=== PATIENT | male | born 1950 | race African-American/Black ===

== ENCOUNTER 2018-02-15 20:38 | Emergency (ER) | payer MEDICARE, MEDICAID ==
[~2018-02-15 20:38] MED LIST: ISOVUE-370 76%-LOCM 1 ML ONE
[2018-02-15] MEDS ORDERED: hydrALAZINE 20 MG/ML VIAL ONE (21:02)
[2018-02-15 21:20] LABS: #Eosinphils 0.1 thou/uL (0.0-0.7); #Lymphocytes 1.2 thou/uL (1.20-3.40); #Monocytes 0.8 thou/uL (0.11-0.59); #Neutrophils 5.3 thou/uL (1.40-6.50); %Basophils 0.3 % (0.0-1.0); %Eosinophils 1.7 % (0.0-10.0); %Lymphocytes 15.8 % (21.0-51.0); %Monocytes 10.8 % (0.0-10.0); %Neutrophils 71.4 % (42.0-75.0); Mean Corpuscular HGB CONC 33.3 g/dL (32.0-36.0); Mean Corpuscular Hemoglobin 32.4 pg (27.0-31.0); Mean Corpuscular Volume 97.2 fL (78.0-98.0); Mean Platelet Volume 7.9 fL (7.4-10.4); Platelet Count 212 thou/uL (130-400); RBC Distribution Width 11.8 % (11.5-14.5); Red Blood Cell (RBC) Count 4.33 mill/uL (4.70-6.10); White Blood Cell (WBC) Count 7.4 thou/uL (4.8-10.8)
--- NOTE | 2018-02-15 21:38 | RAD ---
FRONTAL VIEW CHEST SERIES: INDICATIONS: Chest pain. COMPARISON: 01/24/2017 FINDINGS: Postoperative findings of the chest are again seen. The cardiac silhouette is accentuated by the por table technique and patient rotation. There is hyperinflation of the lungs with interstitial promine nce. No additional significant interval change. IMPRESSION: 1. Postoperative chest. 2. Chronic obstructive pulmonary disease. POS: [facility]
[2018-02-15 21:43] LABS: ALT (SGPT) 11 U/L (8-55); AST (SGOT) 12 U/L (5-34); Albumin 3.8 g/dL (3.4-4.8); Alkaline Phosphatase 83 U/L (40-150); Anion Gap 9 mmol/L (10-20); BUN (Urea Nitrogen) 10 mg/dL (8.4-25.7); Bilirubin, Total 0.6 mg/dL (0.2-1.2); CK (CPK) 57 U/L (30-200); Calc. Creatinine Clearance 0 mL/min (70-130); Calcium 10.3 mg/dL (7.8-10.44); Carbon Dioxide 30 mmol/L (23-31); Chloride 104 mmol/L (98-107); Estimated GFR-MDRD 74; Globulin 3.2 g/dL (2.4-3.5); Glucose 104 mg/dL (80-115); Lipase 9 U/L (8-78); Potassium 4.1 mmol/L (3.5-5.1); Sodium 139 mmol/L (136-145)
[2018-02-15 21:47] LABS: Troponin I Less than 0.010 ng/mL (< 0.028)
--- NOTE | 2018-02-15 22:48 | CT ---
CT ABDOMEN AND PELVIS WITH CONTRAST: INDICATIONS: Abdominal pain. COMPARISON: 01/24/2017 FINDINGS: There is scattered patchy density of the imaged lung bases that may relate to atelectasis. Intersper sed lucency is consistent with pulmonary emphysema. Extensive vascular disease is present, as was de picted on prior aortogram on 01/24/2017, with aneurysmal dilatation of the abdominal aorta, measuring approximately 3.5 cm, grossly stable. Marked vascular disease of the bilateral iliac arteries as we ll. The bowel is incompletely characterized without enteric contrast administration. Stable promine nce of the right renal pelvis is seen. There are hypodensities of the bilateral renal parenchyma, gr ossly stable, too small to definitively characterized. No free air visualized. Scattered osseous de generative changes seen. IMPRESSION: 1. Extensive atherosclerotic vascular disease with redemonstration of abdominal aortic aneurysm. 2. Incomplete assessment of the bowel without enteric contrast. POS: [facility]
[2018-02-15 23:25] LABS: Troponin I 0.011 ng/mL (< 0.028)
== END 2018-02-16 00:39 | disposition home or self-care (01) ==
LOC: ERS 20:38
DX: R10.32 Left lower quadrant pain (principal); J44.9 Chronic obstructive pulmonary disease, unspecified; I25.10 Atherosclerotic heart disease of native coronary artery without angina pectoris; I10 Essential (primary) hypertension; F17.220 Nicotine dependence, chewing tobacco, uncomplicated; Z79.82 Long term (current) use of aspirin; Z79.899 Other long term (current) drug therapy
CPT/HCPCS: 36415; 71045; 74177; 80053; 82553; 83690; 83880; 84484; 85025; 93005; 96374; J0360

== ENCOUNTER 2018-02-24 09:19 | Emergency (ER) | payer MEDICARE, OTHER ==
[2018-02-24 10:15] LABS: Hemoglobin 12.8 g/dL (14.0-18.0); Mean Corpuscular HGB CONC 31.7 g/dL (32.0-36.0); Mean Corpuscular Hemoglobin 30.6 pg (27.0-31.0); Mean Corpuscular Volume 96.4 fL (78.0-98.0); Mean Platelet Volume 7.3 fL (7.4-10.4); Platelet Count 311 thou/uL (130-400); RBC Distribution Width 11.5 % (11.5-14.5); Red Blood Cell (RBC) Count 4.18 mill/uL (4.70-6.10)
[2018-02-24 10:38] LABS: Band 4 % (5-11); Eosinophils 1 % (0-10); Lymphocytes 7 % (21-51); MDiff Complete? YES; Monocytes 3 % (0-10); Neutrophil 85 % (42-75); RBC Morphology Normal
[2018-02-24 10:43] LABS: ALT (SGPT) 17 U/L (8-55); AST (SGOT) 18 U/L (5-34); Albumin 3.3 g/dL (3.4-4.8); Alkaline Phosphatase 103 U/L (40-150); Anion Gap 15 mmol/L (10-20); BUN (Urea Nitrogen) 10 mg/dL (8.4-25.7); Bilirubin, Total 0.6 mg/dL (0.2-1.2); Calc. Creatinine Clearance 0 mL/min (70-130); Calcium 10.8 mg/dL (7.8-10.44); Carbon Dioxide 25 mmol/L (23-31); Chloride 101 mmol/L (98-107); Estimated GFR-MDRD 90; Globulin 3.9 g/dL (2.4-3.5); Glucose 98 mg/dL (80-115); Lipase 4 U/L (8-78); Potassium 4.5 mmol/L (3.5-5.1); Protein, Total 7.2 g/dL (5.8-8.1); Sodium 136 mmol/L (136-145)
[2018-02-24] MEDS ORDERED: Mag-Al 1200 mg/1200 mg/30 ML UDCUP ONE (11:39)
[2018-02-24] MEDS ORDERED: hydrALAZINE 20 MG/ML VIAL ONE (11:39)
[2018-02-24] MEDS ORDERED: Lidocaine Viscous Sol 2% 15 ml UD Cup ONE (11:39)
[2018-02-24 12:25] LABS: Bilirubin Negative (Negative); Blood, Urine Negative (Negative); Clarity CLEAR (Clear); Glucose, Urine (Dipstick) Negative (Negative); Leukocyte Negative (Negative); Nitrite Negative (Negative); Protein, Urine (Dipstick) Negative (Neg-Trace); Specific Gravity, Urine 1.009 (1.002-1.036)
[2018-02-24] MEDS ORDERED: cloNIDine 0.1 MG TAB ONE (12:25)
--- NOTE | 2018-02-26 16:37 | EKG ---
Test Reason : Blood Pressure : / mmHG Vent. Rate : 069 BPM Atrial Rate : 069 BPM P-R Int : 166 ms QRS Dur : 094 ms QT Int : 410 ms P-R-T Axes : 065 -13 015 degrees QTc Int : 439 ms Normal sinus rhythm with sinus arrhythmia Possible Inferior infarct , age undetermined Abnormal ECG Confirmed by DOUGLAS BERMUDEZ ([id number]), television news video editor ESCOBAR MCCRAY ([id number]) on 02/26/2018 4:37:22 PM Referred By: Confirmed By:DOUGLAS BERMUDEZ
== END 2018-02-24 14:05 | disposition home or self-care (01) ==
LOC: ERS 09:19
DX: R10.9 Unspecified abdominal pain (principal); I10 Essential (primary) hypertension; J44.9 Chronic obstructive pulmonary disease, unspecified; I25.10 Atherosclerotic heart disease of native coronary artery without angina pectoris; F17.210 Nicotine dependence, cigarettes, uncomplicated; Z79.82 Long term (current) use of aspirin; Z79.899 Other long term (current) drug therapy
CPT/HCPCS: 36415; 80053; 81003; 83690; 85025; 93005; 96361; 96374; J0360

== ENCOUNTER 2018-08-09 13:47 | Outpatient (CLI) | payer MEDICARE, MEDICAID ==
--- NOTE | 2018-08-09 15:48 | PET ---
PET CT: HISTORY: Pulmonary mass. COMPARISON: CT of the chest 07/08/2018. TECHNIQUE: A PET CT was performed from the skull base to the mid thigh after administration of 10.1 mCi of F18-F DG. FINDINGS: There is a right perihilar mass with a maximum SUV value of 10.3. Peripheral to this mass and extend ing from the mass, there are multiple areas of nodularity. None of these areas of nodularity are hyp ermetabolic. These have not changed in appearance compared to the prior chest CT. There is an area of metabolic activity in the left upper lobe. This is in the region of the previous ly seen ground-glass attenuation of the left upper lobe. Max SUV value of this region is 2.0. No ot her areas of metabolic or hypermetabolic activity are seen within the lungs. No pleural effusion is seen. The heart is normal in size. No hypermetabolic mediastinal or hilar lymph nodes are appreciated. No suspicious areas of hypermetabolic activity are seen within the neck. No suspicious areas of hype rmetabolic activity are seen within the abdomen or pelvis. No suspicious areas of hypermetabolic act ivity are seen in the skeleton. Dense atherosclerotic calcifications were seen in the aorta. There is stent graft along the aortic arch and descending thoracic aorta. There is ectasia of the infrarenal aorta. No enlarged or hyperm etabolic lymph nodes are seen in the abdomen or pelvis. IMPRESSION: 1. The right pulmonary mass is hypermetabolic and concerning for malignancy. 2. There is metabolic activity in the left upper lobe also concerning for malignancy, although this region is not yet hypermetabolic. However, this is not extensively soft tissue density and primarily is ground-glass attenuation. 3. The multiple areas of nodularity surrounding the right hilar mass do not demonstrate hypermetabol ic activity. POS: [facility]
== END 2018-08-09 13:48 | disposition home or self-care (01) ==
LOC: PET 13:47
PROVIDERS: ATTEND Internal Medicine
DX: R91.8 Other nonspecific abnormal finding of lung field (principal)
CPT/HCPCS: 78815; A9552

== ENCOUNTER 2018-08-26 08:00 | Day surgery (SDC) | payer MEDICARE, MEDICAID ==
[2018-08-23 12:18] VITALS: BMI 19.8
[2018-08-26] MEDS ORDERED: Albuterol Sulfate 1.25 MG/3 ML NEB ONE (09:46)
[2018-08-26] MEDS ORDERED: Fentanyl 100 MCG/2 ML VIAL ONE (11:36)
[2018-08-26 14:02] LABS: BF Color Red; Body Fluid Source Bronchial Washings; Clarity Cloudy/Turbid (Clear); RBC Background Count 0.002; RBC Count-Automated 233000 /cumm; Tube # EDTA; WBC Background Count 0.03; WBC/NonHematic-Auto 209 /cumm
[2018-08-26 14:29] LABS: BF Segmented Neutrophils 28 %; Cell Count Non Hematic 44 %; Eosinophils 2 %; Lymphocytes 24 %
[2018-08-26] MEDS ORDERED: PROPOFOL 200 MG/20 ML VIAL ONE (15:44)
[2018-08-26] MEDS ORDERED: Dexamethasone 20 MG/5 ML VIAL ONE (15:44)
[2018-08-26] MEDS ORDERED: Glycopyrrolate 0.2 MG/ML 5 ML SYRINGE ONE (15:44)
[2018-08-26] MEDS ORDERED: Ondansetron PF 4 MG/2 ML Vial ONE (15:44)
[2018-08-26] MEDS ORDERED: Rocuronium Bromide 10 MG/ML (10ML VIAL) ONE (15:44)
[2018-08-26] MEDS ORDERED: PHENYLEPHRINE-NS 100 MCG/ML 10 ML SYRINGE ONE (15:44)
[2018-08-26] MEDS ORDERED: Lidocaine 1% PF 5 ML VIAL ONE (15:44)
--- NOTE | 2018-08-26 16:10 | OP ---
DATE OF PROCEDURE: 08/26/2018 SERVICE: Pulmonary Medicine. PROCEDURE PERFORMED: Fiberoptic bronchoscopy with; 1. Visual airway inspection. 2. Endobronchial brush of the right upper lobe. 3. Bronchoalveolar lavage of the right upper lobe. 4. Endobronchial biopsy of the right upper lobe. 5. Transbronchial biopsy of the right upper lobe. PREPROCEDURE DIAGNOSIS: Pulmonary mass. POSTPROCEDURE DIAGNOSIS: Pulmonary mass. MEDICATIONS USED: For list of medications, please refer to anesthesia documentation. PREANESTHESIA ASSESSMENT: H and P had been performed. The patient's medications and allergies were reviewed. Informed consent was obtained after discussing the risks, benefits, and rationale for performing the procedure in addition to the alternative options. DESCRIPTION OF PROCEDURE: Time-out was performed identifying the correct procedure and patient with name and date of . A diagnostic fiberoptic bronchoscope was introduced through the 8.0 endotracheal tube. The bronchoscope was advanced into the trachea, where a tracheobronchial tree inspection was carried out with clear identification of the right upper lobe, right middle lobe, left upper lobe, lingula, and left lower lobe. Anatomy was essentially normal to the segmental level. There appeared to be some extrinsic compression of the superior segment of the right upper lobe with some degree of mucosal irregularity. Bronchoalveolar lavage was obtained from the anterior and superior segments of the right upper lobe. Endobronchial brushings were obtained from the superior segment and anterior segment of the right upper lobe under fluoroscopic guidance. Transbronchial biopsies were also performed in the anterior segment of the right upper lobe. Endobronchial biopsy was obtained on the irregular mucosa where there was extrinsic compression of the superior segment of the right upper lobe. Hemostasis was verified and the bronchoscope was subsequently removed from the patient. Postprocedure fluoroscopy did not demonstrate a pneumothorax. FINDINGS: 1. Mucosal irregularities of the superior segment of the right upper lobe were identified. Biopsies were taken at that site. 2. Secretions were minimal. SPECIMENS OBTAINED: 1. Transbronchial biopsies, endobronchial biopsy, BAL, and brushing, all for pathology. 2. Microbiology on BAL. COMPLICATIONS: None. ESTIMATED BLOOD LOSS: 5 mL. FLUOROSCOPY TIME: Less than 3 minutes. DISPOSITION: The patient will be discharged home with postprocedure instructions. He will return to clinic as previously directed. Job ID: [id number] [facility]
[2018-08-30 10:22] LABS: Fungus Stain Final report (.)
== END 2018-08-26 15:30 | disposition home or self-care (01) ==
LOC: SDC 08:00
PROVIDERS: ATTEND Internal Medicine
PROC: 0BB48ZX Excision of Right Upper Lobe Bronchus, Via Natural or Artificial Opening Endoscopic, Diagnostic (ICD-10-PCS; principal; 2018-08-26)
PROC: 0B9C8ZX Drainage of Right Upper Lung Lobe, Via Natural or Artificial Opening Endoscopic, Diagnostic (ICD-10-PCS; 2018-08-26)
DX: J98.4 Other disorders of lung (principal); I10 Essential (primary) hypertension; E78.5 Hyperlipidemia, unspecified; I25.10 Atherosclerotic heart disease of native coronary artery without angina pectoris; I48.91 Unspecified atrial fibrillation; Z95.1 Presence of aortocoronary bypass graft; F17.210 Nicotine dependence, cigarettes, uncomplicated; Z79.82 Long term (current) use of aspirin; Z79.899 Other long term (current) drug therapy; Z88.0 Allergy status to penicillin; Z88.8 Allergy status to other drugs, medicaments and biological substances
CPT/HCPCS: 85060; 87070; 87077; 87102; 87116; 87205; 87206; 88112; 88305; 88312; 89051; J1100; J2001; J2405; J2704; J3010; J7620

== ENCOUNTER 2018-09-05 22:09 | Inpatient (IN) | payer MEDICARE, MEDICAID ==
[2018-09-05 22:30] LABS: #Basophils 0.1 thou/uL (0.0-0.2); #Eosinphils 0.1 thou/uL (0.0-0.7); #Lymphocytes 1.1 thou/uL (1.20-3.40); #Monocytes 1.1 thou/uL (0.11-0.59); #Neutrophils 10.4 thou/uL (1.40-6.50); %Basophils 0.6 % (0.0-1.0); %Eosinophils 0.6 % (0.0-10.0); %Lymphocytes 8.2 % (21.0-51.0); %Monocytes 8.9 % (0.0-10.0); %Neutrophils 81.7 % (42.0-75.0); Hemoglobin 12.7 g/dL (14.0-18.0); Mean Corpuscular Hemoglobin 30.2 pg (27.0-31.0); Mean Corpuscular Volume 97.6 fL (78.0-98.0); Mean Platelet Volume 7.2 fL (7.4-10.4); Platelet Count 406 thou/uL (130-400); RBC Distribution Width 12.9 % (11.5-14.5); Red Blood Cell (RBC) Count 4.21 mill/uL (4.70-6.10); White Blood Cell (WBC) Count 12.8 thou/uL (4.8-10.8)
[2018-09-05] MEDS ORDERED: Azithromycin 500 MG VIAL ONE (22:39)
[2018-09-05] MEDS ORDERED: cefTRIAXone\\ROCEPHIN 2 GM VIAL ONE (22:39)
[2018-09-05 22:49] LABS: ALT (SGPT) 19 U/L (8-55); AST (SGOT) 18 U/L (5-34); Albumin 3.6 g/dL (3.4-4.8); Alkaline Phosphatase 118 U/L (40-150); Anion Gap 16 mmol/L (10-20); BUN (Urea Nitrogen) 10 mg/dL (8.4-25.7); Bilirubin, Total 0.8 mg/dL (0.2-1.2); Calc. Creatinine Clearance 0 mL/min (70-130); Calcium 10.7 mg/dL (7.8-10.44); Carbon Dioxide 24 mmol/L (23-31); Chloride 103 mmol/L (98-107); Estimated GFR-MDRD Greater than 90; Globulin 4.1 g/dL (2.4-3.5); Glucose 130 mg/dL (80-115); Potassium 3.6 mmol/L (3.5-5.1); Protein, Total 7.7 g/dL (5.8-8.1); Sodium 139 mmol/L (136-145)
--- NOTE | 2018-09-05 23:35 | RAD ---
ONE VIEW CHEST: History: Cough. Difficulty breathing. Correlation: Chest CT 07-08-18. Comparison: 07-03-18. FINDINGS: Worsening opacification of right hemithorax likely due to obstructive atelectasis, pneumonia or progr ession of tumor. There are also increased opacities in the right lower lobe and left lower lobe which may represent infiltrate. There is no pneumothorax. Stable post-surgical changes with a stent overly ing the aorta and sternotomy wires. Stable configuration of the cardiac silhouette. IMPRESSION: Worsening opacification lung parenchyma as described above. Findings favor progression of disease. Virgen per imposed pneumonia cannot be excluded. POS: [facility]
[2018-09-06] MEDS ORDERED: Ondansetron PF 4 MG/2 ML Vial IVP PRN (00:56)
[2018-09-06] MEDS ORDERED: Ondansetron ODT 4 MG TAB PO PRN (00:56)
[2018-09-06 05:23] LABS: Anion Gap 14 mmol/L (10-20); BUN (Urea Nitrogen) 10 mg/dL (8.4-25.7); Calc. Creatinine Clearance 0 mL/min (70-130); Calcium 10.1 mg/dL (7.8-10.44); Carbon Dioxide 22 mmol/L (23-31); Chloride 105 mmol/L (98-107); Estimated GFR-MDRD Greater than 90; Glucose 161 mg/dL (80-115); Potassium 4.1 mmol/L (3.5-5.1); Sodium 137 mmol/L (136-145)
[2018-09-06 05:44] LABS: Band 7 % (5-11); Hemoglobin 12.2 g/dL (14.0-18.0); Lymphocytes 4 % (21-51); MDiff Complete? YES; Mean Corpuscular HGB CONC 31.8 g/dL (32.0-36.0); Mean Corpuscular Volume 97.5 fL (78.0-98.0); Mean Platelet Volume 7.1 fL (7.4-10.4); Monocytes 2 % (0-10); Neutrophil 87 % (42-75); Platelet Count 371 thou/uL (130-400); Red Blood Cell (RBC) Count 3.92 mill/uL (4.70-6.10); White Blood Cell (WBC) Count 13.4 thou/uL (4.8-10.8)
--- NOTE | 2018-09-06 06:48 | HP ---
PRIMARY CARE DOCTOR: Dr. Cristiano Philip. CODE STATUS: Full code. TIME OF EVALUATION: 11:10 p.m. CHIEF COMPLAINT: Cough. HISTORY OF PRESENT ILLNESS: This is a 68-year-old male patient with past medical history of COPD, coronary artery disease, and hypertension. He also follows with Dr. Khan as outpatient. He reported that Dr. Khan has been doing workup to rule out lung cancer and he came to the hospital after having cough that has been persistent for couple of weeks, gradually getting worse, especially for the past few days with no clear triggers, no alleviating factors, the symptoms were related as moderate, associated with chills. Reportedly, Dr. Khan has done a biopsy of the right lung recently. REVIEW OF SYSTEMS: CONSTITUTIONAL: The patient has chills. No fever or generalized weakness. RESPIRATORY: The patient has cough, greenish sputum production, shortness of breath. CARDIOVASCULAR: No chest pain or palpitation. GASTROINTESTINAL: No nausea. No vomiting, diarrhea, or abdominal pain. CENTRIFUGAL CHILLER TECHNICIAN: No dizziness, headache, or feeling lightheaded. GENITOURINARY: No burning on urination. EXTREMITIES: No leg swelling. All other systems were reviewed and negative except for the findings mentioned above. PAST MEDICAL HISTORY: As mentioned in the HPI. PAST SURGICAL HISTORY: The patient has coronary artery bypass graft surgery, 2 vessels; left knee surgery, and aortic dissection surgery with aortic repair in 11/2016. PSYCHIATRIC HISTORY: No previous psych history. SOCIAL HISTORY: The patient denies alcohol or drugs. The patient does smoke on a daily basis, half a pack per day. FAMILY HISTORY: Reviewed and noncontributory for current presentation. No history of cancer. Mother and aunt; history of CABG. KNOWN ALLERGIES: To Cardizem and penicillin. REPORTED MEDICATIONS: 1. Aspirin. 2. Metoprolol. 3. Cyclobenzaprine. 4. Clonidine. 5. Lisinopril. 6. Amiodarone. 7. Pepcid. 8. Amlodipine. PHYSICAL EXAMINATION: VITAL SIGNS: On presentation, the patient has blood pressure 174/84 with heart rate 107, respiratory rate was 22, and temperature 99.3. Pain 7/10. GENERAL APPEARANCE: The patient is alert, oriented, not in acute distress. HEENT: Eyes, normal conjunctivae. Moist oral mucosa. Anicteric. No JVD. The patient has a 2 x 2 inch mass in the right submandibular area that seems to be a cyst. RESPIRATORY: Bilateral air entry. The patient has scattered rales. No wheezing. Symmetric expansion. CARDIOVASCULAR: Normal rate. Regular rhythm. No murmurs. No gallop. No edema. Occasional tachycardia. ABDOMEN: Soft. Normal bowel sounds. MUSCULOSKELETAL: Baseline range of motion and strength. No tenderness. SKIN: Warm, intact. No pallor. No rash. No redness. Peripheral pulses are present. Capillary refill seems to be intact. NEURO: No evidence of any new focal weakness. Baseline speech. Cranial nerves seem to be intact. PSYCH: The patient has good mood. No anxiety. Optimal judgment. DIAGNOSTIC STUDIES: CARDIOVASCULAR STUDIES: EKG was reviewed. The patient has sinus rhythm with occasional PVCs, ventricular rate is 99, WI is 166, QRS 96, QT corrected 436, ST and T-wave abnormalities, consider lateral ischemia. IMAGING STUDIES: Chest x-ray was reviewed. The patient has worsening opacification of the lung parenchyma as described above, findings favor progression of disease. Superimposed pneumonia cannot be excluded. LABORATORY RESULTS: Labs were reviewed. The patient has white count 12.8, hemoglobin 12.7, MCV 97.6, and platelet count 406. Sodium 139, potassium 3.6, chloride 103, carbon dioxide 24, anion gap 16, BUN 10, creatinine 0.9, glucose 130, the repeat 161, lactic acid 1.4, and calcium 10.7 and repeat 10.1. LFTs were negative. ASSESSMENT AND PLAN: The patient will be placed in the hospital with following medical problems: 1. Right lower lobe and left lower lobe pneumonia, seen on the chest x-ray, this seems to be related or complicating an underlying possible mass, we will place the patient on antibiotics, we will follow cultures, we will adjust treatment as needed. 2. Possible lung mass. The patient had the lung biopsy reportedly, and Dr. Khan has been following this patient. Might be neville to consult Dr. Khan for any further recommendation with this patient. Also, the patient might need possible bronchoscopy. 3. Sepsis. The patient has tachycardia, leukocytosis, source is pneumonia, treatment as above. 4. History of chronic obstructive pulmonary disease, this is chronic, seems to be stable, we will reconcile home medications. If goes into exacerbation due to infection, we will adjust treatment. 5. Uncontrolled hypertension. The patient presented with systolic blood pressure of 174. We will reconcile home medications, adjust treatment as needed. We will not treat aggressively since the patient is septic and the risk of hypotension. 6. Deep venous thrombosis prophylaxis. Job ID: [id number]
[2018-09-06] MEDS ORDERED: Spiriva 18 MCG CAP (Box of 5 Caps) INH SCH (07:00)
[2018-09-06] MEDS: Atorvastatin Calcium 20 MG TAB PO SCH (07:56)
[2018-09-06] MEDS: Acetaminophen 325 MG TAB PO PRN (07:56)
[2018-09-06] MEDS: Amiodarone 200 MG TAB PO SCH ×2 (07:56→20:18)
[2018-09-06] MEDS: Mometasone/Formoterol 120 PUFF INHALER INH SCH ×2 (08:18→18:44)
[2018-09-06] MEDS ORDERED: Enoxaparin Sodium 40 MG/0.4 ML SYRINGE SC SCH (09:00)
[2018-09-06] MEDS ORDERED: Metoprolol Tartrate 50 MG TAB PO SCH (09:00)
[2018-09-06] MEDS: Senokot S 8.6-50 MG TAB PO SCH ×2 (09:56→20:18)
[2018-09-06] MEDS: Saccharomyces boulardii 250 MG CAP PO SCH (09:56)
[2018-09-06] MEDS: Polyethylene Glycol 3350 17 GM Packet PO SCH (09:56)
[2018-09-06] MEDS ORDERED: cloNIDine 0.1 MG TAB PO PRN (14:28)
--- NOTE | 2018-09-06 16:51 | PRG ---
DATE OF SERVICE: 09/06/2018 SUBJECTIVE: The patient was seen and examined at the bedside. He has cough productive of thick whitish phlegm. No significant wheezing. No chest pain or palpitations reported. OBJECTIVE: VITAL SIGNS: Temperature 98.7, pulse rate of 75, respirations of 17, blood pressure of 158/74 with O2 saturation 94% on 3 L nasal cannula. GENERAL: A 68-year-old male, thin built, in no apparent distress. LUNGS: Show rhonchi and rales, especially at the right base. There was scattered wheezing. No accessory muscle use. HEART: S1 and S2 present. Regular rate and rhythm. No rubs or gallops appreciated. ABDOMEN: Soft, nontender. Bowel sounds present. EXTREMITIES: No edema or calf tenderness. NEUROLOGIC: Grossly nonfocal. REVIEW OF SYSTEMS: The patient denies any nausea, vomiting, fever, or chills at this time. LABORATORY DATA: WBC 13.4 with hemoglobin 12.2, hematocrit 38.2, platelets of 371. Chemistry showed sodium 137, potassium 4.1, chloride 105, bicarb 22, BUN 10, creatinine 0.8. Blood cultures have been negative. Influenza testing negative. Chest x-ray by my review showed worsening opacification of the right hemithorax, likely due to obstructive atelectasis, pneumonia, or progression of the tumor. Telemetry monitoring by my review showed sinus rhythm. IMPRESSION: 1. Sepsis secondary to pneumonia, probably obstructive. Questionable pneumococcus. 2. Coronary artery disease, status post coronary artery bypass graft. 3. Hypertension. 4. [id number]-qesb smoking history. 5. History of aortic dissection, status post repair in 2017. 6. Lung mass with recent bronchoscopy. 7. Chronic anemia. 8. Weight loss. PLAN: Current antibiotics, which include ceftriaxone and azithromycin will be continued. We will resume clonidine. We will continue other medications including amiodarone, Lipitor, and nebulizer treatments. We will change metoprolol tartrate 50 mg daily to 25 mg b.i.d. Treat constipation. Repeat labs in a.m. Consult Pulmonary, Dr. Peng. Plan was discussed with the patient in detail. He stated understanding. Job ID: [id number]
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
[2018-09-06] MEDS: cloNIDine 0.1 MG TAB PO SCH (20:19)
[2018-09-06] MEDS: Azithromycin 500 MG in Sodium Chloride 0.9% 250 ML 250 ML IVPB SCH (20:19)
[2018-09-06] MEDS: cefTRIAXone\\ROCEPHIN 1 GM in Sodium Chloride 0.9% 100 ML IVPB SCH (22:43)
[2018-09-07 06:47] LABS: #Lymphocytes 1.2 thou/uL (1.20-3.40); #Monocytes 0.9 thou/uL (0.11-0.59); #Neutrophils 13.3 thou/uL (1.40-6.50); %Basophils 0.1 % (0.0-1.0); %Eosinophils 0.1 % (0.0-10.0); %Lymphocytes 7.9 % (21.0-51.0); %Monocytes 5.8 % (0.0-10.0); %Neutrophils 86.1 % (42.0-75.0); Hemoglobin 11.9 g/dL (14.0-18.0); Mean Corpuscular HGB CONC 32.1 g/dL (32.0-36.0); Mean Corpuscular Hemoglobin 30.7 pg (27.0-31.0); Mean Corpuscular Volume 95.7 fL (78.0-98.0); Mean Platelet Volume 7.3 fL (7.4-10.4); Platelet Count 406 thou/uL (130-400); RBC Distribution Width 12.9 % (11.5-14.5); Red Blood Cell (RBC) Count 3.87 mill/uL (4.70-6.10); White Blood Cell (WBC) Count 15.4 thou/uL (4.8-10.8)
[2018-09-07] MEDS: Mometasone/Formoterol 120 PUFF INHALER INH SCH ×2 (07:12→19:11)
[2018-09-07 07:13] LABS: ALT (SGPT) 22 U/L (8-55); AST (SGOT) 21 U/L (5-34); Albumin 2.9 g/dL (3.4-4.8); Alkaline Phosphatase 103 U/L (40-150); Anion Gap 11 mmol/L (10-20); BUN (Urea Nitrogen) 16 mg/dL (8.4-25.7); Bilirubin, Total 0.3 mg/dL (0.2-1.2); Calc. Creatinine Clearance 78 mL/min (70-130); Calcium 10.3 mg/dL (7.8-10.44); Carbon Dioxide 26 mmol/L (23-31); Chloride 107 mmol/L (98-107); Estimated GFR-MDRD Greater than 90; Globulin 3.5 g/dL (2.4-3.5); Glucose 101 mg/dL (80-115); Potassium 4.2 mmol/L (3.5-5.1); Protein, Total 6.4 g/dL (5.8-8.1); Sodium 140 mmol/L (136-145)
[2018-09-07] MEDS ORDERED: Fleet Enema 133 ML BOT PR PRN (09:07)
[2018-09-07] MEDS ORDERED: Bisacodyl 10 MG SUPP PR PRN (09:07)
[2018-09-07] MEDS: Senokot S 8.6-50 MG TAB PO SCH ×2 (09:40→20:50)
[2018-09-07] MEDS: Saccharomyces boulardii 250 MG CAP PO SCH (09:40)
[2018-09-07] MEDS: Polyethylene Glycol 3350 17 GM Packet PO SCH (09:40)
[2018-09-07] MEDS: Amiodarone 200 MG TAB PO SCH ×2 (09:40→20:35)
[2018-09-07] MEDS: Atorvastatin Calcium 20 MG TAB PO SCH (09:40)
[2018-09-07] MEDS: cloNIDine 0.1 MG TAB PO SCH ×2 (09:40→20:35)
[2018-09-07] MEDS: Metoprolol Tartrate 25 MG TAB PO SCH (20:35)
[2018-09-07] MEDS: cefTRIAXone\\ROCEPHIN 1 GM in Sodium Chloride 0.9% 100 ML IVPB SCH (20:36)
[2018-09-07] MEDS: Azithromycin 500 MG in Sodium Chloride 0.9% 250 ML 250 ML IVPB SCH (21:17)
--- NOTE | 2018-09-07 21:21 | PDOC.PN ---
- Subjective Encounter Start Date: 09/07/18 Encounter Start Time: 11:00 Patient seen and examined for Pneumonia. Productive cough +. No new complaints. No overnight events - Objective Resuscitation Status - Order Detail: 09/06/18 00:56 Resuscitation Status Routine Resuscitation Status: FULL: Full Resuscitation MAR Reviewed: Yes Vital Signs & Weight: Vital Signs (12 hours) Temp Pulse Resp BP Pulse Ox 09/07/18 18:52 72 20 93 L 09/07/18 16:00 97.9 F 81 20 158/81 H 91 L 09/07/18 14:46 68 20 91 L 09/07/18 11:42 97.5 F L 72 20 139/69 95 09/07/18 10:12 69 16 93 L Weight Admit Weight 151 lb 3.2 oz Weight 150 lb 6 oz I&O: 09/06/18 09/07/18 09/08/18 06:59 06:59 06:59 Intake Total 1780 590 Output Total 1600 Balance 180 590 Result Diagrams: 09/08/18 04:59 09/08/18 04:59 Phys Exam - Physical Examination Constitutional: NAD Respiratory: no wheezing B/L rhonchi with rales Cardiovascular: RRR, no rub Gastrointestinal: soft, positive bowel sounds Musculoskeletal: no edema Neurological: non-focal, moves all 4 limbs Dx/Plan - Plan DVT proph w/SCDs IMPRESSION: 1. Sepsis secondary to pneumonia, probably obstructive. Questionable pneumococcus. 2. Coronary artery disease, status post coronary artery bypass graft. 3. Hypertension. 4. Tjhzq-mrnv-ilkg smoking history. 5. History of aortic dissection, status post repair in 2017. 6. Lung mass with recent bronchoscopy. 7. Chronic anemia. 8. Weight loss. PLAN: Cont current Atbx Cont Nebs Cont current meds as below AM labs Microbiology 09/05/18 22:15 Nasal swab Influenza Types A,B Direct EIA - Final 09/05/18 22:22 Venous blood - Left Arm Blood Culture - Preliminary Specimen has been received and culture in progress. No Growth to date. 09/05/18 22:22 Venous blood - Left Arm Blood Culture - Preliminary NO GROWTH AT 48 HOURS 09/05/18 22:15 Venous blood - Right Arm Blood Culture - Preliminary Specimen has been received and culture in progress. No Growth to date. 09/05/18 22:15 Venous blood - Right Arm Blood Culture - Preliminary NO GROWTH AT 48 HOURS Laboratory Tests 09/07/18 06:01 WBC 15.4 H Review of Systems - Review of Systems Cardiovascular: negative: chest pain, palpitations, orthopnea, paroxysmal nocturnal dyspnea, edema, light headedness, other Gastrointestinal: negative: Nausea, Vomiting, Abdominal Pain, Diarrhea, Constipation, Melena, Hematochezia, Other - Medications/Allergies Allergies/Adverse Reactions: Allergies Allergy/AdvReac Type Severity Reaction Status Date / Time Penicillins Allergy Hives Verified 08/23/18 12:18 diltiazem HCl [From Cardizem] AdvReac Severe Hives Verified 08/23/18 12:18 Medications: Current Medications Acetaminophen (Tylenol) 650 mg PO Q4H PRN PRN Reason: Headache/Fever/Mild Pain (1-3) Last Admin: 09/06/18 07:56 Dose: 650 mg Albuterol/Ipratropium (Duoneb) 3 ml NEB [id number] [facility] Last Admin: 09/07/18 18:52 Dose: 3 ml Amiodarone HCl (Cordarone) 100 mg PO BID [facility] Last Admin: 09/07/18 20:35 Dose: 100 mg Atorvastatin Calcium (Lipitor) 20 mg PO DAILY [facility] Last Admin: 09/07/18 09:40 Dose: 20 mg Bisacodyl (Dulcolax) 10 mg FL DAILYPRN PRN PRN Reason: Constipation Clonidine (Catapres) 0.1 mg PO BID [facility] Last Admin: 09/07/18 20:35 Dose: 0.1 mg Clonidine (Catapres) 0.1 mg PO Q4H PRN PRN Reason: Systolic BP > 180 Azithromycin 500 mg/ Sodium (Chloride) 250 mls @ 250 mls/hr IVPB Q24HR [facility] Last Admin: 09/07/18 21:17 Dose: 250 mls Ceftriaxone Sodium 1 gm/ (Sodium Chloride) 100 mls @ 200 mls/hr IVPB Q24HR [facility] Last Admin: 09/07/18 20:36 Dose: 100 mls Metoprolol Tartrate (Lopressor) 25 mg PO BID [facility] Last Admin: 09/07/18 20:35 Dose: 25 mg Mometasone Furoate/Formoterol Fumar (Dulera 200 Mcg/5 Mcg Inhaler) 2 puff INH BID-RT [facility] Last Admin: 09/07/18 19:11 Dose: 2 puff Ondansetron HCl (Zofran Odt) 4 mg PO Q6H PRN PRN Reason: Nausea/Vomiting Ondansetron HCl (Zofran) 4 mg IVP Q6H PRN PRN Reason: Nausea/Vomiting Polyethylene Glycol (Miralax) 17 gm PO DAILY [facility] Last Admin: 09/07/18 09:40 Dose: 17 gm Saccharomyces Boulardii (Florastor) 250 mg PO DAILY [facility] Last Admin: 09/07/18 09:40 Dose: 250 mg Senna/Docusate Sodium (Senokot S) 1 tab PO BID [facility] Last Admin: 09/07/18 20:50 Dose: Not Given Sodium Biphosphate/Sodium Phosphate (Fleet Enema) 133 ml FL DAILY PRN PRN Reason: Constipation Last Admin: 09/07/18 13:10 Dose: 133 ml Sodium Chloride (Flush - Normal Saline) 10 ml IVF Q12HR [facility] Last Admin: 09/07/18 20:36 Dose: 10 ml Sodium Chloride (Flush - Normal Saline) 10 ml IVF PRN PRN PRN Reason: Saline Flush
[2018-09-07] MEDS: Acetaminophen 325 MG TAB PO PRN (23:58)
[2018-09-08 05:32] LABS: #Lymphocytes 1.5 thou/uL (1.20-3.40); #Monocytes 0.8 thou/uL (0.11-0.59); #Neutrophils 6.8 thou/uL (1.40-6.50); %Eosinophils 0.5 % (0.0-10.0); %Lymphocytes 16.1 % (21.0-51.0); %Monocytes 8.4 % (0.0-10.0); Hemoglobin 11.5 g/dL (14.0-18.0); Mean Corpuscular HGB CONC 30.9 g/dL (32.0-36.0); Mean Corpuscular Hemoglobin 30.3 pg (27.0-31.0); Mean Corpuscular Volume 98.1 fL (78.0-98.0); Platelet Count 382 thou/uL (130-400); RBC Distribution Width 12.9 % (11.5-14.5); Red Blood Cell (RBC) Count 3.79 mill/uL (4.70-6.10); White Blood Cell (WBC) Count 9.1 thou/uL (4.8-10.8)
[2018-09-08 05:49] LABS: Anion Gap 12 mmol/L (10-20); BUN (Urea Nitrogen) 13 mg/dL (8.4-25.7); Calc. Creatinine Clearance 81 mL/min (70-130); Calcium 10.2 mg/dL (7.8-10.44); Carbon Dioxide 24 mmol/L (23-31); Chloride 107 mmol/L (98-107); Estimated GFR-MDRD Greater than 90; Glucose 80 mg/dL (80-115); Magnesium 1.9 mg/dL (1.6-2.6); Potassium 4.7 mmol/L (3.5-5.1); Sodium 138 mmol/L (136-145)
[2018-09-08] MEDS: Mometasone/Formoterol 120 PUFF INHALER INH SCH ×2 (07:57→19:52)
[2018-09-08] MEDS: Amiodarone 200 MG TAB PO SCH ×2 (08:59→20:58)
[2018-09-08] MEDS: cloNIDine 0.1 MG TAB PO SCH ×2 (09:01→21:01)
[2018-09-08] MEDS: Atorvastatin Calcium 20 MG TAB PO SCH (09:01)
[2018-09-08] MEDS: Metoprolol Tartrate 25 MG TAB PO SCH ×2 (09:02→21:02)
[2018-09-08] MEDS: Saccharomyces boulardii 250 MG CAP PO SCH (09:03)
[2018-09-08] MEDS: Senokot S 8.6-50 MG TAB PO SCH ×2 (09:04→21:02)
[2018-09-08] MEDS: Polyethylene Glycol 3350 17 GM Packet PO SCH (09:07)
[2018-09-08] MEDS: Acetaminophen 325 MG TAB PO PRN (12:20)
[2018-09-08] MEDS ORDERED: predniSONE 20 MG TAB PO SCH (14:45)
--- NOTE | 2018-09-08 15:39 | PRG ---
DATE OF SERVICE: 09/08/2018 SERVICE: Pulmonary Medicine. INTERVAL HISTORY: The patient is doing fine from respiratory standpoint. His sputum production is actually becoming much less intense. He is not coughing as much. He feels like there is still some crud down in his lungs and he is having a hard time liberating. That being said, he is getting a significant amount of sputum up. He is starting to taper off a little bit. Denies any current fevers or chills or overnight events. Otherwise, things are moving in the right direction. PHYSICAL EXAMINATION: VITAL SIGNS: Afebrile. Pulse 72, blood pressure 137/72, respirations 16, and saturations 96% on 1 L nasal cannula. GENERAL: The patient is awake and alert, in no apparent distress. LUNGS: Rhonchi are present. They are worse on the right compared to the left. There is prolonged expiratory phase, but I do not hear overt wheezing. HEART: Normal rate, regular. ABDOMEN: Soft, nontender, and nondistended. Bowel sounds are positive. MUSCULOSKELETAL: No cyanosis or clubbing. There is no pitting in the bilateral lower extremities. NEUROLOGIC: Grossly nonfocal. LABORATORY DATA: WBC 9.1, hemoglobin 11.5, platelets 382,000. Basic metabolic profile and magnesium are unremarkable. Liver function studies were previously unremarkable. Blood cultures x2, and influenza A and B are negative. ASSESSMENT: 1. Acute hypoxic respiratory failure. 2. Community-acquired pneumonia. 3. PET positive pulmonary nodule, undergoing outpatient investigation. DISCUSSION AND PLAN: The patient is doing fine from respiratory standpoint. Continue antibiotics and nebulized medications. I will deescalate steroids. Pulmonary Critical Care will continue to follow along in this location. The patient is already set up for an outpatient percutaneous biopsy of the right upper lobe lesion. This thing is not progressing. We are dealing with as a cancer. It has been slow to grow with very long period of time. He is on room air and the patient is comfortable transitioning home, he can be discharged from the hospital. I will schedule some Mucinex to see if we can help liberate some sputum. Job ID: [id number]
[2018-09-08] MEDS: guaiFENesin ER 600 MG TAB PO SCH (21:02)
--- NOTE | 2018-09-08 23:10 | PDOC.PN ---
- Subjective Encounter Start Date: 09/08/18 Encounter Start Time: 14:00 Patient seen and examined for Pneumonia. Feels better. Productive cough - improving. No other complaints. No overnight events - Objective Resuscitation Status - Order Detail: 09/06/18 00:56 Resuscitation Status Routine Resuscitation Status: FULL: Full Resuscitation MAR Reviewed: Yes Vital Signs & Weight: Vital Signs (12 hours) Temp Pulse Resp BP BP Pulse Ox 09/08/18 21:01 137/77 09/08/18 20:00 98.6 F 65 19 137/77 97 09/08/18 19:53 91 L 09/08/18 19:52 91 L 09/08/18 16:00 97.4 F L 64 16 124/70 91 L 09/08/18 15:20 97 09/08/18 14:55 97.4 F L 64 16 124/70 97 09/08/18 14:30 62 16 90 L 09/08/18 11:11 97.9 F 72 16 137/72 96 Weight Admit Weight 151 lb 3.2 oz Weight 147 lb 3 oz I&O: 09/07/18 09/08/18 09/09/18 06:59 06:59 06:59 Intake Total 1780 1860 280 Output Total 1600 1325 450 Balance 180 535 -170 Result Diagrams: 09/08/18 04:59 09/08/18 04:59 EKG Reviewed by me: Yes (Tele SR) Phys Exam - Physical Examination Constitutional: NAD Respiratory: no wheezing B/L rhonchi Cardiovascular: RRR, no rub Gastrointestinal: soft, non-tender, positive bowel sounds Musculoskeletal: no edema Dx/Plan - Plan IMPRESSION: 1. Sepsis secondary to pneumonia, probably obstructive. ?anaerobic 2. Coronary artery disease, status post coronary artery bypass graft. 3. Hypertension. 4. Qnumh-juwa-rgel smoking history. 5. History of aortic dissection, status post repair in 2017. 6. Lung mass with recent bronchoscopy. 7. Chronic anemia. 8. Weight loss. PLAN: Cont current Atbx - change to PO in AM Cont Nebs Q6h Cont other meds as below Transfer to medical Review of Systems - Review of Systems Respiratory: Cough, SOB with Excertion, Sputum. negative: Dry, Shortness of Breath, Hemoptysis, Pleuritic Pain, Wheezing Gastrointestinal: negative: Nausea, Vomiting, Abdominal Pain, Diarrhea, Constipation, Melena, Hematochezia, Other Genitourinary: negative: Dysuria, Frequency, Incontinence, Hematuria, Retention , Other - Medications/Allergies Allergies/Adverse Reactions: Allergies Allergy/AdvReac Type Severity Reaction Status Date / Time Penicillins Allergy Hives Verified 08/23/18 12:18 diltiazem HCl [From Cardizem] AdvReac Severe Hives Verified 08/23/18 12:18 Medications: Current Medications Acetaminophen (Tylenol) 650 mg PO Q4H PRN PRN Reason: Headache/Fever/Mild Pain (1-3) Last Admin: 09/08/18 12:20 Dose: 650 mg Albuterol/Ipratropium (Duoneb) 3 ml NEB [id number] [facility] Last Admin: 09/08/18 19:52 Dose: 3 ml Amiodarone HCl (Cordarone) 100 mg PO BID [facility] Last Admin: 09/08/18 20:58 Dose: 100 mg Atorvastatin Calcium (Lipitor) 20 mg PO DAILY [facility] Last Admin: 09/08/18 09:01 Dose: 20 mg Bisacodyl (Dulcolax) 10 mg PA DAILYPRN PRN PRN Reason: Constipation Clonidine (Catapres) 0.1 mg PO BID [facility] Last Admin: 09/08/18 21:01 Dose: 0.1 mg Clonidine (Catapres) 0.1 mg PO Q4H PRN PRN Reason: Systolic BP > 180 Guaifenesin (Mucinex) 1,200 mg PO Q12HR [facility] Last Admin: 09/08/18 21:02 Dose: 1,200 mg Azithromycin 500 mg/ Sodium (Chloride) 250 mls @ 250 mls/hr IVPB Q24HR [facility] Last Admin: 09/07/18 21:17 Dose: 250 mls Ceftriaxone Sodium 1 gm/ (Sodium Chloride) 100 mls @ 200 mls/hr IVPB Q24HR [facility] Last Admin: 09/07/18 20:36 Dose: 100 mls Metoprolol Tartrate (Lopressor) 25 mg PO BID [facility] Last Admin: 09/08/18 21:02 Dose: 25 mg Mometasone Furoate/Formoterol Fumar (Dulera 200 Mcg/5 Mcg Inhaler) 2 puff INH BID-RT [facility] Last Admin: 09/08/18 19:52 Dose: 2 puff Ondansetron HCl (Zofran Odt) 4 mg PO Q6H PRN PRN Reason: Nausea/Vomiting Ondansetron HCl (Zofran) 4 mg IVP Q6H PRN PRN Reason: Nausea/Vomiting Polyethylene Glycol (Miralax) 17 gm PO DAILY [facility] Last Admin: 09/08/18 09:07 Dose: 17 gm Prednisone (Prednisone) 40 mg PO QAM[facility] Stop: 09/12/18 08:01 Saccharomyces Boulardii (Florastor) 250 mg PO DAILY [facility] Last Admin: 09/08/18 09:03 Dose: 250 mg Senna/Docusate Sodium (Senokot S) 1 tab PO BID [facility] Last Admin: 09/08/18 21:02 Dose: 1 tab Sodium Biphosphate/Sodium Phosphate (Fleet Enema) 133 ml PA DAILY PRN PRN Reason: Constipation Last Admin: 09/07/18 13:10 Dose: 133 ml Sodium Chloride (Flush - Normal Saline) 10 ml IVF Q12HR [facility] Last Admin: 09/08/18 21:11 Dose: 10 ml Sodium Chloride (Flush - Normal Saline) 10 ml IVF PRN PRN PRN Reason: Saline Flush
[2018-09-08] MEDS: cefTRIAXone\\ROCEPHIN 1 GM in Sodium Chloride 0.9% 100 ML IVPB SCH (23:44)
[2018-09-08] MEDS: Azithromycin 500 MG in Sodium Chloride 0.9% 250 ML 250 ML IVPB SCH (23:45)
[2018-09-09] MEDS: Mometasone/Formoterol 120 PUFF INHALER INH SCH (06:27)
[2018-09-09] MEDS: Senokot S 8.6-50 MG TAB PO SCH (07:48)
[2018-09-09] MEDS: Amiodarone 200 MG TAB PO SCH (07:48)
[2018-09-09] MEDS: cloNIDine 0.1 MG TAB PO SCH (07:49)
[2018-09-09] MEDS: guaiFENesin ER 600 MG TAB PO SCH (07:49)
[2018-09-09] MEDS: Saccharomyces boulardii 250 MG CAP PO SCH (07:50)
[2018-09-09] MEDS: Atorvastatin Calcium 20 MG TAB PO SCH (07:51)
[2018-09-09] MEDS: Metoprolol Tartrate 25 MG TAB PO SCH (07:51)
[2018-09-09] MEDS: Polyethylene Glycol 3350 17 GM Packet PO SCH (07:55)
[2018-09-09] MEDS ORDERED: predniSONE 20 MG TAB PO SCH (08:00)
--- NOTE | 2018-09-09 08:54 | PDOC.PN ---
- Subjective Encounter Start Date: 09/09/18 Encounter Start Time: 08:54 - Objective Resuscitation Status - Order Detail: 09/06/18 00:56 Resuscitation Status Routine Resuscitation Status: FULL: Full Resuscitation MAR Reviewed: Yes Vital Signs & Weight: Vital Signs (12 hours) Temp Pulse Resp BP BP Pulse Ox 09/09/18 08:07 98.8 F 63 18 165/87 H 88 L 09/09/18 07:49 137/77 09/09/18 06:27 75 14 96 09/09/18 06:25 59 L 16 96 09/09/18 00:23 65 16 94 L 09/08/18 23:50 98.2 F 65 20 159/88 H 94 L 09/08/18 22:50 94 L 09/08/18 21:01 137/77 Weight Admit Weight 151 lb 3.2 oz Weight 147 lb 3 oz I&O: 09/08/18 09/09/18 09/10/18 06:59 06:59 06:59 Intake Total 1860 950 Output Total 1325 450 Balance 535 500 Result Diagrams: 09/08/18 04:59 09/08/18 04:59 Dx/Plan - Plan Please see dc summary - Discharge Day Minutes spent coordinating discharge of patient: 35
[2018-09-09 12:04] VITALS: BP 130/71; TEMP 97.9
--- NOTE | 2018-09-09 12:08 | PRG ---
DATE OF SERVICE: 09/09/2018 SERVICE: Pulmonary Medicine INTERVAL HISTORY: The patient is doing okay from Respiratory standpoint. He is still coughing and bringing up a lot of yellow phlegm. That being said, it is easier to get up, and the phlegm is tapering off. He denies any current chest pain, fevers, or chills. Otherwise, he is hoping to be able to be discharged from the hospital today. He was able to get up and walk around the hallways. He did get a little fatigue, but was able to manage just fine. PHYSICAL EXAMINATION: VITAL SIGNS: Afebrile, pulse 63, blood pressure 165/87, respirations 18, saturation 96% on room air. GENERAL: The patient is awake and alert, in no apparent distress. LUNGS: Decent air entry. Rhonchi are present. HEART: Normal rate and regular. ABDOMEN: Soft, nontender, nondistended. Bowel sounds are positive. MUSCULOSKELETAL: No cyanosis or clubbing. There is no pitting in the bilateral lower extremities. NEUROLOGIC: Grossly nonfocal. ASSESSMENT: 1. Acute hypoxic respiratory failure, resolved. 2. Community-acquired pneumonia, likely postobstructive. 3. PET-positive nodule, undergoing outpatient investigation with transcutaneous needle biopsy later this month pending. DISCUSSION AND PLAN: The patient is stable for transition out of the hospital. I would like to continue a 10-day course of antibiotics that should cover most typical and anaerobic organisms. Pulmonary Critical Care will continue to follow, if he remains in-house, but my suspicion is he will be discharged today. I will have him return to clinic as previously directed after his outpatient biopsy, which is scheduled for later this month. Job ID: [id number]
[2018-09-09 12:46] VITALS: BMI 17.9
--- NOTE | 2018-09-09 15:01 | DIS ---
DATE OF ADMISSION: 09/05/2018 DATE OF DISCHARGE: 09/09/2018 DISCHARGE DISPOSITION: Home. FOLLOWUP: 1. Follow up with primary care physician, Dr. Philip, in 1 week. 2. Follow up with Dr. Khan, Pulmonology, as scheduled. ALLERGIES: THE PATIENT IS ALLERGIC TO PENICILLIN AND CARDIZEM. DISCHARGE MEDICATIONS: 1. Levaquin 500 mg daily for next 10 days. 2. Clindamycin 300 mg 3 times daily for next 10 days. 3. Prednisone 40 mg daily for 5 days. 4. Florastor 250 mg daily. 5. Mucinex 600 mg b.i.d. All other home medications were left unchanged. The patient was seen and examined on the day of discharge. Denies any new complaints. No chest pain or shortness of breath reported. Overall he feels much better. BRIEF HOSPITAL COURSE: The patient is a 68-year-old male with COPD with recent bronchoscopy with biopsy, presented to the emergency room with productive cough. Please refer to the history and physical for further details. The patient was admitted to the hospital with a diagnosis of sepsis secondary to pneumonia, suspected obstructive. He was started on IV antibiotics along with nebulizer treatments. He was evaluated by Pulmonary, Dr. Khan. His antibiotics will be changed to Levaquin and clindamycin for 10 more days. Initially, he was monitored on telemetry. His QT interval was normal on the EKG. He has been cleared by cleared by Pulmonology for discharge. FINAL DIAGNOSES: 1. Sepsis secondary to pneumonia, probably obstructive. 2. Coronary artery disease, status post coronary artery bypass grafting. 3. Hypertension. 4. Qwkrh-iabu-gkqu smoking history. 5. History of aortic dissection, status post repair in 2017. 6. Lung mass with recent bronchoscopy. 7. Chronic anemia. 8. Weight loss. PLAN: Plan of care was discussed with the patient in detail, he stated understanding. Job ID: [id number]
--- NOTE | 2018-09-09 18:13 | PQF ---
ANNABEL SALAS MALIK MD [id number] [facility] [id number] CLINICAL DOCUMENTATION IMPROVEMENT CLARIFICATION FORM: ICD-10 Updated PLEASE DO AN ADDENDUM TO THE PROGRESS NOTE WITH ANY DOCUMENTATION UPDATES OR ADDITIONS AND CARRY THROUGH TO DC SUMMARY. THANK YOU. Date: 09/09/2018 ATTN: DR. LAND Please exercise your independent, professional judgment in responding to the clarification form. Clinical indicators are provided on the bottom of this form for your review Please check appropriate box(s): [ ] Protein Calorie Malnutrition: [ ] Mild [ x ] Moderate [ ] Severe [ ] Other Malnutrition (please specify) [ ] Underweight without malnutrition [ ] Cachexia [ ] Other diagnosis [ ] Unable to determine CLINICAL INDICATORS - SIGNS / SYMPTOMS / LABS Malnutrition: 09/06 MORALES: IMPRESSION 3) CACHEXIA, LIKELY MALIGNANT BMI of _17.9_ BASED ON HEIGHT OF 6'4" and WEIGHT OF 150-lbs Two or More of the Followin. Weight Loss *09/06 PN-LADHA: PHYSICAL EXAM: THIN BUILT; ASSESSMENT: 8) WEIGHT LOSS 2. Loss of Muscle Mass *NADREW H&P: PHYSICAL EXAM: GENERAL: HE IS FAIRLY CACHECTIC WITH TEMPORAL MUSCLE WASTING & SUPRACLAVICULAR MUSCLE WASTING & STERNAL INTERCOSTAL MUSCLE WASTING WITH VISIBLE RIBS. 3. Loss of Subcutaneous Fat *09/06 NUTRITION ASMT: SUBJECTIVE: FAT WASTING OF CLAVICLE AREA; UNDERWEIGHT RISK FACTORS *Sepsis *B LL CAP, likely postobstructive *Lung mass with recent bronchoscopy TREATMENT *Dietary consult 09/06 *Nutritional supplements Moderate Malnutrition (in acute illness) Energy Intake: <75% of estimated energy requirement for > 7 days Weight Loss: 1-2%/1 week; 5%/ 1 month; 7.5%/3 months Other: mild body fat loss; mild muscle mass loss; mild fluid accumulation; Severe Malnutrition (in acute illness) Energy Intake: < 50% of estimated energy requirement for > 5 days Weight Loss: >1-2%/1 week; >5%/1 month; >7.5%/3 months Other: moderate body fat loss; moderate muscle mass loss; moderate- severe fluid accumulation; measurably reduced [employer] strength Moderate Malnutrition (in chronic illness) Energy Intake: <75% of estimated energy requirement for >1 month Weight Loss: 5%/1 month; 7.5%/3 months; 10%/6 months; 20%/1 year Other: mild body fat loss; mild muscle mass loss; mild fluid accumulation Severe Malnutrition (in chronic illness) Energy Intake: <75% of estimated energy requirement for >1 month Weight Loss: >5%/1 month; >7.5%/3 months; >10%/6 months; >20%/1 year Other: severe body fat loss; severe muscle mass loss; severe fluid accumulation ; measurably reduced [employer] strength Thank you, Viridiana (This form is maintained as a part of the permanent medical record) 2015 [employer] All Rights Reserved Viridiana Rodriguez RN, CDIS [email or web address] [phone] [email or web address]
== END 2018-09-09 15:15 | disposition home or self-care (01) | DRG 871 ==
LOC: ERS 22:09 → 2SE 23:00 → T4-A 09-08 22:54
PROVIDERS: ADMIT Hospitalist; ATTEND Hospitalist
DX: A41.9 Sepsis, unspecified organism (principal); J18.9 Pneumonia, unspecified organism; J96.01 Acute respiratory failure with hypoxia; E44.0 Moderate protein-calorie malnutrition; I10 Essential (primary) hypertension; J44.9 Chronic obstructive pulmonary disease, unspecified; I25.10 Atherosclerotic heart disease of native coronary artery without angina pectoris; D53.9 Nutritional anemia, unspecified; Z95.1 Presence of aortocoronary bypass graft; R91.8 Other nonspecific abnormal finding of lung field
CPT/HCPCS: 36415; 71045; 80048; 80053; 83605; 83735; 85025; 87040; 87804; 93005; 94640; J0456; J0696; J1650; J7050; J7620

== ENCOUNTER 2018-12-12 16:55 | Emergency (ER) | payer MEDICARE, MEDICAID ==
[2018-12-12] MEDS ORDERED: Albuterol Sulfate 2.5 mg/3 ml Neb ONE (17:25)
--- NOTE | 2018-12-12 17:31 | RAD ---
Chest one view HISTORY: Cough. Dyspnea. COMPARISON: 09/05/2018. FINDINGS: Cardiac silhouette is magnified by projection. Pulmonary vasculature upper limits of normal . Extensive scarring throughout the lungs is similar in appearance to prior study. Parenchymal opacity at the right base is less pronounced. Lungs remain hyperinflated. Postoperative changes media stinum and aortic stent are similar in appearance. No evidence of pneumothorax. IMPRESSION: Improved aeration of the right lower lobe compared to the most recent exam. Extensive par enchymal scarring and pulmonary hyperinflation are otherwise stable. No new abnormalities are evident.
[2018-12-12 17:32] LABS: Actual Bicarbonate (HCO3a) 24.6 mEq/L (22-28); Analyzer IN Cardio ER; Base Excess (BEa) -0.8 mEq/L (-2.0 to +3.0); CO2 Tension 43.4 mmHg (35.0-45.0); Calcium, Ionized 1.24 mmol/L (1.12-1.30); Carboxyhemoglobin (COHb) 2.1 gm% (0.0-3.0); Hemoglobin (Hb) 14.8 g/dL (14.0-18.0); O2 Tension (PaO2) 83.5 mmHg (> 80.0); Potassium - ABG Lab 3.99 mmol/L (3.70-5.30); pH, Arterial 7.37 (7.35-7.45)
[2018-12-12 17:34] LABS: Puncture Site RRA
[2018-12-12 17:40] LABS: #Eosinphils 0.1 thou/uL (0.0-0.7); #Lymphocytes 0.9 thou/uL (1.20-3.40); #Monocytes 0.6 thou/uL (0.11-0.59); #Neutrophils 2.6 thou/uL (1.40-6.50); %Basophils 0.4 % (0.0-1.0); %Eosinophils 1.3 % (0.0-10.0); %Lymphocytes 21.3 % (21.0-51.0); %Monocytes 13.4 % (0.0-10.0); %Neutrophils 63.5 % (42.0-75.0); Hemoglobin 14.9 g/dL (14.0-18.0); Mean Corpuscular HGB CONC 32.4 g/dL (32.0-36.0); Mean Corpuscular Volume 98.8 fL (78.0-98.0); Mean Platelet Volume 7.9 fL (7.4-10.4); Platelet Count 184 thou/uL (130-400); RBC Distribution Width 13.8 % (11.5-14.5); Red Blood Cell (RBC) Count 4.65 mill/uL (4.70-6.10); White Blood Cell (WBC) Count 4.1 thou/uL (4.8-10.8)
[2018-12-12 18:01] LABS: ALT (SGPT) 17 U/L (8-55); AST (SGOT) 18 U/L (5-34); Albumin 4.1 g/dL (3.4-4.8); Alkaline Phosphatase 69 U/L (40-150); Anion Gap 13 mmol/L (10-20); BUN (Urea Nitrogen) 17 mg/dL (8.4-25.7); Bilirubin, Total 0.4 mg/dL (0.2-1.2); CK (CPK) 75 U/L (30-200); Calc. Creatinine Clearance 0 mL/min (70-130); Calcium 9.9 mg/dL (7.8-10.44); Carbon Dioxide 24 mmol/L (23-31); Chloride 102 mmol/L (98-107); Estimated GFR-MDRD 81; Globulin 3.2 g/dL (2.4-3.5); Glucose 94 mg/dL (80-115); Lipase 9 U/L (8-78); Potassium 3.9 mmol/L (3.5-5.1); Protein, Total 7.3 g/dL (5.8-8.1); Sodium 135 mmol/L (136-145)
[2018-12-12] MEDS ORDERED: Dexamethasone 10 MG/ML VIAL ONE (18:31)
--- NOTE | 2018-12-17 14:52 | EKG ---
Test Reason : SOB Blood Pressure : / mmHG Vent. Rate : 070 BPM Atrial Rate : 070 BPM P-R Int : 180 ms QRS Dur : 094 ms QT Int : 408 ms P-R-T Axes : 065 -52 078 degrees QTc Int : 440 ms Normal sinus rhythm Possible Left atrial enlargement Left axis deviation Possible Inferior infarct , age undetermined Anterior infarct , age undetermined Abnormal ECG No change from 09/2018 Confirmed by PHUONG SANCHEZ, TIA ([id number]), assignment desk editor MARGAUX MATIAS ([id number]) on 12/17/2018 2:52:41 PM Referred By: PHUONG Confirmed By:TIA BACA MD
== END 2018-12-12 18:45 | disposition home or self-care (01) ==
LOC: ERS 16:55
DX: J44.1 Chronic obstructive pulmonary disease with (acute) exacerbation (principal); I10 Essential (primary) hypertension; I25.10 Atherosclerotic heart disease of native coronary artery without angina pectoris; F41.9 Anxiety disorder, unspecified; F17.220 Nicotine dependence, chewing tobacco, uncomplicated; Z79.82 Long term (current) use of aspirin; Z79.899 Other long term (current) drug therapy
CPT/HCPCS: 36415; 71045; 80053; 82550; 82805; 83690; 83880; 84484; 85025; 93005; 94640; 96361; 96374; J1100; J7611; J7620

== ENCOUNTER 2018-12-17 22:13 | Inpatient (IN) | payer MEDICARE, MEDICAID ==
[2018-12-17 23:01] LABS: #Lymphocytes 0.6 thou/uL (1.20-3.40); #Monocytes 0.5 thou/uL (0.11-0.59); #Neutrophils 8.1 thou/uL (1.40-6.50); %Eosinophils 0.1 % (0.0-10.0); %Lymphocytes 6.5 % (21.0-51.0); %Monocytes 5.7 % (0.0-10.0); %Neutrophils 87.7 % (42.0-75.0); Hemoglobin 14.3 g/dL (14.0-18.0); Mean Corpuscular HGB CONC 30.8 g/dL (32.0-36.0); Mean Corpuscular Hemoglobin 30.1 pg (27.0-31.0); Mean Corpuscular Volume 97.5 fL (78.0-98.0); Mean Platelet Volume 8.1 fL (7.4-10.4); Platelet Count 236 thou/uL (130-400); RBC Distribution Width 13.9 % (11.5-14.5); Red Blood Cell (RBC) Count 4.75 mill/uL (4.70-6.10); White Blood Cell (WBC) Count 9.3 thou/uL (4.8-10.8)
[2018-12-17 23:17] LABS: ALT (SGPT) 20 U/L (8-55); AST (SGOT) 13 U/L (5-34); Albumin 3.8 g/dL (3.4-4.8); Alkaline Phosphatase 79 U/L (40-150); Anion Gap 14 mmol/L (10-20); BUN (Urea Nitrogen) 25 mg/dL (8.4-25.7); Bilirubin, Total 0.4 mg/dL (0.2-1.2); CK (CPK) 48 U/L (30-200); Calc. Creatinine Clearance 0 mL/min (70-130); Calcium 10.6 mg/dL (7.8-10.44); Carbon Dioxide 25 mmol/L (23-31); Chloride 101 mmol/L (98-107); Estimated GFR-MDRD 61; Globulin 3.3 g/dL (2.4-3.5); Glucose 117 mg/dL (80-115); Potassium 4.2 mmol/L (3.5-5.1); Protein, Total 7.1 g/dL (5.8-8.1); Sodium 136 mmol/L (136-145)
--- NOTE | 2018-12-17 23:18 | RAD ---
PORTABLE CHEST: 12/17/18 HISTORY: Shortness of breath. COMPARISON: 12/12/18. Linear density in the right mid lung is unchanged. Lungs appear well aerated and otherwise clear with no change from the 12/12/18 study. Postoperative changes are again noted. IMPRESSION: Stable chest findings when compared to 12/12/18. POS: [facility]
[2018-12-17] MEDS ORDERED: Albuterol Sulfate 2.5 mg/3 ml Neb ONE (23:44)
[2018-12-18 00:12] LABS: Bilirubin Negative (Negative); Blood, Urine Negative (Negative); Clarity CLEAR (Clear); Glucose, Urine (Dipstick) Negative (Negative); Leukocyte Negative (Negative); Nitrite Negative (Negative); Protein, Urine (Dipstick) 30 mg/dL (Neg-Trace); Specific Gravity, Urine 1.021 (1.002-1.036); Urobilinogen 0.2 mg/dL (0.2-1.0); pH, Urine 5.5 (5.0-9.0)
[2018-12-18 00:15] LABS: Bacteria/HPF None Seen HPF (None Seen); Hyaline Casts/LPF 0-3 HYALINE CAST LPF (0-3 Hyaline); Squamous Epithelial None Seen HPF (0-3); WBC/HPF 0-3 HPF (0-3)
[2018-12-18 02:41] VITALS: BMI 18.5
[2018-12-18] MEDS ORDERED: Labetalol HCl 100 MG/20 ML VIAL SLOW IVP PRN (02:50)
[2018-12-18] MEDS ORDERED: hydrALAZINE 20 MG/ML VIAL SLOW IVP PRN (02:50)
[2018-12-18] MEDS ORDERED: Acetaminophen 500 MG TAB PO PRN (02:50)
[2018-12-18] MEDS ORDERED: Ondansetron PF 4 MG/2 ML Vial IVP PRN (02:50)
[2018-12-18] MEDS ORDERED: Benzonatate 100 MG CAP PO PRN (02:50)
[2018-12-18] MEDS ORDERED: Ondansetron ODT 4 MG TAB PO PRN (02:50)
[2018-12-18] MEDS: Sodium Chloride 0.9% 1,000 ML IV SCH ×2 (03:03→20:03)
--- NOTE | 2018-12-18 04:06 | HP ---
PRIMARY CARE PROVIDER: Cristiano Philip MD CHIEF COMPLAINT: Shortness of breath. HISTORY OF PRESENT ILLNESS: This is a 68-year-old male with a 50+ pack-year smoking history with increasing shortness of breath over the last week. The patient states he was cleaning out a garage in a [place] environment approximately 1 week prior to this evaluation, which he feels triggered his symptoms. The patient apparently related that he stopped smoking approximately 18 months prior to this evaluation after 50 pack-year history. The patient apparently was seen in the [facility] and placed on doxycycline and prednisone. The patient continued to use bronchodilator therapy at home as well as his metered-dose inhalers to include Symbicort. The patient complained of worsening cough, shortness of breath, and productive sputum. The patient was notably admitted to [facility] in September 2018, presenting with suspected pneumonia and sepsis with COPD exacerbation. In the emergency room, the patient underwent general evaluation including chest imaging showing no acute infiltrates. The patient was treated with bronchodilator therapy with DuoNebs and albuterol sulfate as well as oxygen supplementation. The patient was transferred to the medical floor for further evaluation. PAST MEDICAL HISTORY: 1. Chronic obstructive pulmonary disease. 2. Tobacco abuse. 3. Coronary artery disease. 4. Hypertension. PAST SURGICAL HISTORY: 1. Status post coronary artery bypass grafting x2 vessels. 2. Status post left knee surgery. 3. Status post aortic repair after aortic dissection. CURRENT MEDICATIONS: 1. Proventil HFA 2 puffs inhaled b.i.d. p.r.n. 2. Amiodarone 100 mg p.o. b.i.d. 3. Norvasc 10 mg p.o. daily. 4. Lipitor 20 mg p.o. at bedtime. 5. Symbicort 160/4.5 mcg 2 puffs inhaled b.i.d.. 6. Clonidine 0.1 mg p.o. t.i.d.. 7. Vitamin B12 500 mcg sublingually daily. 8. Doxycycline 100 mg p.o. b.i.d.. 9. Guaifenesin extended release 600 mg p.o. daily. 10. DuoNeb 3 mL nebulized q.i.d. p.r.n. 11. Lisinopril 20 mg p.o. daily. 12. Metoprolol tartrate 50 mg p.o. daily. ALLERGIES: PENICILLIN AND DILTIAZEM. FAMILY HISTORY: Positive for coronary artery disease. SOCIAL HISTORY: The patient resides in the [place], [place] area. 50+ pack-year history of smoking. Smokeless tobacco use. No alcohol or illicit drug use. REVIEW OF SYSTEMS: CONSTITUTIONAL: Negative for weight loss or gain, ability to conduct usual activities. SKIN: Negative for rash, itching. EYES: Negative for double vision, pain. ENT/MOUTH: Negative for nose bleeding, neck stiffness, pain, tenderness. CARDIOVASCULAR: Negative for palpitations, dyspnea on exertion, orthopnea. RESPIRATORY: Negative for shortness of breath, wheezing, cough, hemoptysis, fever or night sweats. GASTROINTESTINAL: Negative for poor appetite, abdominal pain, heartburn, nausea, vomiting, constipation, or diarrhea. GENITOURINARY: Negative for urgency, frequency, dysuria, nocturia. MUSCULOSKELETAL: Negative for pain, swelling. NEUROLOGIC/PSYCHIATRIC: Negative for anxiety, depression. ALLERGY/IMMUNOLOGIC: Negative for skin rash, bleeding tendency. Otherwise, negative except as stated per HPI. PHYSICAL EXAMINATION: VITAL SIGNS: On admission; blood pressure 178/85, pulse 77, respiratory rate 20, temperature 97.6 degrees Fahrenheit, O2 saturation 96% on 2 L/min by nasal cannula. GENERAL APPEARANCE: This is a 68-year-old male, alert and oriented x3, pleasant, in no acute distress. HEENT: Pupils are equal, round, and reactive to light and accommodation. Extraocular muscles are intact. No scleral icterus. No conjunctival injection. Nares patent. OP is clear. Teeth in fair repair. NECK: Supple. No cervical adenopathy. No thyromegaly. No carotid bruits. No JVD appreciated. Cervical spine with full active and passive range of motion. No meningeal signs noted. CHEST: Diminished breath sounds bilaterally with coarse rhonchi and expiratory wheezing bilaterally. CARDIOVASCULAR: S1 and S2 without noted murmur, rub, or gallop. Distant heart sounds. ABDOMEN: Flat, soft, nontender, and nondistended. Bowel sounds are positive in all 4 quadrants. There is no hepatosplenomegaly. No abdominal bruits. No rebound or guarding appreciated. EXTREMITIES: Warm and dry with fair turgor. No clubbing, cyanosis, or asymmetric edema appreciated. Pulses are palpable distally at the dorsalis pedis, posterior tibial, and popliteal arteries bilaterally. Capillary refill less than 2 seconds. NEUROLOGIC: Cranial nerves II through XII are grossly intact. No focal or lateralizing signs appreciated. PERTINENT LAB AND X-RAY FINDINGS: Sodium 136, potassium 4.2, chloride 101, CO2 of 25, BUN 25, creatinine 1.40, estimated GFR 61, glucose 117, lactic acid level 2.0, calcium 10.6. LFTs within normal limits. BNP 242, previously noted 269 on 12/12/2018. CBC showed white blood cell count of 9.3, hemoglobin 14, hematocrit 46, and platelet count 236 with 88% neutrophils. Portable chest x-ray dated 12/17/2018, showed chronic changes in bilateral lung messina without acute process. EKG dated 12/17/2018, by my interpretation, shows sinus mechanism with heart rates in the 80s, attenuated R-waves noted in the precordial leads, normal axis, left atrial enlargement noted. ASSESSMENT AND PLAN: 1. Acute hypoxic respiratory failure secondary to #2. Continue oxygen supplementation to maintain O2 saturations greater than or equal to 90%. See #2 below for management. 2. Acute chronic obstructive pulmonary disease exacerbation. The patient will be admitted to the medical floor. We will continue Solu-Medrol 40 mg IV q.6 hours, Levaquin 750 mg daily, DuoNeb q.4 hours with additional Dulera 2 puffs inhaled b.i.d. Add Spiriva HandiHaler 18 mcg daily. Continue oxygen supplementation, titrating to maintain O2 saturations greater than or equal to 90%. 3. Acute kidney injury. Avoid nephrotoxic agents and limit contrast exposure. Intravenous normal saline at 50 mL/h. Repeat creatinine in the a.m. 4. Hypertension, labile currently. Resume home antihypertensive regimen except for holding lisinopril due to acute kidney injury. p.r.n. hydralazine and labetalol. 5. Tobacco abuse. We will offer smoking cessation resources prior to discharge. 6. Prophylaxis. Sequential compression devices while in bed. Pepcid 20 mg p.o. b.i.d. CODE STATUS: Full. Surrogate medical decision maker is the patient's sister. Job ID: [id number]
[2018-12-18] MEDS: methylPREDNISolone Sod Succ 40 MG VIAL IVP SCH ×3 (05:22→17:11)
[2018-12-18 06:22] LABS: Band 4 % (5-11); Hemoglobin 12.7 g/dL (14.0-18.0); Lymphocytes 1 % (21-51); MDiff Complete? YES; Mean Corpuscular Hemoglobin 30.3 pg (27.0-31.0); Mean Corpuscular Volume 97.6 fL (78.0-98.0); Mean Platelet Volume 8.6 fL (7.4-10.4); Neutrophil 95 % (42-75); Platelet Count 209 thou/uL (130-400); Platelet Morphology Comment Appears Adequate; RBC Distribution Width 13.9 % (11.5-14.5); RBC Morphology Normal; Red Blood Cell (RBC) Count 4.18 mill/uL (4.70-6.10)
[2018-12-18 06:23] LABS: Anion Gap 14 mmol/L (10-20); BUN (Urea Nitrogen) 25 mg/dL (8.4-25.7); Calc. Creatinine Clearance 63 mL/min (70-130); Carbon Dioxide 25 mmol/L (23-31); Chloride 102 mmol/L (98-107); Estimated GFR-MDRD 79; Glucose 161 mg/dL (80-115); Potassium 4.2 mmol/L (3.5-5.1); Sodium 137 mmol/L (136-145)
[2018-12-18] MEDS: Mometasone/Formoterol 120 PUFF INHALER INH SCH ×2 (06:30→18:22)
[2018-12-18] MEDS ORDERED: Spiriva 18 MCG CAP (Box of 5 Caps) INH SCH (07:00)
[2018-12-18] MEDS: Metoprolol Tartrate 50 MG TAB PO SCH (08:06)
[2018-12-18] MEDS: Cyanocobalamin (Vitamin B-12) 1,000 MCG TAB PO SCH (08:06)
[2018-12-18] MEDS: Amiodarone 200 MG TAB PO SCH ×2 (08:07→20:01)
[2018-12-18] MEDS: Amlodipine 10 MG TAB PO SCH (08:07)
[2018-12-18] MEDS: Famotidine 20 MG TAB PO SCH ×2 (08:07→20:01)
[2018-12-18] MEDS: guaiFENesin ER 600 MG TAB PO SCH ×2 (08:07→20:01)
[2018-12-18] MEDS: cloNIDine 0.1 MG TAB PO SCH ×3 (08:08→20:00)
[2018-12-18] MEDS ORDERED: Diabetic Tussin 200 MG/10 ML UDCUP PO PRN (08:21)
[2018-12-18] MEDS ORDERED: Loperamide HCl 2 MG CAP PO PRN (08:21)
[2018-12-18] MEDS ORDERED: Bisacodyl 10 MG SUPP PR PRN (08:21)
[2018-12-18] MEDS ORDERED: Zolpidem Tartrate 5 MG TAB PO PRN (08:21)
[2018-12-18] MEDS ORDERED: Senokot S 8.6-50 MG TAB PO PRN (08:21)
[2018-12-18] MEDS ORDERED: Sodium Chloride 0.65% Nasal 44 ML BOT EA NARE PRN (08:21)
[2018-12-18] MEDS ORDERED: HYDROcodone/Acetaminophen 5/325 mg Tablet PO PRN (08:21)
[2018-12-18] MEDS ORDERED: Cepastat Lozenges 1 LOZ PO PRN (08:21)
[2018-12-18] MEDS ORDERED: Loratadine 10 MG TAB PO PRN (08:21)
[2018-12-18] MEDS ORDERED: Calcium Carbonate 500 MG ChewTAB PO PRN (08:21)
--- NOTE | 2018-12-18 11:50 | PDOC.PN ---
- Subjective Encounter Start Date: 12/18/18 Encounter Start Time: 09:45 -: old records requested/rev Patient seen and examined. No new complaints. No overnight events - Objective Resuscitation Status - Order Detail: 12/18/18 02:44 Resuscitation Status Routine Resuscitation Status: FULL: Full Resuscitation MAR Reviewed: Yes Vital Signs & Weight: Vital Signs (12 hours) Temp Pulse Resp BP BP Pulse Ox 12/18/18 10:57 97.8 F 68 20 176/83 H 97 12/18/18 10:21 76 14 12/18/18 09:32 181/82 H 12/18/18 08:11 95 12/18/18 08:08 185/90 H 12/18/18 08:07 76 185/90 H 12/18/18 07:54 98.0 F 76 18 185/90 H 95 12/18/18 06:31 80 14 12/18/18 05:15 172/82 H 12/18/18 02:47 97.6 F 77 20 178/85 H 96 12/18/18 02:30 96 Weight Weight 156 lb 1 oz I&O: 12/17/18 12/18/18 12/19/18 06:59 06:59 06:59 Intake Total 166 Output Total 425 Balance -259 Result Diagrams: 12/18/18 05:21 12/18/18 05:21 Radiology Reviewed by me: Yes Phys Exam - Physical Examination Constitutional: NAD HEENT: PERRLA, moist MMs, sclera anicteric Neck: no JVD, supple Respiratory: no rales, wheezing present Cardiovascular: RRR, no significant murmur, no rub Gastrointestinal: soft, non-tender, no distention, positive bowel sounds Musculoskeletal: no edema, pulses present Neurological: non-focal, normal sensation, moves all 4 limbs Lymphatic: no nodes Psychiatric: normal affect, A&O x 3 Skin: no rash, normal turgor Dx/Plan (1) Acute kidney injury Code(s): N17.9 - ACUTE KIDNEY FAILURE, UNSPECIFIED Status: Acute (2) Acute respiratory failure with hypoxia Code(s): J96.01 - ACUTE RESPIRATORY FAILURE WITH HYPOXIA Status: Acute (3) COPD exacerbation Code(s): J44.1 - CHRONIC OBSTRUCTIVE PULMONARY DISEASE W (ACUTE) EXACERBATION Status: Acute (4) Dyslipidemia Code(s): E78.5 - HYPERLIPIDEMIA, UNSPECIFIED Status: Chronic (5) Hypertension Code(s): I10 - ESSENTIAL (PRIMARY) HYPERTENSION Status: Chronic (6) PAF (paroxysmal atrial fibrillation) Code(s): I48.0 - PAROXYSMAL ATRIAL FIBRILLATION Status: Chronic (7) Tobacco abuse Code(s): Z72.0 - TOBACCO USE Status: Chronic - Plan cont current plan of care, continue antibiotics, respiratory therapy * continue solumedrol, po levaquin, duoneb and dulera * medication reviewed as below * symptomatic treatment * will wean off oxygen as tolerated. Review of Systems - Review of Systems Constitutional: negative: fever, chills, sweats, weakness, malaise, other Eyes: negative: Pain, Vision Change, Conjunctivae Inflammation, Eyelid Inflammation, Redness, Other ENT: negative: Ear Pain, Ear Discharge, Nose Pain, Nose Discharge, Nose Congestion, Mouth Pain, Mouth Swelling, Throat Pain, Throat Swelling, Other Respiratory: Cough, Shortness of Breath, Wheezing. negative: Dry, Hemoptysis, SOB with Excertion, Pleuritic Pain, Sputum Cardiovascular: negative: chest pain, palpitations, orthopnea, paroxysmal nocturnal dyspnea, edema, light headedness, other Gastrointestinal: negative: Nausea, Vomiting, Abdominal Pain, Diarrhea, Constipation, Melena, Hematochezia, Other Genitourinary: negative: Dysuria, Frequency, Incontinence, Hematuria, Retention , Other Musculoskeletal: negative: Neck Pain, Shoulder Pain, Arm Pain, Back Pain, Hand Pain, Leg Pain, Foot Pain, Other Skin: negative: Rash, Lesions, Aden, Bruising, Other - Medications/Allergies Allergies/Adverse Reactions: Allergies Allergy/AdvReac Type Severity Reaction Status Date / Time diltiazem HCl [From Cardizem] Allergy Severe Hives Verified 12/12/18 10:17 Penicillins Allergy Hives Verified 12/12/18 10:17 Medications: Current Medications Acetaminophen (Tylenol) 1,000 mg PO Q6H PRN PRN Reason: Mild Pain (1-3) Hydrocodone Bitart/Acetaminophen ([place] 5/325) 1 tab PO Q4H PRN PRN Reason: Moderate Pain (4-6) Albuterol/Ipratropium (Duoneb) 3 ml NEB [id number] Last Admin: 12/18/18 10:21 Dose: 3 ml Amiodarone HCl (Cordarone) 100 mg PO BID [facility] Last Admin: 12/18/18 08:07 Dose: 100 mg Amlodipine Besylate (Norvasc) 10 mg PO DAILY [facility] Last Admin: 12/18/18 08:07 Dose: 10 mg Atorvastatin Calcium (Lipitor) 20 mg PO HS [facility] Benzonatate (Tessalon) 100 mg PO Q6H PRN PRN Reason: Cough Bisacodyl (Dulcolax) 10 mg [place] DAILYPRN PRN PRN Reason: Constipation Calcium Carbonate (Tums) 1,000 mg PO Q4H PRN PRN Reason: Heartburn or Indigestion Clonidine (Catapres) 0.1 mg PO TID [facility] Last Admin: 12/18/18 08:08 Dose: 0.1 mg Cyanocobalamin (Vitamin B-12) 500 mcg PO DAILY [facility] Last Admin: 12/18/18 08:06 Dose: 500 mcg Famotidine (Pepcid) 20 mg PO BID [facility] Last Admin: 12/18/18 08:07 Dose: 20 mg Guaifenesin (Mucinex) 600 mg PO BID [facility] Last Admin: 12/18/18 08:07 Dose: 600 mg Guaifenesin (Robitussin Sf) 200 mg PO Q4H PRN PRN Reason: Cough Hydralazine HCl (Apresoline) 10 mg SLOW IVP Q4H PRN PRN Reason: SBP > 180 and HR < 70 Sodium Chloride (Normal Saline 0.9%) 1,000 mls @ 50 mls/hr IV .Q20H [facility] Last Admin: 12/18/18 03:03 Dose: 1,000 mls Labetalol HCl (Normodyne) 20 mg SLOW IVP Q4H PRN PRN Reason: SBP > 180 and HR >/= 70 Levofloxacin (Levaquin) 750 mg PO 0600 [facility] Last Admin: 12/18/18 05:22 Dose: 750 mg Loperamide HCl (Imodium) 2 mg PO PRN PRN PRN Reason: Diarrhea/Loose Stools Loratadine (Claritin) 10 mg PO DAILYPRN PRN PRN Reason: Sinus Symptoms Methylprednisolone Sodium Succinate (Solu-Medrol) 40 mg IVP Q6HR [facility] Last Admin: 12/18/18 11:35 Dose: 40 mg Metoprolol Tartrate (Lopressor) 50 mg PO DAILY [facility] Last Admin: 12/18/18 08:06 Dose: 50 mg Mometasone Furoate/Formoterol Fumar (Dulera 200 Mcg/5 Mcg Inhaler) 2 puff INH BID-RT [facility] Last Admin: 12/18/18 06:30 Dose: 2 puff Ondansetron HCl (Zofran Odt) 4 mg PO Q6H PRN PRN Reason: Nausea/Vomiting Ondansetron HCl (Zofran) 4 mg IVP Q6H PRN PRN Reason: Nausea/Vomiting Senna/Docusate Sodium (Senokot S) 2 tab PO BID PRN PRN Reason: Constipation Sodium Chloride ([place] Nasal [place] 0.65%) 0 ml EA NARE QIDPRN PRN PRN Reason: Nasal Congestion Throat Lozenges (Cepastat Lozenges) 1 disha PO Q2H PRN PRN Reason: Sore Throat Zolpidem Tartrate (Ambien) 5 mg PO HSPRN PRN PRN Reason: Insomnia
[2018-12-18] MEDS: Atorvastatin Calcium 20 MG TAB PO SCH (20:01)
[2018-12-19] MEDS: methylPREDNISolone Sod Succ 40 MG VIAL IVP SCH ×3 (00:01→12:03)
[2018-12-19] MEDS: Mometasone/Formoterol 120 PUFF INHALER INH SCH ×2 (07:42→18:32)
[2018-12-19] MEDS: Metoprolol Tartrate 50 MG TAB PO SCH (09:12)
[2018-12-19] MEDS: Famotidine 20 MG TAB PO SCH ×2 (09:12→20:41)
[2018-12-19] MEDS: guaiFENesin ER 600 MG TAB PO SCH ×2 (09:12→20:41)
[2018-12-19] MEDS: Amlodipine 10 MG TAB PO SCH (09:12)
[2018-12-19] MEDS: Cyanocobalamin (Vitamin B-12) 1,000 MCG TAB PO SCH (09:13)
[2018-12-19] MEDS: Amiodarone 200 MG TAB PO SCH ×2 (09:13→20:41)
[2018-12-19] MEDS: cloNIDine 0.1 MG TAB PO SCH ×3 (09:13→20:41)
--- NOTE | 2018-12-19 12:00 | PDOC.PN ---
- Subjective Encounter Start Date: 12/19/18 Encounter Start Time: 09:30 Patient seen and examined. No new complaints. No overnight events - Objective Resuscitation Status - Order Detail: 12/18/18 02:44 Resuscitation Status Routine Resuscitation Status: FULL: Full Resuscitation MAR Reviewed: Yes Vital Signs & Weight: Vital Signs (12 hours) Temp Pulse Resp BP BP Pulse Ox 12/19/18 10:19 69 16 97 12/19/18 09:13 163/86 H 12/19/18 09:12 70 163/86 H 12/19/18 08:00 97 12/19/18 07:45 97 12/19/18 07:44 97.7 F 70 18 163/86 H 97 12/19/18 07:43 70 16 97 12/19/18 05:18 179/89 H 12/19/18 02:19 95 12/19/18 02:17 69 12 Weight Weight 156 lb 1 oz I&O: 12/18/18 12/19/18 12/20/18 06:59 06:59 06:59 Intake Total 166 1600 Output Total 425 1070 Balance -259 530 Result Diagrams: 12/18/18 05:21 12/18/18 05:21 Phys Exam - Physical Examination Constitutional: NAD HEENT: PERRLA, moist MMs, sclera anicteric Neck: no JVD, supple Respiratory: no rales occasional wheezing Cardiovascular: RRR, no significant murmur, no rub Gastrointestinal: soft, non-tender, no distention, positive bowel sounds Musculoskeletal: no edema, pulses present Neurological: non-focal, normal sensation, moves all 4 limbs Lymphatic: no nodes Psychiatric: normal affect, A&O x 3 Skin: no rash, normal turgor Dx/Plan (1) Acute kidney injury Code(s): N17.9 - ACUTE KIDNEY FAILURE, UNSPECIFIED Status: Acute (2) Acute respiratory failure with hypoxia Code(s): J96.01 - ACUTE RESPIRATORY FAILURE WITH HYPOXIA Status: Acute (3) COPD exacerbation Code(s): J44.1 - CHRONIC OBSTRUCTIVE PULMONARY DISEASE W (ACUTE) EXACERBATION Status: Acute (4) Dyslipidemia Code(s): E78.5 - HYPERLIPIDEMIA, UNSPECIFIED Status: Chronic (5) Hypertension Code(s): I10 - ESSENTIAL (PRIMARY) HYPERTENSION Status: Chronic (6) PAF (paroxysmal atrial fibrillation) Code(s): I48.0 - PAROXYSMAL ATRIAL FIBRILLATION Status: Chronic (7) Tobacco abuse Code(s): Z72.0 - TOBACCO USE Status: Chronic - Plan cont current plan of care, continue antibiotics, respiratory therapy * pulmonary consulted per family request * medication reviewed as below * symptomatic treatment * continue solumedrol, levaquin and duoneb therapy * expecting discharge soon. Review of Systems - Review of Systems ENT: negative: Ear Pain, Ear Discharge, Nose Pain, Nose Discharge, Nose Congestion, Mouth Pain, Mouth Swelling, Throat Pain, Throat Swelling, Other Respiratory: Cough, Shortness of Breath. negative: Dry, Hemoptysis, SOB with Excertion, Pleuritic Pain, Sputum, Wheezing Cardiovascular: negative: chest pain, palpitations, orthopnea, paroxysmal nocturnal dyspnea, edema, light headedness, other Gastrointestinal: negative: Nausea, Vomiting, Abdominal Pain, Diarrhea, Constipation, Melena, Hematochezia, Other Genitourinary: negative: Dysuria, Frequency, Incontinence, Hematuria, Retention , Other Musculoskeletal: negative: Neck Pain, Shoulder Pain, Arm Pain, Back Pain, Hand Pain, Leg Pain, Foot Pain, Other Skin: negative: Rash, Lesions, Aden, Bruising, Other - Medications/Allergies Allergies/Adverse Reactions: Allergies Allergy/AdvReac Type Severity Reaction Status Date / Time diltiazem HCl [From Cardizem] Allergy Severe Hives Verified 12/12/18 10:17 Penicillins Allergy Hives Verified 12/12/18 10:17 Medications: Current Medications Acetaminophen (Tylenol) 1,000 mg PO Q6H PRN PRN Reason: Mild Pain (1-3) Hydrocodone Bitart/Acetaminophen ([place] 5/325) 1 tab PO Q4H PRN PRN Reason: Moderate Pain (4-6) Last Admin: 12/18/18 14:55 Dose: 1 tab Albuterol/Ipratropium (Duoneb) 3 ml NEB [id number] [facility] Last Admin: 12/19/18 10:19 Dose: 3 ml Amiodarone HCl (Cordarone) 100 mg PO BID [facility] Last Admin: 12/19/18 09:13 Dose: 100 mg Amlodipine Besylate (Norvasc) 10 mg PO DAILY [facility] Last Admin: 12/19/18 09:12 Dose: 10 mg Atorvastatin Calcium (Lipitor) 20 mg PO HS [facility] Last Admin: 12/18/18 20:01 Dose: 20 mg Benzonatate (Tessalon) 100 mg PO Q6H PRN PRN Reason: Cough Bisacodyl (Dulcolax) 10 mg [place] DAILYPRN PRN PRN Reason: Constipation Calcium Carbonate (Tums) 1,000 mg PO Q4H PRN PRN Reason: Heartburn or Indigestion Clonidine (Catapres) 0.1 mg PO TID [facility] Last Admin: 12/19/18 09:13 Dose: 0.1 mg Cyanocobalamin (Vitamin B-12) 500 mcg PO DAILY [facility] Last Admin: 12/19/18 09:13 Dose: 500 mcg Famotidine (Pepcid) 20 mg PO BID [facility] Last Admin: 12/19/18 09:12 Dose: 20 mg Guaifenesin (Mucinex) 600 mg PO BID [facility] Last Admin: 12/19/18 09:12 Dose: 600 mg Guaifenesin (Robitussin Sf) 200 mg PO Q4H PRN PRN Reason: Cough Hydralazine HCl (Apresoline) 10 mg SLOW IVP Q4H PRN PRN Reason: SBP > 180 and HR < 70 Last Admin: 12/18/18 20:31 Dose: 10 mg Labetalol HCl (Normodyne) 20 mg SLOW IVP Q4H PRN PRN Reason: SBP > 180 and HR >/= 70 Levofloxacin (Levaquin) 750 mg PO 0600 [facility] Last Admin: 12/19/18 05:07 Dose: 750 mg Loperamide HCl (Imodium) 2 mg PO PRN PRN PRN Reason: Diarrhea/Loose Stools Loratadine (Claritin) 10 mg PO DAILYPRN PRN PRN Reason: Sinus Symptoms Methylprednisolone Sodium Succinate (Solu-Medrol) 40 mg IVP Q6HR [facility] Last Admin: 12/19/18 05:07 Dose: 40 mg Metoprolol Tartrate (Lopressor) 50 mg PO DAILY [facility] Last Admin: 12/19/18 09:12 Dose: 50 mg Mometasone Furoate/Formoterol Fumar (Dulera 200 Mcg/5 Mcg Inhaler) 2 puff INH BID-RT [facility] Last Admin: 12/19/18 07:42 Dose: 2 puff Ondansetron HCl (Zofran Odt) 4 mg PO Q6H PRN PRN Reason: Nausea/Vomiting Ondansetron HCl (Zofran) 4 mg IVP Q6H PRN PRN Reason: Nausea/Vomiting Senna/Docusate Sodium (Senokot S) 2 tab PO BID PRN PRN Reason: Constipation Sodium Chloride ([place] Nasal [place] 0.65%) 0 ml EA NARE QIDPRN PRN PRN Reason: Nasal Congestion Throat Lozenges (Cepastat Lozenges) 1 disha PO Q2H PRN PRN Reason: Sore Throat Zolpidem Tartrate (Ambien) 5 mg PO HSPRN PRN PRN Reason: Insomnia
[2018-12-19] MEDS: Atorvastatin Calcium 20 MG TAB PO SCH (20:41)
[2018-12-20] MEDS: Cyanocobalamin (Vitamin B-12) 1,000 MCG TAB PO SCH (08:12)
[2018-12-20] MEDS: Famotidine 20 MG TAB PO SCH ×2 (08:12→19:50)
[2018-12-20] MEDS: Amlodipine 10 MG TAB PO SCH (08:12)
[2018-12-20] MEDS: Amiodarone 200 MG TAB PO SCH ×2 (08:12→19:50)
[2018-12-20] MEDS: Metoprolol Tartrate 50 MG TAB PO SCH (08:13)
[2018-12-20] MEDS: predniSONE 20 MG TAB PO SCH (08:13)
[2018-12-20] MEDS: Mometasone/Formoterol 120 PUFF INHALER INH SCH ×2 (08:13→18:01)
[2018-12-20] MEDS: cloNIDine 0.1 MG TAB PO SCH ×3 (08:13→19:50)
[2018-12-20] MEDS: guaiFENesin ER 600 MG TAB PO SCH ×2 (08:13→19:51)
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
--- NOTE | 2018-12-20 10:36 | PDOC.PN ---
- Subjective Encounter Start Date: 12/20/18 Encounter Start Time: 09:45 Patient seen and examined. No new complaints. No overnight events - Objective Resuscitation Status - Order Detail: 12/18/18 02:44 Resuscitation Status Routine Resuscitation Status: FULL: Full Resuscitation MAR Reviewed: Yes Vital Signs & Weight: Vital Signs (12 hours) Temp Pulse Resp BP BP Pulse Ox 12/20/18 08:15 82 16 98 12/20/18 08:13 82 16 163/92 H 98 12/20/18 08:12 69 163/92 H 12/20/18 08:00 95 12/20/18 07:44 97.9 F 69 20 163/92 H 95 12/19/18 23:59 69 16 95 Weight Admit Weight 156 lb 1 oz Weight 156 lb 1 oz I&O: 12/19/18 12/20/18 12/21/18 06:59 06:59 06:59 Intake Total 1600 Output Total 1070 Balance 530 Result Diagrams: 12/18/18 05:21 12/18/18 05:21 Phys Exam - Physical Examination Constitutional: NAD HEENT: PERRLA, moist MMs, sclera anicteric Neck: no JVD, supple Respiratory: no wheezing, no rales, no rhonchi Cardiovascular: RRR, no significant murmur, no rub Gastrointestinal: soft, non-tender, no distention, positive bowel sounds Musculoskeletal: no edema, pulses present Neurological: non-focal, normal sensation, moves all 4 limbs Lymphatic: no nodes Psychiatric: normal affect, A&O x 3 Skin: no rash, normal turgor Dx/Plan (1) Acute kidney injury Code(s): N17.9 - ACUTE KIDNEY FAILURE, UNSPECIFIED Status: Acute (2) Acute respiratory failure with hypoxia Code(s): J96.01 - ACUTE RESPIRATORY FAILURE WITH HYPOXIA Status: Acute (3) COPD exacerbation Code(s): J44.1 - CHRONIC OBSTRUCTIVE PULMONARY DISEASE W (ACUTE) EXACERBATION Status: Acute (4) Dyslipidemia Code(s): E78.5 - HYPERLIPIDEMIA, UNSPECIFIED Status: Chronic (5) Hypertension Code(s): I10 - ESSENTIAL (PRIMARY) HYPERTENSION Status: Chronic (6) PAF (paroxysmal atrial fibrillation) Code(s): I48.0 - PAROXYSMAL ATRIAL FIBRILLATION Status: Chronic (7) Tobacco abuse Code(s): Z72.0 - TOBACCO USE Status: Chronic - Plan cont current plan of care, plan discussed w/ family, continue antibiotics, respiratory therapy * pt still does not want to go for biopsy as recommended by pulmonary * medication reviewed as below * symptomatic treatment * will discharge tomorrow per pt and family request. Review of Systems - Review of Systems ENT: negative: Ear Pain, Ear Discharge, Nose Pain, Nose Discharge, Nose Congestion, Mouth Pain, Mouth Swelling, Throat Pain, Throat Swelling, Other Respiratory: negative: Cough, Dry, Shortness of Breath, Hemoptysis, SOB with Excertion, Pleuritic Pain, Sputum, Wheezing Cardiovascular: negative: chest pain, palpitations, orthopnea, paroxysmal nocturnal dyspnea, edema, light headedness, other Gastrointestinal: negative: Nausea, Vomiting, Abdominal Pain, Diarrhea, Constipation, Melena, Hematochezia, Other Genitourinary: negative: Dysuria, Frequency, Incontinence, Hematuria, Retention , Other Musculoskeletal: negative: Neck Pain, Shoulder Pain, Arm Pain, Back Pain, Hand Pain, Leg Pain, Foot Pain, Other - Medications/Allergies Allergies/Adverse Reactions: Allergies Allergy/AdvReac Type Severity Reaction Status Date / Time diltiazem HCl [From Cardizem] Allergy Severe Hives Verified 12/12/18 10:17 Penicillins Allergy Hives Verified 12/12/18 10:17 Medications: Current Medications Acetaminophen (Tylenol) 1,000 mg PO Q6H PRN PRN Reason: Mild Pain (1-3) Hydrocodone Bitart/Acetaminophen ([place] 5/325) 1 tab PO Q4H PRN PRN Reason: Moderate Pain (4-6) Last Admin: 12/18/18 14:55 Dose: 1 tab Albuterol/Ipratropium (Duoneb) 3 ml NEB [id number] [facility] Last Admin: 12/20/18 08:15 Dose: 3 ml Amiodarone HCl (Cordarone) 100 mg PO BID [facility] Last Admin: 12/20/18 08:12 Dose: 100 mg Amlodipine Besylate (Norvasc) 10 mg PO DAILY [facility] Last Admin: 12/20/18 08:12 Dose: 10 mg Atorvastatin Calcium (Lipitor) 20 mg PO HS [facility] Last Admin: 12/19/18 20:41 Dose: 20 mg Benzonatate (Tessalon) 100 mg PO Q6H PRN PRN Reason: Cough Bisacodyl (Dulcolax) 10 mg [place] DAILYPRN PRN PRN Reason: Constipation Calcium Carbonate (Tums) 1,000 mg PO Q4H PRN PRN Reason: Heartburn or Indigestion Clonidine (Catapres) 0.1 mg PO TID [facility] Last Admin: 12/20/18 08:13 Dose: 0.1 mg Cyanocobalamin (Vitamin B-12) 500 mcg PO DAILY [facility] Last Admin: 12/20/18 08:12 Dose: 500 mcg Famotidine (Pepcid) 20 mg PO BID [facility] Last Admin: 12/20/18 08:12 Dose: 20 mg Guaifenesin (Mucinex) 600 mg PO BID [facility] Last Admin: 12/20/18 08:13 Dose: 600 mg Guaifenesin (Robitussin Sf) 200 mg PO Q4H PRN PRN Reason: Cough Hydralazine HCl (Apresoline) 10 mg SLOW IVP Q4H PRN PRN Reason: SBP > 180 and HR < 70 Last Admin: 12/18/18 20:31 Dose: 10 mg Labetalol HCl (Normodyne) 20 mg SLOW IVP Q4H PRN PRN Reason: SBP > 180 and HR >/= 70 Levofloxacin (Levaquin) 750 mg PO 0600 [facility] Last Admin: 12/20/18 05:11 Dose: 750 mg Loperamide HCl (Imodium) 2 mg PO PRN PRN PRN Reason: Diarrhea/Loose Stools Loratadine (Claritin) 10 mg PO DAILYPRN PRN PRN Reason: Sinus Symptoms Metoprolol Tartrate (Lopressor) 50 mg PO DAILY [facility] Last Admin: 12/20/18 08:13 Dose: 50 mg Mometasone Furoate/Formoterol Fumar (Dulera 200 Mcg/5 Mcg Inhaler) 2 puff INH BID-RT [facility] Last Admin: 12/20/18 08:13 Dose: 2 puff Ondansetron HCl (Zofran Odt) 4 mg PO Q6H PRN PRN Reason: Nausea/Vomiting Ondansetron HCl (Zofran) 4 mg IVP Q6H PRN PRN Reason: Nausea/Vomiting Prednisone (Prednisone) 40 mg PO [facility] Stop: 12/24/18 08:01 Last Admin: 12/20/18 08:13 Dose: 40 mg Senna/Docusate Sodium (Senokot S) 2 tab PO BID PRN PRN Reason: Constipation Last Admin: 12/19/18 12:03 Dose: 2 tab Sodium Chloride ([place] Nasal [place] 0.65%) 0 ml EA NARE QIDPRN PRN PRN Reason: Nasal Congestion Throat Lozenges (Cepastat Lozenges) 1 disha PO Q2H PRN PRN Reason: Sore Throat Zolpidem Tartrate (Ambien) 5 mg PO HSPRN PRN PRN Reason: Insomnia
--- NOTE | 2018-12-20 11:05 | PRG ---
DATE OF SERVICE: 12/20/2018 SERVICE: Pulmonary Medicine. INTERVAL HISTORY: The patient is doing fine from respiratory standpoint. If anything, he is much improved. He is still a little productive. That being said, it is changing from a bright yellow color to a pale yellow color. He denies any current fevers, chills, nausea, or vomiting. He slept beautifully last night. He is not having any hemoptysis. Otherwise, he is returning to his usual state of health. He feels good enough to get out of here today. Once again, I discussed with him at length the need for us to pursue an invasive diagnostic study in order to identify what the underlying process in his chest is. He understands that he has a PET positive lesion in his lung and that our bronchoscopy was nondiagnostic. He understands that this could represent cancer. He has assured me that within the next 2 to 3 weeks, he is going to get this biopsy performed. I tried to convince him once again to stay until Wednesday, so that we can safely pursue a biopsy off the aspirin. That being said, he is refusing suggesting that he is going to set this up in the outpatient setting. His acute medical issues are truthfully coming to a close. As such, he is requesting discharge today, which I think is reasonable. PHYSICAL EXAMINATION: VITAL SIGNS: Afebrile, blood pressure 163/92, respirations 16, saturations 98% on room air. GENERAL: The patient is awake and alert, in no apparent distress. LUNGS: Decent air entry. There is no prolonged expiratory phase today. I do not appreciate any crackling or wheezing today. HEART: Normal rate, regular. ABDOMEN: Soft, nontender, nondistended. Bowel sounds are positive. MUSCULOSKELETAL: No cyanosis or clubbing. There is no pitting in the bilateral lower extremities. NEUROLOGIC: Grossly nonfocal. ASSESSMENT: 1. Acute hypoxic respiratory failure, resolved. 2. Chronic obstructive pulmonary disease with acute exacerbation, suspected. 3. PET positive pulmonary nodule, status post nondiagnostic bronchoscopy. DISCUSSION AND PLAN: The patient understands that he has a PET positive lesion in the lung that could represent cancer and that he needs to undergo a transcutaneous biopsy of this lesion to further characterize it. I have asked the patient to stay on multiple occasions so that we can get this tackled while he remains in-house, but he is declining. He indicates that his shortness of breath has resolved, and he would like to be transitioned home today. As such, we will go ahead and make that happen. That being said, I have requested that within the next 1 to 3 weeks that he gets this transcutaneous biopsy. He assures me that he will and as soon as it is done, hopefully he will call me up and get back in clinic so he can review the results with me. At this point, he has no further inpatient requirements for Pulmonary or Critical Care opinion, and I will sign off. He will need a 5-day course of steroids and antibiotic. Job ID: [id number]
[2018-12-20] MEDS: Atorvastatin Calcium 20 MG TAB PO SCH (19:50)
[2018-12-21 07:46] VITALS: TEMP 98
[2018-12-21] MEDS: Mometasone/Formoterol 120 PUFF INHALER INH SCH (08:12)
[2018-12-21] MEDS: Famotidine 20 MG TAB PO SCH (08:26)
[2018-12-21] MEDS: Amlodipine 10 MG TAB PO SCH (08:26)
[2018-12-21] MEDS: Cyanocobalamin (Vitamin B-12) 1,000 MCG TAB PO SCH (08:27)
[2018-12-21] MEDS: Amiodarone 200 MG TAB PO SCH (08:28)
[2018-12-21] MEDS: predniSONE 20 MG TAB PO SCH (08:29)
[2018-12-21] MEDS: guaiFENesin ER 600 MG TAB PO SCH (08:29)
[2018-12-21] MEDS: cloNIDine 0.1 MG TAB PO SCH (08:29)
[2018-12-21] MEDS: Metoprolol Tartrate 50 MG TAB PO SCH (08:29)
--- NOTE | 2018-12-21 10:24 | PRG ---
DATE OF SERVICE: 12/21/2018 SERVICE: Pulmonary Medicine. INTERVAL HISTORY: The patient is doing really well from a Cardiovascular standpoint. Denies any current chest pain, cough, sputum production, fevers, chills. He is coughing up a little bit of phlegm, but is much improved compared to where it was 3 days ago. He is basically back to his usual state of health and has no specific complaints currently. PHYSICAL EXAMINATION: VITAL SIGNS: Afebrile, pulse 64, blood pressure 176/87, respirations 18, saturation 95% on room air. GENERAL: The patient is awake and alert, in no apparent distress. LUNGS: Decent air entry. There is no prolonged expiratory phase. There are some rhonchi present, but clears with cough. No wheezing or crackles are appreciated. HEART: Normal rate and regular. ABDOMEN: Soft, nontender, nondistended. Bowel sounds are positive. MUSCULOSKELETAL: No cyanosis or clubbing. No pitting in the bilateral lower extremities. NEUROLOGIC: Grossly nonfocal. ASSESSMENT: 1. Acute hypoxic respiratory failure, resolved. 2. Chronic obstructive pulmonary disease with acute exacerbation, resolved. 3. PET-positive pulmonary nodule, status post nondiagnostic bronchoscopy. DISCUSSION AND PLAN: The patient is stable for transition out of the hospital. He is to get his biopsy arranged within the next 2 to 3 weeks. If he has any issues with doing so, I have asked him to immediately call my clinic. I would like for him to follow up with me 3 to 4 days after this biopsy can be performed. I have once again asked the patient to stay for another day and get the biopsy tomorrow and he has declined. He once again appreciates how important it is for us to understand what this lesion represents as his risk of malignancy is quite high. He needs to complete a 5 day course of steroids and antibiotics. At this time, he has no additional need for pulmonary or critical care opinion and I will sign off. Please call with additional questions or concerns. Job ID: [id number] [facility]
--- NOTE | 2018-12-21 11:36 | DIS ---
DATE OF ADMISSION: 12/18/2018 DATE OF DISCHARGE: 12/21/2018 PRIMARY CARE PHYSICIAN: Dr. Cristiano Philip. DISCHARGE DISPOSITION: Home. PRIMARY DISCHARGE DIAGNOSES: 1. Acute respiratory failure with hypoxia, resolved. 2. Chronic obstructive pulmonary disease exacerbation. 3. Acute kidney injury, resolved. SECONDARY DISCHARGE DIAGNOSES: 1. Tobacco abuse disorder. 2. Paroxysmal atrial fibrillation. 3. Chronic obstructive pulmonary disease. 4. Dyslipidemia. 5. Hypertension. PRIMARY PROCEDURE/OPERATION: None. RADIOLOGICAL INVESTIGATION: Chest x-ray on admission showed chronic changes without any acute process. SIGNIFICANT LABORATORY DATA: WBC 8.0, hemoglobin 12.7, platelets 209. Sodium 137, creatinine 1.12. BNP 242. LFT normal. Cardiac enzyme negative. Urinalysis normal. DISCHARGE MEDICATIONS: 1. Proventil two puffs q.12 hourly p.r.n. 2. Amiodarone 100 mg b.i.d. 3. Amlodipine 10 mg daily. 4. Lipitor 20 mg p.o. at bedtime. 5. Symbicort two puffs inhalation b.i.d. 6. Clonidine 0.1 mg t.i.d. 7. Vitamin B12, 500 mcg p.o. daily. 8. DuoNeb q.12 hourly p.r.n. 9. Lisinopril 20 mg p.o. daily. 10. Metoprolol tartrate 50 mg daily. 11. Mucinex 600 mg twice daily. 12. Levaquin 750 mg p.o. daily for 5 more days. 13. Prednisone 40 mg p.o. daily for 5 more days. CONTRAINDICATION: None. CODE STATUS: Full code. INPATIENT COATING MIXER SUPERVISOR: Dr. Khan was consulted while in hospital. TEST RESULTS PENDING ON DISCHARGE: None. ALLERGIES: CARDIZEM AND PENICILLIN. DISCHARGE PLAN: Posthospital, the patient will follow up with Dr. Khan. The patient will need repeat biopsy with bronchoscopy as directed upon followup visit. HOSPITAL COURSE: A 68-year-old male with above-mentioned medical problem, who was admitted by Dr. Velazquez. Please see his H and P for further details. The patient was having increasing shortness of breath, wheezing, cough. 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 He was hypoxic on admission. He was admitted to medical floor. He was treated with oxygen, DuoNeb therapy, Solu-Medrol, empiric antibiotic therapy with Levaquin. He also had acute kidney injury that was improved with IV fluid. We consulted Pulmonary for this patient based on family's request. Cattle Broker was already planning to do bronchoscopy with biopsy for his lung lesion, but this admission the patient also refused to go for that procedure. While in hospital, he was using BC Powder, which we advised him to stop before bronchoscopy. At this point, despite our multiple times given offers to do bronchoscopy while in hospital, he refuses and he wants to go home. The patient's family member is requesting nebulizer machine, which he can get from outpatient clinic. At this point, the patient is clinically stable. He is on room air. He is tolerating p.o. well, ambulatory. All new medication prescription given. He will finish Levaquin and prednisone for 5 more days. Rest of medication will be continued as per previous. I have seen and examined the patient at bedside today. PHYSICAL EXAMINATION: VITAL SIGNS: Currently, temperature 98.0, pulse 64, respiratory rate 16, saturation 95% on room air, blood pressure 145/81. GENERAL: The patient is currently alert, awake, in no obvious acute distress. HEENT: Head; normocephalic and atraumatic. Eyes; pupils are round, reactive to light. Extraocular muscle are intact. ENT, oropharynx within normal limits. LUNGS: Clear to auscultation without any rhonchi or rales. CARDIAC: S1 and S2, regular without any murmur. ABDOMEN: Soft and benign. EXTREMITIES: No edema. NEUROLOGIC: Nonfocal examination. Job ID: [id number]
[2018-12-21 12:25] VITALS: BP 177/87
--- NOTE | 2018-12-24 09:55 | EKG ---
Test Reason : Blood Pressure : / mmHG Vent. Rate : 083 BPM Atrial Rate : 083 BPM P-R Int : 168 ms QRS Dur : 096 ms QT Int : 412 ms P-R-T Axes : 081 037 062 degrees QTc Int : 484 ms Normal sinus rhythm Left atrial enlargement Nonspecific ST abnormality Prolonged QT Abnormal ECG Confirmed by FERNANDA SANCHEZ, DAYNA ([id number]), purchasing expeditor MARGAUX MATIAS ([id number]) on 12/24/2018 9:55:11 AM Referred By: Confirmed By:DAYNA MICHAEL MD
== END 2018-12-21 12:44 | disposition home or self-care (01) | DRG 189 ==
LOC: ERS 22:13 → T4-B 12-18 01:59
PROVIDERS: ADMIT Family Medicine; ATTEND Family Medicine
DX: J96.01 Acute respiratory failure with hypoxia (principal); J44.1 Chronic obstructive pulmonary disease with (acute) exacerbation; N17.9 Acute kidney failure, unspecified; I25.10 Atherosclerotic heart disease of native coronary artery without angina pectoris; F17.210 Nicotine dependence, cigarettes, uncomplicated; E78.5 Hyperlipidemia, unspecified; I48.0 Paroxysmal atrial fibrillation; R91.1 Solitary pulmonary nodule; I10 Essential (primary) hypertension; Z53.29 Procedure and treatment not carried out because of patient's decision for other reasons; Z79.51 Long term (current) use of inhaled steroids; Z79.899 Other long term (current) drug therapy; Z88.0 Allergy status to penicillin; Z88.8 Allergy status to other drugs, medicaments and biological substances; Z95.1 Presence of aortocoronary bypass graft
CPT/HCPCS: 36415; 71045; 80048; 80053; 81003; 81015; 82550; 83605; 83880; 84484; 85007; 85025; 85027; 93005; 94640; 94644; J0360; J2920; J7512; J7611; J7620

== ENCOUNTER 2019-05-26 12:43 | Inpatient (IN) | payer MEDICARE, MEDICAID ==
[2019-05-26 13:13] LABS: #Basophils 0.1 thou/uL (0.0-0.2); #Lymphocytes 0.7 thou/uL (1.20-3.40); #Monocytes 0.8 thou/uL (0.11-0.59); #Neutrophils 7.7 thou/uL (1.40-6.50); %Basophils 0.6 % (0.0-1.0); %Eosinophils 0.4 % (0.0-10.0); %Lymphocytes 7.5 % (21.0-51.0); %Monocytes 8.4 % (0.0-10.0); %Neutrophils 83.1 % (42.0-75.0); Hemoglobin 13.2 g/dL (14.0-18.0); Mean Corpuscular HGB CONC 31.6 g/dL (32.0-36.0); Mean Corpuscular Hemoglobin 30.4 pg (27.0-31.0); Mean Corpuscular Volume 96.3 fL (78.0-98.0); Mean Platelet Volume 7.2 fL (7.4-10.4); Platelet Count 324 thou/uL (130-400); RBC Distribution Width 12.7 % (11.5-14.5); Red Blood Cell (RBC) Count 4.34 mill/uL (4.70-6.10); White Blood Cell (WBC) Count 9.3 thou/uL (4.8-10.8)
[2019-05-26] MEDS ORDERED: methylPREDNISolone Sod Succ/PF 125 MG/2 ML VIAL ONE (13:14)
[2019-05-26 13:43] LABS: ALT (SGPT) 8 U/L (8-55); AST (SGOT) 12 U/L (5-34); Albumin 3.3 g/dL (3.4-4.8); Alkaline Phosphatase 67 U/L (40-110); Anion Gap 12 mmol/L (10-20); BUN (Urea Nitrogen) 14 mg/dL (8.4-25.7); Bilirubin, Total 0.6 mg/dL (0.2-1.2); Calc. Creatinine Clearance 0 mL/min (70-130); Carbon Dioxide 22 mmol/L (23-31); Chloride 104 mmol/L (98-107); Estimated GFR-MDRD 75; Globulin 3.6 g/dL (2.4-3.5); Glucose 118 mg/dL (80-115); Lipase 4 U/L (8-78); Potassium 4.5 mmol/L (3.5-5.1); Protein, Total 6.9 g/dL (5.8-8.1); Sodium 133 mmol/L (136-145)
--- NOTE | 2019-05-26 13:44 | RAD ---
EXAM: Chest one view: HISTORY: Shortness of breath for 3 weeks, COPD, dissection COMPARISON: 12/17/2018 FINDINGS: Status post midline sternotomy and aortic endo stent and postoperative changes in the right upper lob e with some bullous changes and some chronic linear changes in the right mid chest. Heart size: Borderline. Lungs: Fairly extensive alveolar parenchymal changes with confluence in the mid and lower lung zone o n the right side with some right pleural effusion certainly concerning for pneumonia. Stable left chest. No significant acute edema or pneumothorax. IMPRESSION: Right mid and lower lung confluent parenchymal changes evidence for pneumonia. Moderate right pleural effusion. Stable left chest.
[2019-05-26] MEDS ORDERED: Azithromycin 500 MG VIAL ONE (15:39)
[2019-05-26] MEDS ORDERED: MEROPENEM 1 GM/50 ML 1 GM in Premix Bag 1 BAG IVPB SCH (16:00)
[2019-05-26] MEDS ORDERED: Ondansetron PF 4 MG/2 ML Vial IVP PRN (16:43)
[2019-05-26 20:38] VITALS: BMI 18.3
[2019-05-26] MEDS: Famotidine 20 MG TAB PO SCH (21:36)
[2019-05-26] MEDS: Acetaminophen 325 MG TAB PO PRN (21:43)
[2019-05-26] MEDS: Senokot S 8.6-50 MG TAB PO PRN (21:43)
--- NOTE | 2019-05-26 23:52 | HP ---
PRESENTING COMPLAINT: Shortness of breath, cough, wheezing. HISTORY OF PRESENT ILLNESS: The patient with a past medical history of chronic obstructive airway disease, coronary artery disease status post CABG, history of aortic aneurysm repair, hypertension, smokes cigar, presented with cough, shortness of breath, wheezing, ongoing from last 3 weeks as per patient, he has cough with whitish-colored sputum production from last 3 weeks and he thought it will get better, but the patient's symptoms got worse and today he presented to the emergency room. The patient was noted to be hypoxic on room air 87%. The patient is saturating well with oxygen. Denies any chest pain except the right lower chest pain with breathing and also complains of mild runny nose. Has mild swelling of the left leg which is chronic as per patient since CABG. Denies any headache, complaints of mild dizziness. Denies fever production. Denies nausea, vomiting, diarrhea. As per patient, he has been feeling more constipation, usually he goes to bathroom every 2nd day, but unable to go to bathroom last 4 days. Denies any urinary complaints. Initial workup in the emergency room showed right lung pneumonia. The patient being admitted for COPD exacerbation with right lung pneumonia. SYSTEMIC REVIEW: As mentioned above. PAST MEDICAL HISTORY: As mentioned above. PAST SURGICAL HISTORY: History of CABG, history of left knee surgery, history of aortic repair after aortic dissection. ALLERGIES: TO PENICILLIN AND DILTIAZEM. FAMILY HISTORY: Positive for coronary artery disease, hypertension. HOME MEDICATIONS: 1. Clonidine. 2. Guaifenesin. 3. DuoNeb. 4. Lisinopril. 5. Metoprolol. PHYSICAL EXAMINATION: VITAL SIGNS: Blood pressure 143/74, temperature 98.6, oxygen saturation 96% on nasal cannula, pulse 76, respiratory rate 22. GENERAL: The patient lying in bed comfortably, not in any distress. Conjunctiva normal. Oral mucosa moist. NECK: Supple. No JVD. No lymphadenopathy. CHEST: Vesicular breathing. Prolonged expiration, decreased air entry bilateral lower lung messina, mostly on the right. HEART: Sounds normal. ABDOMEN: Soft, benign, nontender, no visceromegaly. EXTREMITIES: Negative edema of feet. SKIN: No rash. No cyanosis. LABORATORY DATA: CBC unremarkable. BMP unremarkable except sodium 133. Troponin 0.018. Chest x-ray, right mid and lower lung confluent parenchymal changes, evidence for pneumonia. Moderate right pleural effusion. Stable left chest. IMPRESSION: 1. Acute hypoxemic respiratory failure, most likely secondary to chronic obstructive pulmonary disease exacerbation and possible right middle and lower lung pneumonia. The patient has a history of right lung bronchoscopy and mass before, which was nondiagnostic. We will get pulmonary evaluation. We will continue antibiotics at present. Continue Legionella and streptococcal antigen. Continue oxygen. Monitor clinically. Continue nebs. I will avoid steroids as currently the patient is saturating well. No obvious wheezing noted. 2. History of coronary artery disease. Troponins are negative. The patient denies any chest pain, is only complaining of right lower chest pain most likely secondary to pneumonia. 3. History of hypertension. Continue monitoring blood pressure. Continue medication. 4. History of tobacco abuse. Currently he smokes cigar. The patient advised avoiding cigar smoking. 5. Deep venous thrombosis, gastrointestinal prophylaxis. Plan discussed with the patient and nursing staff. Job ID: [id number]
[2019-05-27 01:22] LABS: Bacteria/HPF None Seen HPF (None Seen); Bilirubin Negative (Negative); Blood, Urine Negative (Negative); Clarity Clear (Clear); Glucose, Urine (Dipstick) 500 mg/dL (Negative); Leukocyte Negative Leu/uL (Negative); Nitrite Negative (Negative); Protein, Urine (Dipstick) 20 mg/dL (Neg-Trace); RBC/HPF 0-3 HPF (0-3); Squamous Epithelial None Seen HPF (0-3); Urobilinogen Normal mg/dL (Less than 2); WBC/HPF 0-3 HPF (0-3)
[2019-05-27] MEDS: Morphine 2 MG/ML SYRINGE SLOW IVP PRN (01:42)
[2019-05-27 02:18] LABS: Legionella Urinary Ag Negative (Negative); Strep pneumo Urine Ag NEGATIVE (NEGATIVE)
[2019-05-27 05:24] LABS: Anion Gap 9 mmol/L (10-20); BUN (Urea Nitrogen) 21 mg/dL (8.4-25.7); Calc. Creatinine Clearance 57 mL/min (70-130); Carbon Dioxide 26 mmol/L (23-31); Chloride 106 mmol/L (98-107); Estimated GFR-MDRD 74; Glucose 172 mg/dL (80-115); Potassium 4.7 mmol/L (3.5-5.1); Sodium 136 mmol/L (136-145)
[2019-05-27 05:42] LABS: Hemoglobin 12.5 g/dL (14.0-18.0); Lymphocytes 3 % (21-51); MDiff Complete? YES; Mean Corpuscular HGB CONC 32.3 g/dL (32.0-36.0); Mean Corpuscular Hemoglobin 30.6 pg (27.0-31.0); Mean Corpuscular Volume 94.6 fL (78.0-98.0); Mean Platelet Volume 7.4 fL (7.4-10.4); Monocytes 5 % (0-10); Neutrophil 92 % (42-75); Platelet Count 307 thou/uL (130-400); RBC Distribution Width 12.7 % (11.5-14.5); Red Blood Cell (RBC) Count 4.07 mill/uL (4.70-6.10); White Blood Cell (WBC) Count 10.8 thou/uL (4.8-10.8)
[2019-05-27] MEDS: Enoxaparin Sodium 40 MG/0.4 ML SYRINGE SC SCH (08:59)
[2019-05-27] MEDS: Senokot S 8.6-50 MG TAB PO PRN (08:59)
[2019-05-27] MEDS: Famotidine 20 MG TAB PO SCH ×2 (08:59→21:07)
--- NOTE | 2019-05-27 15:24 | PDOC.HOSPP ---
- Subjective Encounter Date: 05/27/19 Encounter Time: 15:00 Subjective: breathing better - Objective Vital Signs & Weight: Vital Signs (12 hours) Temp Pulse Resp BP Pulse Ox 05/27/19 15:20 83 20 95 05/27/19 12:10 85 152/74 H 05/27/19 11:00 98.1 F 84 20 175/86 H 98 05/27/19 10:54 83 18 94 L 05/27/19 07:55 95 05/27/19 07:54 102 H 18 95 05/27/19 07:33 95 05/27/19 07:24 98 F 71 18 157/71 H 95 05/27/19 04:00 97.7 F 73 18 128/62 95 Weight Admit Weight 150 lb 11.2 oz Weight 150 lb 11.2 oz Result Diagrams: 05/27/19 04:01 05/27/19 04:01 Hospitalist ROS - Medication Medications: Active Medications Generic Name Dose Route Start Last Admin Trade Name Freq PRN Reason Stop Dose Admin Acetaminophen 650 mg 05/26/19 16:43 05/26/19 21:43 Tylenol PO 650 mg Q4H PRN Administration Headache/Fever/Mild Pain (1-3) Albuterol/Ipratropium 3 ml 05/26/19 19:00 05/27/19 15:20 Duoneb NEB 3 ml [id number] TRINI Administration Enoxaparin Sodium 40 mg 05/27/19 09:00 05/27/19 08:59 Lovenox SC 40 mg 0900 TRINI Administration Famotidine 20 mg 05/26/19 21:00 05/27/19 08:59 Pepcid PO 20 mg BID TRINI Administration Levofloxacin 750 mg/ Device 150 mls @ 100 mls/hr 05/26/19 21:00 05/26/19 21: 35 IVPB 150 mls 2100 TRINI Administration Morphine Sulfate 1 mg 05/27/19 01:29 05/27/19 01:42 Morphine SLOW IVP 1 mg Q4H PRN Administration Moderate Pain (4-6) Senna/Docusate Sodium 2 tab 05/26/19 16:43 05/27/19 08:59 Senokot S PO 2 tab BIDPRN PRN Administration Constipation - Exam General Appearance: awake alert Eye: PERRL, anicteric sclera ENT: no oropharyngeal lesions, moist mucosa Neck: supple, no JVD Heart: RRR, no murmur Respiratory: no rales, rhonchi, wheezes Gastrointestinal: soft, non-tender, non-distended, normal bowel sounds Extremities: no cyanosis, no edema Neurological: cranial nerve grossly intact, no focal deficits Psychiatric: normal affect, A&O x 3 Hosp A/P (1) COPD exacerbation Code(s): J44.1 - CHRONIC OBSTRUCTIVE PULMONARY DISEASE W (ACUTE) EXACERBATION Status: Acute (2) H/O thoracic aortic aneurysm repair Code(s): Z98.890 - OTHER SPECIFIED POSTPROCEDURAL STATES; Z86.79 - PERSONAL HISTORY OF OTHER DISEASES OF THE CIRCULATORY SYSTEM Status: Chronic (3) Dyslipidemia Code(s): E78.5 - HYPERLIPIDEMIA, UNSPECIFIED Status: Chronic (4) Hypertension Code(s): I10 - ESSENTIAL (PRIMARY) HYPERTENSION Status: Chronic Qualifiers: Hypertension type: essential hypertension Qualified Code(s): I10 - Essential (primary) hypertension (5) PAF (paroxysmal atrial fibrillation) Code(s): I48.0 - PAROXYSMAL ATRIAL FIBRILLATION Status: Chronic - Plan is on nebs, levaquin, steroids to ambulate as tolerated may tx to [facility] floor [facility]
[2019-05-27] MEDS ORDERED: methylPREDNISolone Sod Succ 40 MG VIAL IM SCH (17:15)
[2019-05-27] MEDS ORDERED: Bisacodyl 5 MG TAB PO SCH (17:15)
[2019-05-27] MEDS ORDERED: methylPREDNISolone Sod Succ 40 MG VIAL IVP SCH (18:00)
[2019-05-27] MEDS: Mometasone/Formoterol 120 PUFF INHALER INH SCH (18:58)
[2019-05-27] MEDS ORDERED: Amiodarone 200 MG TAB PO SCH (21:00)
[2019-05-27] MEDS: Docusate 100 MG CAP PO SCH (21:07)
[2019-05-27] MEDS: Acetaminophen 325 MG TAB PO PRN (21:07)
[2019-05-27] MEDS: cloNIDine 0.1 MG TAB PO SCH (21:07)
--- NOTE | 2019-05-27 22:25 | CON ---
DATE OF CONSULTATION: SUBJECTIVE: Mr. Bautista is a very pleasant 69-year-old male. He says for 3 weeks, he had not felt good. He likes to work, so he is trying to work through this, hoping that it would all get better. His main complaints were cough. He did not think he had any fever. When he started getting more short of breath, he decided to come to the hospital. PAST MEDICAL HISTORY: 1. Remarkable for coronary artery bypass grafting in the past. 2. History of knee surgery. 3. History of an aortic dissection that was repaired in [place]. He cannot recall the name of the doctor who did the repair. FAMILY HISTORY: Positive for coronary artery disease and hypertension. ALLERGIES: HE HAS A HISTORY OF ALLERGIES TO PENICILLIN AND CARDIZEM. MEDICATIONS: Prior to admission, he was on Catapres, guaifenesin, DuoNeb, lisinopril, metoprolol. REVIEW OF SYSTEMS: 10-point review of systems otherwise negative. He says a month ago, he felt pretty good. PHYSICAL EXAMINATION: VITAL SIGNS: He is afebrile. Heart rate is 84, respiratory rate is 20, oximetry is 98% on 2 L, blood pressure 175/86. HEENT: Pupils are equal. Sclerae anicteric. At the angle of his jaw, he has a very large sebaceous cyst that he quickly says is an ingrown hair. NECK: Supple. No lymphadenopathy. LUNGS: Clear. HEART: Regular rhythm. S1, S2 are normal. ABDOMEN: Soft and nontender. EXTREMITIES: Without clubbing, cyanosis, or edema. NEUROLOGIC: Nonfocal. LABORATORY DATA: White count 10.8, hemoglobin 12.5, platelets 307. Electrolytes are normal. Glucose 172, albumin is 3.3. Urinalysis shows glucosuria, but minimal protein. Chest x-ray shows right lower and right middle lobe infiltrate. IMPRESSION: Pneumonia, community acquired. He has poor dentition, so this maybe contributing factor. PLAN: 1. Continue antimicrobial therapy. 2. We will continue nebulizer treatments. 3. He can probably be treated with p.o. antimicrobial therapy in the morning. It does not appear that any cultures were done on admission. 4. He is complaining of constipation. He probably needs more than Senokot for his constipation. He says he has not had a bowel movement in 7 days. I will put an order in for Elilax. Job ID: [id number] 50 minute consult with 50% of time on unit coordinating care TYREE
[2019-05-28] MEDS ORDERED: cloNIDine 0.1 MG TAB PO PRN (02:00)
[2019-05-28] MEDS ORDERED: Amiodarone 200 MG TAB PO SCH ×2 (02:00→09:00)
[2019-05-28] MEDS: Mometasone/Formoterol 120 PUFF INHALER INH SCH ×2 (07:43→19:58)
[2019-05-28] MEDS: Aspirin 81 mg Enteric Coated Tablet PO SCH (09:00)
[2019-05-28] MEDS: Lisinopril 20 MG TAB PO SCH (09:00)
[2019-05-28] MEDS: Amlodipine 10 MG TAB PO SCH (09:00)
[2019-05-28] MEDS: Docusate 100 MG CAP PO SCH ×2 (09:00→20:04)
[2019-05-28] MEDS: Polyethylene Glycol 3350 17 GM Packet PO SCH (09:00)
[2019-05-28] MEDS: Amiodarone 200 MG TAB PO SCH ×2 (09:01→20:02)
[2019-05-28] MEDS: Metoprolol Tartrate 50 MG TAB PO SCH (09:01)
[2019-05-28] MEDS: Isosorbide Mononitrate (ER) 30 MG TAB PO SCH (09:01)
[2019-05-28] MEDS: cloNIDine 0.1 MG TAB PO SCH ×2 (09:01→20:03)
[2019-05-28] MEDS: Enoxaparin Sodium 40 MG/0.4 ML SYRINGE SC SCH (09:02)
[2019-05-28] MEDS: Famotidine 20 MG TAB PO SCH ×2 (09:02→20:04)
[2019-05-28] MEDS ORDERED: Bisacodyl 10 MG SUPP PR PRN (12:54)
--- NOTE | 2019-05-28 13:38 | PDOC.HOSPP ---
- Subjective Encounter Date: 05/28/19 Encounter Time: 12:00 Subjective: sob is better no bm yet is amb in room - Objective Vital Signs & Weight: Vital Signs (12 hours) Temp Pulse Resp BP BP Pulse Ox 05/28/19 13:00 97.8 F 22 H 157/83 H 90 L 05/28/19 10:59 70 20 05/28/19 07:44 91 L 05/28/19 07:41 71 20 91 L 05/28/19 07:40 97.5 F L 72 20 163/80 H 98 05/28/19 04:00 97.7 F 70 16 162/76 H 96 05/28/19 02:02 208/101 H 05/28/19 01:37 168/82 H Weight Admit Weight 150 lb 11.2 oz Weight 150 lb 11.2 oz I&O: 05/27/19 05/28/19 05/29/19 06:59 06:59 06:59 Intake Total 1400 Output Total 1550 Balance -150 Result Diagrams: 05/27/19 04:01 05/27/19 04:01 Hospitalist ROS - Medication Medications: Active Medications Generic Name Dose Route Start Last Admin Trade Name Freq PRN Reason Stop Dose Admin Acetaminophen 650 mg 05/26/19 16:43 05/27/19 21:07 Tylenol PO 650 mg Q4H PRN Administration Headache/Fever/Mild Pain (1-3) Albuterol/Ipratropium 3 ml 05/26/19 19:00 05/28/19 10:59 Duoneb NEB 3 ml [id number] TRINI Administration Amiodarone HCl 100 mg 05/28/19 09:00 05/28/19 09:01 Cordarone PO 100 mg BID TRINI Administration Amlodipine Besylate 10 mg 05/28/19 09:00 05/28/19 09:00 Norvasc PO 10 mg DAILY TRINI Administration Aspirin 81 mg 05/28/19 09:00 05/28/19 09:00 Ecotrin PO 81 mg DAILY TRINI Administration Clonidine 0.1 mg 05/27/19 21:00 05/28/19 09:01 Catapres PO 0.1 mg BID TRINI Administration Clonidine 0.1 mg 05/28/19 02:00 05/28/19 02:02 Catapres PO 0.1 mg Q12H PRN Administration SBP>160 Docusate Sodium 100 mg 05/27/19 21:00 05/28/19 09:00 Colace PO 100 mg BID TRINI Administration Enoxaparin Sodium 40 mg 05/27/19 09:00 05/28/19 09:02 Lovenox SC 40 mg 0900 TRINI Administration Famotidine 20 mg 05/26/19 21:00 05/28/19 09:02 Pepcid PO 20 mg BID TRINI Administration Isosorbide Mononitrate 30 mg 05/28/19 09:00 05/28/19 09:01 Imdur Er PO 30 mg DAILY TRINI Administration Lisinopril 20 mg 05/28/19 09:00 05/28/19 09:00 Zestril PO 20 mg DAILY [facility] Administration Metoprolol Tartrate 50 mg 05/28/19 09:00 05/28/19 09:01 Lopressor PO 50 mg DAILY TRINI Administration Mometasone Furoate/Formoterol Fumar 2 puff 05/27/19 18:30 05/28/19 07:43 Dulera 200 Mcg/5 Mcg Inhaler INH 2 puff BID-RT TRINI Administration Morphine Sulfate 1 mg 05/27/19 01:29 05/27/19 01:42 Morphine SLOW IVP 1 mg Q4H PRN Administration Moderate Pain (4-6) Polyethylene Glycol 17 gm 05/28/19 09:00 05/28/19 09:00 Miralax PO 17 gm DAILY TRINI Administration Senna/Docusate Sodium 2 tab 05/26/19 16:43 05/27/19 08:59 Senokot S PO 2 tab BIDPRN PRN Administration Constipation - Exam General Appearance: awake alert Eye: PERRL, anicteric sclera ENT: no oropharyngeal lesions, moist mucosa Neck: supple, no JVD Heart: RRR, no murmur Respiratory: no wheezes, no rales, rhonchi Gastrointestinal: soft, non-tender, non-distended, normal bowel sounds Extremities: no cyanosis, no edema Neurological: cranial nerve grossly intact, no focal deficits Psychiatric: normal affect, A&O x 3 Hosp A/P (1) COPD exacerbation Code(s): J44.1 - CHRONIC OBSTRUCTIVE PULMONARY DISEASE W (ACUTE) EXACERBATION Status: Acute (2) H/O thoracic aortic aneurysm repair Code(s): Z98.890 - OTHER SPECIFIED POSTPROCEDURAL STATES; Z86.79 - PERSONAL HISTORY OF OTHER DISEASES OF THE CIRCULATORY SYSTEM Status: Chronic (3) Dyslipidemia Code(s): E78.5 - HYPERLIPIDEMIA, UNSPECIFIED Status: Chronic (4) Hypertension Code(s): I10 - ESSENTIAL (PRIMARY) HYPERTENSION Status: Chronic Qualifiers: Hypertension type: essential hypertension Qualified Code(s): I10 - Essential (primary) hypertension (5) PAF (paroxysmal atrial fibrillation) Code(s): I48.0 - PAROXYSMAL ATRIAL FIBRILLATION Status: Chronic - Plan no fever, will watch for possible empyema developing if he gets toxic with parapneumonic effusion. is on nebs, levaquin, steroids dulcolax suppository, if needed may give fleets enema, is on oral agents to ambulate as tolerated may tx to [facility] floor [facility]
--- NOTE | 2019-05-28 21:08 | PRG ---
DATE OF SERVICE: 05/28/2019 SUBJECTIVE: Mr. Bautista says he is feeling little bit better, but he is not back to normal. He still has some pleuritic chest discomfort on the right. OBJECTIVE: VITAL SIGNS: His vital signs have been stable. His oximetry is in the high 80s on 3 L, so he was turned up to 4 L. GENERAL: He is transferred off the telemetry unit today. LUNGS: Remarkable for decreased breath sounds at his right base. HEART: Regular rhythm. ABDOMEN: Soft and nontender. EXTREMITIES: Without clubbing, cyanosis, or edema. IMPRESSION: 1. Pneumonia. His pneumonia has probably been going on for several weeks. He is slowly improving. a. It may be aspiration mediated given his poor dentition. 2. Large sebaceous cyst? at the angle of his jaw on the right. 3. History of coronary artery bypass grafting in the past. 4. History of an aortic dissection repaired in the past. PLAN: Continue with supportive care. Stable to move out of telemetry to a medical bed. He will need to ambulate, begin with physical therapy, and continue with IV antibiotics today, but maybe p.o. antibiotics can be started tomorrow. He will continue nebulized treatments hopefully to facilitate secretion clearance. Job ID: [id number]
[2019-05-28] MEDS: Acetaminophen 325 MG TAB PO PRN (22:52)
[2019-05-29] MEDS: Morphine 2 MG/ML SYRINGE SLOW IVP PRN ×2 (06:10→19:14)
[2019-05-29] MEDS: Mometasone/Formoterol 120 PUFF INHALER INH SCH ×2 (07:38→18:15)
[2019-05-29] MEDS: Enoxaparin Sodium 40 MG/0.4 ML SYRINGE SC SCH (08:41)
[2019-05-29] MEDS: Famotidine 20 MG TAB PO SCH ×2 (08:41→20:25)
[2019-05-29] MEDS: Amiodarone 200 MG TAB PO SCH ×2 (08:41→20:24)
[2019-05-29] MEDS: Lisinopril 20 MG TAB PO SCH (08:42)
[2019-05-29] MEDS: Amlodipine 10 MG TAB PO SCH (08:42)
[2019-05-29] MEDS: Docusate 100 MG CAP PO SCH ×2 (08:42→20:25)
[2019-05-29] MEDS: Acetaminophen 325 MG TAB PO PRN ×2 (08:42→17:13)
[2019-05-29] MEDS: Metoprolol Tartrate 50 MG TAB PO SCH (08:42)
[2019-05-29] MEDS: Aspirin 81 mg Enteric Coated Tablet PO SCH (08:43)
[2019-05-29] MEDS: Isosorbide Mononitrate (ER) 30 MG TAB PO SCH (08:43)
[2019-05-29] MEDS: cloNIDine 0.1 MG TAB PO SCH ×2 (08:43→20:24)
[2019-05-29] MEDS: Polyethylene Glycol 3350 17 GM Packet PO SCH (08:43)
--- NOTE | 2019-05-29 11:07 | PQF ---
ANNABEL SALAS, ZHOU KONG MD [id number] CLINICAL DOCUMENTATION IMPROVEMENT CLARIFICATION FORM: ICD-10 Updated PLEASE DO AN ADDENDUM TO THE PROGRESS NOTE WITH ANY DOCUMENTATION UPDATES OR ADDITIONS AND CARRY THROUGH TO DC SUMMARY. THANK YOU. DATE: 05/29/19 ATTN: Dr. Mahoney, Please exercise your independent, professional judgment in responding to the clarification form. Clinical indicators are provided on the bottom of this form for your review Please check appropriate box(s): Conflicting documentation was noted in the Medical Record, please clarify if patient is being treated/monitored for: [ ] Aspiration pneumonia (diagnosis #1) [ x] Community acquired pneumonia____(diagnosis #2) [ ] Other diagnosis [ ] Unable to determine In addition, please specify: Present on Admission (POA): [x ] Yes [ ] No [ ] Unable to determine For continuity of documentation, please document condition throughout progress notes and discharge summary. Thank You. CLINICAL INDICATORS - SIGNS / SYMPTOMS/ LABS / RESULTS AND LOCATION IN EMR 05/26 CXR: Pneumonia, right mid and lower lung 05/26 H&P(Ishfaq): "hypoxic on room air 87%" 05/26 ED VS RR up to 24 05/27 (Tamera):" pneumonia, community acquired, poor dentition" 05/28 (Danish): "pneumonia. it may be aspiration mediated given his poor dentition." RISK FACTORS / RESULTS AND LOCATION IN EMR 05/26 H&P( Ishfaq): "Possible right middle and lower lung pneumonia, COPD exacerbation, acute hypoxemic respiratory failure, tobacco abuse, smokes a cigar " TREATMENT / RESULTS AND LOCATION IN EMR IV antibiotics: 05/26 Meropenem 1gm IV x1; azithromycin 500mg IV x1 to 05/26- Levaquin 750mg IV daily to 05/27 Levaquin 500mg IV daily to date per orders Steroids--> Solu-Medrol 125mg IV 05/26 x1, 05/27 x1 Solu-medrol 20mg IV x1 per orders Nebulizer--> duo nebs albuterol/ipratropium 3ml 05/26 Q4H 05/26 to date per orders Pulmonary consult 05/27 per orders (This form is maintained as a part of the permanent medical record) 2014 [employer], [employer]. All Rights Reserved Chiqui Jarvis RN, BSN, CCDS [email or web address] [phone] MTDD
--- NOTE | 2019-05-29 14:07 | PRG ---
DATE OF SERVICE: 05/29/2019 SERVICE: Pulmonary Medicine. INTERVAL HISTORY: The patient returns to the hospital. He is actually doing quite well from respiratory standpoint. On presentation to the emergency department, he had complaints of difficulty breathing, cough, and wheezing. All of these things seem to have resolved at this point. He denies any fevers overnight. He is breathing comfortably back on room air. I have once again talked to him about the pulmonary nodule that is PET positive. I have strongly encouraged him on multiple occasions to get a biopsy of this thing. At this point, I offered to set it up on an inpatient basis as early as tomorrow morning, and he is indicating that he does not want to pursue that. He took some BC Powder. He understands that from my perspective, I believe that we are dealing with a cancer-type process. We fail to make a diagnosis from a bronchoscopic approach. It is absolutely mandatory that we get any answer to this thing to prevent this thing from progressing more than it already has. On multiple occasions, we attempted to set this thing up in the outpatient setting, but it always felt of the cracks because for one reason or another. He understands how important is to biopsy this thing, so we can understand what it is and talk about different treatment therapies. Once again, I emphasized that I do believe that it could be a cancer process. PHYSICAL EXAMINATION: VITAL SIGNS: Afebrile, pulse 59, blood pressure 164/78, respirations 16, and saturation 91% on 2 L nasal cannula. GENERAL: The patient is awake and alert, in no apparent distress. LUNGS: Decent air entry. No prolonged expiratory phase or wheezing is appreciated. HEART: Normal rate, regular. ABDOMEN: Soft, nontender, and nondistended. Bowel sounds are positive. MUSCULOSKELETAL: No cyanosis or clubbing. There is no pitting in bilateral lower extremities. NEUROLOGIC: Grossly nonfocal. LABORATORY DATA: WBC 10.8, hemoglobin 12.5, and platelets 307,000. Creatinine 1.18. Basic metabolic profile is otherwise unremarkable. Liver function studies are unremarkable. Troponin is negative. Urinalysis is unremarkable. Legionella and Strep urine antigens are negative. Respiratory culture is negative to date. ASSESSMENT: 1. Acute hypoxic respiratory failure, resolved. 2. Pleural effusion, suspected. 3. Community-acquired pneumonia. 4. Pulmonary nodule, previously PET positive. DISCUSSION AND PLAN: We can convert over to oral antibiotics. The patient will need to remain in-house until tomorrow morning. If he is doing well on p.o. medications, he could be considered for discharge, though I would like to assess this space with an ultrasound and consider thoracentesis prior to him being discharged from the hospital. If there is no fluid there, no tap will be done. If there is fluid there, we will need to follow up on the pathology and if it is positive, no additional studies will be required. If it is negative, however, we will likely need to pursue an interventional biopsy of this pulmonary nodule in the outpatient setting, once again. Once again, I have encouraged him to do that on the inpatient setting, but he has declined. Job ID: [id number]
--- NOTE | 2019-05-29 14:38 | PDOC.HOSPP ---
- Subjective Encounter Date: 05/29/19 Encounter Time: 08:45 Subjective: sob better, no chest pain is ambulating in room - Objective Vital Signs & Weight: Vital Signs (12 hours) Temp Pulse Resp BP BP Pulse Ox 05/29/19 13:57 89 16 91 L 05/29/19 10:30 59 L 16 91 L 05/29/19 08:43 164/78 H 05/29/19 08:42 75 164/78 H 05/29/19 08:00 95 05/29/19 07:39 18 96 05/29/19 07:38 86 16 96 05/29/19 07:28 97.8 F 75 18 164/78 H 95 05/29/19 04:00 98.1 F 75 20 159/74 H 93 L Weight Admit Weight 150 lb 11.2 oz Weight 150 lb 11.2 oz I&O: 05/28/19 05/29/19 05/30/19 06:59 06:59 06:59 Intake Total 1400 480 Output Total 1550 525 Balance -150 -45 Result Diagrams: 05/27/19 04:01 05/27/19 04:01 Hospitalist ROS - Medication Medications: Active Medications Generic Name Dose Route Start Last Admin Trade Name Freq PRN Reason Stop Dose Admin Acetaminophen 650 mg 05/26/19 16:43 05/29/19 08:42 Tylenol PO 650 mg Q4H PRN Administration Headache/Fever/Mild Pain (1-3) Albuterol/Ipratropium 3 ml 05/26/19 19:00 05/29/19 13:57 Duoneb NEB 3 ml [id number] TRINI Administration Amiodarone HCl 100 mg 05/28/19 09:00 05/29/19 08:41 Cordarone PO 100 mg BID TRINI Administration Amlodipine Besylate 10 mg 05/28/19 09:00 05/29/19 08:42 Norvasc PO 10 mg DAILY TRINI Administration Aspirin 81 mg 05/28/19 09:00 05/29/19 08:43 Ecotrin PO 81 mg DAILY TRINI Administration Clonidine 0.1 mg 05/27/19 21:00 05/29/19 08:43 Catapres PO 0.1 mg BID TRINI Administration Clonidine 0.1 mg 05/28/19 02:00 05/28/19 02:02 Catapres PO 0.1 mg Q12H PRN Administration SBP>160 Docusate Sodium 100 mg 05/27/19 21:00 05/29/19 08:42 Colace PO 100 mg BID [facility] Administration Enoxaparin Sodium 40 mg 05/27/19 09:00 05/29/19 08:41 Lovenox SC 40 mg 0900 TRINI Administration Famotidine 20 mg 05/26/19 21:00 05/29/19 08:41 Pepcid PO 20 mg BID [facility] Administration Levofloxacin 500 mg/ Device 100 mls @ 100 mls/hr 05/28/19 21:00 05/28/19 20: 04 IVPB 100 mls Q24HR TRINI Administration Isosorbide Mononitrate 30 mg 05/28/19 09:00 05/29/19 08:43 Imdur Er PO 30 mg DAILY [facility] Administration Lisinopril 20 mg 05/28/19 09:00 05/29/19 08:42 Zestril PO 20 mg DAILY [facility] Administration Metoprolol Tartrate 50 mg 05/28/19 09:00 05/29/19 08:42 Lopressor PO 50 mg DAILY [facility] Administration Mometasone Furoate/Formoterol Fumar 2 puff 05/27/19 18:30 05/29/19 07:38 Dulera 200 Mcg/5 Mcg Inhaler INH 2 puff BID-RT [facility] Administration Morphine Sulfate 1 mg 05/27/19 01:29 05/29/19 06:10 Morphine SLOW IVP 1 mg Q4H PRN Administration Moderate Pain (4-6) Polyethylene Glycol 17 gm 05/28/19 09:00 05/29/19 08:43 Miralax PO 17 gm DAILY [facility] Administration Senna/Docusate Sodium 2 tab 05/26/19 16:43 05/27/19 08:59 Senokot S PO 2 tab BIDPRN PRN Administration Constipation - Exam General Appearance: NAD, awake alert Eye: PERRL, anicteric sclera ENT: no oropharyngeal lesions, moist mucosa Neck: supple, no JVD Heart: RRR, no murmur Respiratory: no wheezes, no rales, rhonchi Gastrointestinal: soft, non-tender, non-distended, normal bowel sounds Extremities: no cyanosis, no edema Skin: normal turgor, no rashes Neurological: cranial nerve grossly intact, no focal deficits Psychiatric: normal affect, A&O x 3 Hosp A/P (1) COPD exacerbation Code(s): J44.1 - CHRONIC OBSTRUCTIVE PULMONARY DISEASE W (ACUTE) EXACERBATION Status: Acute (2) H/O thoracic aortic aneurysm repair Code(s): Z98.890 - OTHER SPECIFIED POSTPROCEDURAL STATES; Z86.79 - PERSONAL HISTORY OF OTHER DISEASES OF THE CIRCULATORY SYSTEM Status: Chronic (3) Dyslipidemia Code(s): E78.5 - HYPERLIPIDEMIA, UNSPECIFIED Status: Chronic (4) Hypertension Code(s): I10 - ESSENTIAL (PRIMARY) HYPERTENSION Status: Chronic Qualifiers: Hypertension type: essential hypertension Qualified Code(s): I10 - Essential (primary) hypertension (5) PAF (paroxysmal atrial fibrillation) Code(s): I48.0 - PAROXYSMAL ATRIAL FIBRILLATION Status: Chronic - Plan no fever, will watch for possible empyema developing if he gets toxic with parapneumonic effusion. is on nebs, levaquin, steroids dulcolax suppository, if needed may give fleets enema, is on oral agents to ambulate as tolerated right thoracentesis likely in am, has dullness to percussion clinically chronic b/l lung nodule, prior bronch/bx 07/2018 was -ve for cancer but PET is + ve on right lung nodule hemostable
[2019-05-30] MEDS: Acetaminophen 325 MG TAB PO PRN ×4 (01:15→22:51)
[2019-05-30] MEDS: Mometasone/Formoterol 120 PUFF INHALER INH SCH ×2 (07:50→19:37)
[2019-05-30] MEDS: Amiodarone 200 MG TAB PO SCH ×2 (08:23→21:17)
[2019-05-30] MEDS: Lisinopril 20 MG TAB PO SCH (08:25)
[2019-05-30] MEDS: Isosorbide Mononitrate (ER) 30 MG TAB PO SCH (08:25)
[2019-05-30] MEDS: cloNIDine 0.1 MG TAB PO SCH ×2 (08:26→21:19)
[2019-05-30] MEDS: Famotidine 20 MG TAB PO SCH ×2 (08:26→21:17)
[2019-05-30] MEDS: Aspirin 81 mg Enteric Coated Tablet PO SCH (08:26)
[2019-05-30] MEDS: Amlodipine 10 MG TAB PO SCH (08:26)
[2019-05-30] MEDS: Enoxaparin Sodium 40 MG/0.4 ML SYRINGE SC SCH (08:27)
[2019-05-30] MEDS: Docusate 100 MG CAP PO SCH ×2 (08:27→21:17)
[2019-05-30] MEDS: Metoprolol Tartrate 50 MG TAB PO SCH (08:27)
[2019-05-30] MEDS: Polyethylene Glycol 3350 17 GM Packet PO SCH (08:28)
[2019-05-30] MEDS: Morphine 2 MG/ML SYRINGE SLOW IVP PRN ×4 (08:28→21:24)
[2019-05-30 14:46] LABS: Pleural Fluid, Protein 3.6 g/dL
[2019-05-30 14:48] LABS: RBC Count-Automated (BF) 7298 /cumm; WBC/Nucleated-Auto (BF) 2432 uL
[2019-05-30 14:50] LABS: BF Color Yellow; Body Fluid Source Thoracentesis Fluid; Clarity Cloudy/Turbid (Clear); Tube # EDTA
[2019-05-30 14:53] LABS: BF Segmented Neutrophils 46 %; Cell Count Non Hematic 32 %; Eosinophils 1 %; Lymphocytes 21 %
--- NOTE | 2019-05-30 15:25 | PRG ---
DATE OF SERVICE: 05/30/2019 SERVICE: Pulmonary Medicine. INTERVAL HISTORY: The patient is doing fine from respiratory standpoint. That being said, whenever he gets up, he feels fairly weak. Denies any fevers or chills. Otherwise, there has been no change to his condition. PHYSICAL EXAMINATION: VITAL SIGNS: Afebrile, pulse 76, blood pressure 138/72, respirations 14, saturation 93% on 2 L nasal cannula. GENERAL: The patient is awake and alert, in no apparent distress. LUNGS: Good air entry on the left. There is decreased air entry at the right base with dullness to percussion. No wheezing or rhonchi appreciated. HEART: Normal rate and regular. ABDOMEN: Soft, nontender, nondistended. Bowel sounds are positive. MUSCULOSKELETAL: No cyanosis or clubbing. There is no pitting in the bilateral lower extremities. NEUROLOGIC: Grossly nonfocal. IMAGING STUDIES: Bedside ultrasound demonstrates pleural effusion on the right side. There is a dense atelectasis of the right lower lobe and much atelectasis of the right upper lobe. He has a little tethering in the inferior region to the diaphragm, but otherwise, it looks like a fairly simple layering effusion. LABORATORY DATA: LDH is 975, neutrophils 46%, lymphocytes 21%, 32% are nonhematologic cells. Glucose is normal, total protein 3.6. Respiratory culture was previously growing Actinomyces species. Body fluid cultures negative to date. ASSESSMENT: 1. Acute hypoxic respiratory failure. 2. Pleural effusion, neutrophilic exudate. 3. Community-acquired pneumonia with Actinomyces identified on sputum. 4. Pulmonary nodule, previously PET positive. DISCUSSION AND PLAN: We will perform a thoracentesis. Hopefully, this will help us identify whether or not a malignancy versus parapneumonic effusion is present. Actinomyces or other type of chronic infection is certainly still a possibility. That being said, we never identified that on the previous biopsy of the lung. Repeat CT scan will be pursued to see whether or not this previous pulmonary nodule takes on more of an infectious etiology. Critical Care will continue to follow very closely. Job ID: [id number]
--- NOTE | 2019-05-30 16:47 | CT ---
CT CHEST WITH CONTRAST CLINICAL INDICATION: Follow-up lung nodules. Patient is post thoracentesis. Shortness of breath. COMPARISON: CT thorax on 07/08/2018 FINDINGS: Aorta: Thoracic aortic stent graft is present. Vascular calcifications are seen in the thoracic aorta . Prominent vascular calcifications are also seen in the coronary arteries. Postsurgical changes related to CABG are noted. Lungs: A moderately large right pleural effusion and associated passive atelectasis is present. There has been interval enlargement of the previously seen right hilar mass which extends into the right upper lobe. Measurements are difficult to accurately obtain, but the mass grossly measures 8.7 cm tra nsverse x4.9 cm AP with greatest dimension on the prior study of approximately 5.8 cm transverse x4.1 cm AP. This mass abuts the mediastinum including the pericardium. There are prominent interstitial densities seen involving the left upper lobe with greater parenchyma l consolidation seen posterior aspect of the lingula adjacent to the major fissure which could be related to pneumonitis. There is decreased density material seen within the posterior aspect of the trachea and extending int o the right mainstem bronchus which could be related to debris and possibly secondary to aspiration. Findings in the left lung could potentially be related to aspiration pneumonitis. No left pleural effusion is seen. There is pleural thickening seen at the inferior aspect of the right lung base. Mediastinum: There is low density seen in the anterior mediastinum more prominent than on the prior e xam which may be related to fluid. No definite enlarged lymph nodes are appreciated based on this exam. Thyroid gland: Tiny subcentimeter hypodense nodules are noted in each lobe of thyroid gland which is too small to characterize. Osseous structures: No suspicious lytic or sclerotic osseous lesions are identified. Degenerative johanne nges are seen in the spine. Chest wall: No abnormality appreciated. Upper abdomen: Subcentimeter too small to characterize hypodense lesions are seen in each kidney. Den se vascular calcific lesions are seen in the visualized abdominal aorta as well as involving the visualized mesenteric vessels and renal arteries. There is question of an incompletely imaged small c alculus in the gallbladder. IMPRESSION: 1. Interval enlargement of the right hilar mass which extends anteriorly to abut the pleura as well a s extends anteriorly and medially to abut the mediastinum and pericardium. Prominent interstitial densities are also seen in the right upper lobe which could be related to lymphangitic spread of tumo r versus post obstructive pneumonitis. There is narrowing of the right upper lobe bronchus. 2. Moderately large right pleural effusion and associated passive atelectasis. 3. Interstitial and parenchymal densities in the region of the lingula and left upper lobe which may be related to infectious or inflammatory process. Aspiration pneumonitis is a possibility. There is debris seen within the posterior aspect of the trachea and in the right mainstem bronchus which sugge sts aspiration. 4. Pleural thickening right lung base. 5. Dense vascular calcifications.
--- NOTE | 2019-05-30 19:16 | OP ---
DATE OF PROCEDURE: 05/30/2019 SERVICE: Pulmonary Medicine. PROCEDURE PERFORMED: Right-sided pleural drainage with catheter insertion under ultrasound guidance. CONSENT: Risks and benefits of the procedure were discussed with the patient at bedside. All questions were answered and alternative options explained. MEDICATIONS USED: 1% lidocaine, no epinephrine, 8 mL. PREOPERATIVE DIAGNOSES: 1. Acute hypoxic respiratory failure. 2. Pleural effusion, not otherwise specified. POSTPROCEDURE DIAGNOSES: 1. Acute hypoxic respiratory failure. 2. Pleural effusion, not otherwise specified. DESCRIPTION OF PROCEDURE: Time-out was performed by the procedure team and the patient. The patient was positively identified using name and date of . The procedure site was marked. Vital sign monitoring was accomplished with noninvasive hemodynamic monitoring, pulse oximetry, and telemetry. In the seated position, the right posterior hemothorax was examined using ultrasound probe. The diaphragm and pleural fluid were easily identified. The skin was prepped and draped in sterile fashion and anesthetized with 1% lidocaine without epinephrine. A finder needle was inserted in the pleural space with return of cloudy milton colored fluid. A pleural drainage catheter was inserted in the same location. A total quantity of 1400 mL of pleural fluid was withdrawn by syringe pump technique. A sample was sent for analysis. Evacuation of fluid was terminated because we arrived at -22 cm of water pressure. At that point, he started having heaviness in his chest. The intact catheter was withdrawn on exhalation, and a sterile dressing was applied. The patient had stable vitals throughout the entire procedure. ESTIMATED BLOOD LOSS: Negligible. COMPLICATIONS: None. Job ID: [id number]
--- NOTE | 2019-05-30 21:31 | PDOC.HOSPP ---
- Subjective Encounter Date: 05/30/19 Encounter Time: 07:30 Subjective: still has sob and cough has not ambulated much and feels weak - Objective Vital Signs & Weight: Vital Signs (12 hours) Temp Pulse Resp BP BP Pulse Ox 05/30/19 21:19 128/70 05/30/19 20:00 85 05/30/19 19:36 76 16 89 L 05/30/19 19:21 98.1 F 75 18 128/70 100 05/30/19 18:02 97.6 F 79 18 121/77 97 05/30/19 14:32 76 19 05/30/19 11:44 97.6 F 84 20 113/64 95 05/30/19 10:48 72 17 Weight Admit Weight 150 lb 11.2 oz Weight 150 lb 11.2 oz I&O: 05/29/19 05/30/19 05/31/19 06:59 06:59 06:59 Intake Total 480 1170 Output Total 525 1120 Balance -45 50 Result Diagrams: 05/27/19 04:01 05/27/19 04:01 Hospitalist ROS - Medication Medications: Active Medications Generic Name Dose Route Start Last Admin Trade Name Freq PRN Reason Stop Dose Admin Acetaminophen 650 mg 05/26/19 16:43 05/30/19 16:05 Tylenol PO 650 mg Q4H PRN Administration Headache/Fever/Mild Pain (1-3) Albuterol/Ipratropium 3 ml 05/26/19 16:52 05/30/19 01:33 Duoneb NEB 3 ml Q4H PRN Administration SOB &/or Wheezing Albuterol/Ipratropium 3 ml 05/26/19 19:00 05/30/19 19:36 Duoneb NEB 3 ml [id number] TRINI Administration Amiodarone HCl 100 mg 05/28/19 09:00 05/30/19 21:17 Cordarone PO 100 mg BID TRINI Administration Amlodipine Besylate 10 mg 05/28/19 09:00 05/30/19 08:26 Norvasc PO 10 mg DAILY TRINI Administration Aspirin 81 mg 05/28/19 09:00 05/30/19 08:26 Ecotrin PO 81 mg DAILY TRINI Administration Clonidine 0.1 mg 05/27/19 21:00 05/30/19 21:19 Catapres PO 0.1 mg BID TRINI Administration Clonidine 0.1 mg 05/28/19 02:00 05/28/19 02:02 Catapres PO 0.1 mg Q12H PRN Administration SBP>160 Docusate Sodium 100 mg 05/27/19 21:00 05/30/19 21:17 Colace PO 100 mg BID TRINI Administration Enoxaparin Sodium 40 mg 05/27/19 09:00 05/30/19 08:27 Lovenox SC 40 mg 0900 [facility] Administration Famotidine 20 mg 05/26/19 21:00 05/30/19 21:17 Pepcid PO 20 mg BID [facility] Administration Levofloxacin 500 mg/ Device 100 mls @ 100 mls/hr 05/28/19 21:00 05/30/19 21: 16 IVPB 100 mls Q24HR TRINI Administration Isosorbide Mononitrate 30 mg 05/28/19 09:00 05/30/19 08:25 Imdur Er PO 30 mg DAILY [facility] Administration Lisinopril 20 mg 05/28/19 09:00 05/30/19 08:25 Zestril PO 20 mg DAILY [facility] Administration Metoprolol Tartrate 50 mg 05/28/19 09:00 05/30/19 08:27 Lopressor PO 50 mg DAILY [facility] Administration Mometasone Furoate/Formoterol Fumar 2 puff 05/27/19 18:30 05/30/19 19:37 Dulera 200 Mcg/5 Mcg Inhaler INH 2 puff BID-RT TRINI Administration Morphine Sulfate 1 mg 05/27/19 01:29 05/30/19 21:24 Morphine SLOW IVP 1 mg Q4H PRN Administration Moderate Pain (4-6) Polyethylene Glycol 17 gm 05/28/19 09:00 05/30/19 08:28 Miralax PO 17 gm DAILY [facility] Administration Senna/Docusate Sodium 2 tab 05/26/19 16:43 05/27/19 08:59 Senokot S PO 2 tab BIDPRN PRN Administration Constipation - Exam General Appearance: awake alert Eye: PERRL, anicteric sclera ENT: no oropharyngeal lesions, moist mucosa Neck: supple, no JVD Heart: RRR, no murmur Respiratory: no wheezes, no rales, rhonchi Gastrointestinal: soft, non-tender, non-distended, normal bowel sounds Extremities: no cyanosis, no edema Neurological: cranial nerve grossly intact, no focal deficits Psychiatric: normal affect, A&O x 3 Hosp A/P (1) COPD exacerbation Code(s): J44.1 - CHRONIC OBSTRUCTIVE PULMONARY DISEASE W (ACUTE) EXACERBATION Status: Acute (2) H/O thoracic aortic aneurysm repair Code(s): Z98.890 - OTHER SPECIFIED POSTPROCEDURAL STATES; Z86.79 - PERSONAL HISTORY OF OTHER DISEASES OF THE CIRCULATORY SYSTEM Status: Chronic (3) Dyslipidemia Code(s): E78.5 - HYPERLIPIDEMIA, UNSPECIFIED Status: Chronic (4) Hypertension Code(s): I10 - ESSENTIAL (PRIMARY) HYPERTENSION Status: Chronic Qualifiers: Hypertension type: essential hypertension Qualified Code(s): I10 - Essential (primary) hypertension (5) PAF (paroxysmal atrial fibrillation) Code(s): I48.0 - PAROXYSMAL ATRIAL FIBRILLATION Status: Chronic (6) PNA (pneumonia) Code(s): J18.9 - PNEUMONIA, UNSPECIFIED ORGANISM Status: Acute Qualifiers: Pneumonia type: due to unspecified organism Laterality: right (7) Parapneumonic effusion Code(s): J18.9 - PNEUMONIA, UNSPECIFIED ORGANISM; J91.8 - PLEURAL EFFUSION IN OTHER CONDITIONS CLASSIFIED ELSEWHERE Status: Acute - Plan s/p drainage of 1400ml of parapneumonic effusion. is on nebs, levaquin, steroids dulcolax suppository, if needed may give fleets enema, is on oral agents to ambulate as tolerated await cytology on pleural fluid to r/o malignancy, CT chest shows findings s/o of malignancy chronic b/l lung nodule, prior bronch/bx 07/2018 was -ve for cancer but PET was +ve on right lung nodule hemostable
[2019-05-31] MEDS: Morphine 2 MG/ML SYRINGE SLOW IVP PRN ×2 (04:17→10:58)
[2019-05-31 06:21] LABS: #Eosinphils 0.1 thou/uL (0.0-0.7); #Lymphocytes 0.7 thou/uL (1.20-3.40); #Monocytes 1.1 thou/uL (0.11-0.59); #Neutrophils 8.1 thou/uL (1.40-6.50); %Basophils 0.3 % (0.0-1.0); %Eosinophils 1.4 % (0.0-10.0); %Lymphocytes 7.3 % (21.0-51.0); %Neutrophils 80.1 % (42.0-75.0); Hemoglobin 12.2 g/dL (14.0-18.0); Mean Corpuscular HGB CONC 31.9 g/dL (32.0-36.0); Mean Corpuscular Hemoglobin 30.2 pg (27.0-31.0); Mean Corpuscular Volume 94.7 fL (78.0-98.0); Mean Platelet Volume 7.3 fL (7.4-10.4); Platelet Count 280 thou/uL (130-400); RBC Distribution Width 12.5 % (11.5-14.5); Red Blood Cell (RBC) Count 4.06 mill/uL (4.70-6.10); White Blood Cell (WBC) Count 10.2 thou/uL (4.8-10.8)
[2019-05-31 06:36] LABS: Anion Gap 12 mmol/L (10-20); BUN (Urea Nitrogen) 22 mg/dL (8.4-25.7); Calc. Creatinine Clearance 72 mL/min (70-130); Calcium 9.7 mg/dL (7.8-10.44); Carbon Dioxide 25 mmol/L (23-31); Chloride 102 mmol/L (98-107); Estimated GFR-MDRD Greater than 90; Glucose 96 mg/dL (80-115); Potassium 4.7 mmol/L (3.5-5.1); Sodium 134 mmol/L (136-145)
[2019-05-31] MEDS: Mometasone/Formoterol 120 PUFF INHALER INH SCH ×2 (07:01→18:44)
--- NOTE | 2019-05-31 07:42 | PRG ---
DATE OF SERVICE: 05/31/2019 SERVICE: Pulmonary Medicine. INTERVAL HISTORY: The patient is doing fine from Respiratory standpoint. Breathing comfortably. Denies any current chest discomfort, nausea, or vomiting. His shortness of breath has actually significantly improved. Otherwise, there has been no interval change to his condition. PHYSICAL EXAMINATION: VITAL SIGNS: Afebrile. Pulse 73, blood pressure 128/73, respirations 18, saturation 98%, currently on 3 L nasal cannula. GENERAL: The patient is awake and alert, in no apparent distress. LUNGS: Decent air entry on the left. There is improved air entry at the right base. No prolonged expiratory phase appreciated. Rhonchi are present, but no crackles. HEART: Normal rate and regular. ABDOMEN: Soft, nontender, and nondistended. Bowel sounds are positive. MUSCULOSKELETAL: No cyanosis or clubbing. No pitting in the bilateral lower extremities. NEUROLOGIC: Grossly nonfocal. LABORATORY DATA: WBC 10.2, hemoglobin 12.2, platelets 280,000 and stable. Basic metabolic profile is essentially unremarkable. Creatinine is downtrending to 0.94. Urinalysis is unremarkable. PH 7.7, LDH is 900, glucose normal, total protein 3.6. Non hematologic cells represent 32% of the cells, but it is predominantly neutrophil. Strep and Legionella urine antigens are unremarkable. Actinomyces species are identified in the respiratory cultures, which may be real, but could also represent a contaminant. IMAGING DATA: CT of the chest demonstrates interval enlargement of the right hilar mass. It now abuts the pleural surface. Additionally, there is an interval development of a large pleural effusion. Dense vascular calcifications are present. There is likely inspissated mucus present in some of the airways. Dense atelectasis is present over the right lower lobe. The pulmonary nodule versus infiltrate is present. It is not clear, if this is a postobstructive disease process, or whether or not we are dealing with enlargement of the previously known nodule/mass. ASSESSMENT: 1. Acute hypoxic respiratory failure. 2. Pleural effusion, neutrophilic exudate. 3. Community-acquired pneumonia with Actinomyces identified in sputum. 4. Pulmonary nodule, previously PET-positive. DISCUSSION AND PLAN: It is not clear to me whether or not the Actinomyces represents an active infection or simple contaminant. Recent bronchoscopy did not grow the Actinomyces species. If this is considered organism, a very protracted course of antibiotic would be required, preferably penicillin. That being said, the patient notes penicillin allergy. We are awaiting on the pathology on the pleural fluid. If there is malignant cells there, no additional investigation will be warranted there. That being said, because it is neutrophil predominant, I am concern that it could represent a complicated parapneumonic pleural effusion given the appearance on the CT scan. This may require surgical debridement. Unfortunately, repeat bronchoscopy may need to be considered in 24 to 48 hours. I will have Infectious Disease weigh-in on this issue. Pulmonary/Critical Care will certainly continue to follow along while the patient remains inhouse. I will add an HIV to tomorrow morning's laboratories. Job ID: [id number]
[2019-05-31 08:14] LABS: HIV (1/2) Antibody/Antigen Non-Reactive (NonReactive); HIV 1/2 INDEX 0.09 S/CO (<1.00)
[2019-05-31] MEDS: cloNIDine 0.1 MG TAB PO SCH ×2 (08:39→20:42)
[2019-05-31] MEDS: Aspirin 81 mg Enteric Coated Tablet PO SCH (08:39)
[2019-05-31] MEDS: Lisinopril 20 MG TAB PO SCH (08:39)
[2019-05-31] MEDS: Amlodipine 10 MG TAB PO SCH (08:40)
[2019-05-31] MEDS: Famotidine 20 MG TAB PO SCH ×2 (08:40→20:42)
[2019-05-31] MEDS: Amiodarone 200 MG TAB PO SCH ×2 (08:40→20:41)
[2019-05-31] MEDS: Metoprolol Tartrate 50 MG TAB PO SCH (08:40)
[2019-05-31] MEDS: Isosorbide Mononitrate (ER) 30 MG TAB PO SCH (08:40)
[2019-05-31] MEDS: Docusate 100 MG CAP PO SCH ×2 (08:41→20:41)
[2019-05-31] MEDS: Polyethylene Glycol 3350 17 GM Packet PO SCH (08:41)
[2019-05-31] MEDS: Enoxaparin Sodium 40 MG/0.4 ML SYRINGE SC SCH (08:41)
[2019-05-31] MEDS: Ibuprofen 200 MG TAB PO PRN ×2 (11:36→20:41)
[2019-05-31] MEDS: cefTRIAXone\\ROCEPHIN 2 GM in Sodium Chloride 0.9% 100 ML IVPB SCH ×2 (13:00→14:44)
--- NOTE | 2019-05-31 13:22 | PDOC.HOSPP ---
- Subjective Encounter Date: 05/31/19 Encounter Time: 09:30 Subjective: sob is better, says he is ambulating in room is on humidified O2 at 2lts - Objective Vital Signs & Weight: Vital Signs (12 hours) Temp Pulse Resp BP BP Pulse Ox 05/31/19 11:18 97.8 F 78 16 114/65 95 05/31/19 11:03 84 20 167/71 H 05/31/19 10:35 71 14 05/31/19 08:40 84 135/71 05/31/19 08:39 135/71 05/31/19 07:44 100 05/31/19 07:32 97.8 F 84 18 135/71 93 L 05/31/19 06:58 83 14 89 L 05/31/19 04:15 98.3 F 73 18 128/73 98 Weight Admit Weight 150 lb 11.2 oz Weight 150 lb 11.2 oz I&O: 05/30/19 05/31/19 06/01/19 06:59 06:59 06:59 Intake Total 1170 520 Output Total 1120 850 Balance 50 -330 Result Diagrams: 05/31/19 06:03 05/31/19 06:03 Hospitalist ROS - Medication Medications: Active Medications Generic Name Dose Route Start Last Admin Trade Name Freq PRN Reason Stop Dose Admin Acetaminophen 650 mg 05/26/19 16:43 05/30/19 22:51 Tylenol PO 650 mg Q4H PRN Administration Headache/Fever/Mild Pain (1-3) Albuterol/Ipratropium 3 ml 05/26/19 16:52 05/30/19 23:09 Duoneb NEB 3 ml Q4H PRN Administration SOB &/or Wheezing Albuterol/Ipratropium 3 ml 05/26/19 19:00 05/31/19 10:35 Duoneb NEB 3 ml [id number] TRINI Administration Amiodarone HCl 100 mg 05/28/19 09:00 05/31/19 08:40 Cordarone PO 100 mg BID TRINI Administration Amlodipine Besylate 10 mg 05/28/19 09:00 05/31/19 08:40 Norvasc PO 10 mg DAILY TRINI Administration Aspirin 81 mg 05/28/19 09:00 05/31/19 08:39 Ecotrin PO 81 mg DAILY TRINI Administration Clonidine 0.1 mg 05/27/19 21:00 05/31/19 08:39 Catapres PO 0.1 mg BID TRINI Administration Clonidine 0.1 mg 05/28/19 02:00 05/28/19 02:02 Catapres PO 0.1 mg Q12H PRN Administration SBP>160 Docusate Sodium 100 mg 05/27/19 21:00 05/31/19 08:41 Colace PO 100 mg BID TRINI Administration Enoxaparin Sodium 40 mg 05/27/19 09:00 05/31/19 08:41 Lovenox SC 40 mg 09 TRINI Administration Famotidine 20 mg 05/26/19 21:00 05/31/19 08:40 Pepcid PO 20 mg BID [facility] Administration Ibuprofen 400 mg 05/31/19 11:21 05/31/19 11:36 Motrin PO 400 mg TID PRN Administration Mild Pain (1-3) Isosorbide Mononitrate 30 mg 05/28/19 09:00 05/31/19 08:40 Imdur Er PO 30 mg DAILY [facility] Administration Lisinopril 20 mg 05/28/19 09:00 05/31/19 08:39 Zestril PO 20 mg DAILY [facility] Administration Metoprolol Tartrate 50 mg 05/28/19 09:00 05/31/19 08:40 Lopressor PO 50 mg DAILY [facility] Administration Mometasone Furoate/Formoterol Fumar 2 puff 05/27/19 18:30 05/31/19 07:01 Dulera 200 Mcg/5 Mcg Inhaler INH 2 puff BID-RT TRINI Administration Morphine Sulfate 1 mg 05/27/19 01:29 05/31/19 10:58 Morphine SLOW IVP 1 mg Q4H PRN Administration Moderate Pain (4-6) Polyethylene Glycol 17 gm 05/28/19 09:00 05/31/19 08:41 Miralax PO 17 gm DAILY [facility] Administration Senna/Docusate Sodium 2 tab 05/26/19 16:43 05/27/19 08:59 Senokot S PO 2 tab BIDPRN PRN Administration Constipation - Exam General Appearance: awake alert Eye: PERRL, anicteric sclera ENT: no oropharyngeal lesions, moist mucosa Neck: supple, no JVD Heart: RRR, no murmur Respiratory: no wheezes, no rales, rhonchi Gastrointestinal: soft, non-tender, non-distended, normal bowel sounds Extremities: no cyanosis, no edema Neurological: cranial nerve grossly intact, no focal deficits Psychiatric: normal affect, A&O x 3 Hosp A/P (1) COPD exacerbation Code(s): J44.1 - CHRONIC OBSTRUCTIVE PULMONARY DISEASE W (ACUTE) EXACERBATION Status: Acute (2) H/O thoracic aortic aneurysm repair Code(s): Z98.890 - OTHER SPECIFIED POSTPROCEDURAL STATES; Z86.79 - PERSONAL HISTORY OF OTHER DISEASES OF THE CIRCULATORY SYSTEM Status: Chronic (3) Dyslipidemia Code(s): E78.5 - HYPERLIPIDEMIA, UNSPECIFIED Status: Chronic (4) Hypertension Code(s): I10 - ESSENTIAL (PRIMARY) HYPERTENSION Status: Chronic Qualifiers: Hypertension type: essential hypertension Qualified Code(s): I10 - Essential (primary) hypertension (5) PAF (paroxysmal atrial fibrillation) Code(s): I48.0 - PAROXYSMAL ATRIAL FIBRILLATION Status: Chronic (6) PNA (pneumonia) Code(s): J18.9 - PNEUMONIA, UNSPECIFIED ORGANISM Status: Acute Qualifiers: Pneumonia type: due to unspecified organism Laterality: right (7) Parapneumonic effusion Code(s): J18.9 - PNEUMONIA, UNSPECIFIED ORGANISM; J91.8 - PLEURAL EFFUSION IN OTHER CONDITIONS CLASSIFIED ELSEWHERE Status: Acute - Plan s/p drainage of 1400ml of parapneumonic effusion 05/30/2019. is on nebs, levaquin was switched to ceftriaxone, steroids dulcolax suppository prn, is on oral agents to ambulate as tolerated await cytology on pleural fluid to r/o malignancy, CT chest shows findings s/o of malignancy chronic b/l lung nodule, prior bronch/bx 07/2018 was -ve for cancer but PET was +ve on right lung nodule hemostable has actinomyces growing in sputum, ?contaminant
--- NOTE | 2019-05-31 14:06 | SPC ---
Ultrasound and Fluoroscopic guided left upper extremity PICC placement HISTORY: Pneumonia, patient needs long-term IV antibiotics. FINDINGS: Informed consent obtained prior to the procedure. An appropriate access site was determined with ultrasound guidance. The area was then meticulously pr epped and draped in usual sterile fashion. Skin overlying the left upper extremity brachial vein anesthetized with 1% buffered lidocaine. Utiliz ing direct sonographic guidance, vascular access is obtained via the left upper extremity brachial vein, and an 0.018in guidewire was advanced to the cavoatrial junction. Intravascular length is calcu lated at 45 cm, and the PICC is cut accordingly. Needle is removed and replaced with a peel-away sheath. The PICC was advanced over the wire. Wire and peel-away sheath were removed. The tip of the catheter overlies the cavoatrial junction. The catheter was accessed and aspirated/flushed easily. Exposure data: 0.3 minutes of fluoroscopic time 1000 996 mGy centimeter squared FINDINGS: Technically successful placement of a 45 centimeter single lumen 5 Vietnamese left upper extremity PICC l ine. IMPRESSION: Successful ultrasound guided placement of a left upper extremity PICC.
--- NOTE | 2019-05-31 16:15 | CON ---
DATE OF CONSULTATION: 05/31/2019 REASON FOR CONSULTATION: Lung lesion with possibility of actinomycosis. HISTORY OF PRESENT ILLNESS: A 69-year-old patient who has had numerous cardiac interventions in the recent past including bypass graft surgery and aortic arch replacement in [place] for management of aortic dissection. He developed an area of abnormality in the right hilum with mass lesion, which was positive on a PET scan. The bronchoscopy was nondiagnostic. He continued to have respiratory symptoms with purulent sputum production. He was admitted in September, and the impression was community-acquired pneumonia, enlarging hilar mass, possible malignancy with hypercalcemia, and a surgical procedure was considered, but not carried out. In 12/2018, Dr. Khan evaluated the patient after an admission for COPD exacerbation and the idea was to carry out another bronchoscopy, but he declined. Therefore , he was given antimicrobials and methylprednisolone. He continued to present with respiratory symptoms with purulent sputum production, weight loss, and worsening dyspnea, so he presented to the emergency room again just a few days ago. He did have any hemoptysis documented. No headaches. No visual symptoms. No back pain. No joint symptoms. He described pain, which was pleuritic in the right lower lateral anterior chest area of recent onset. He had some night sweats intermittently. PAST MEDICAL HISTORY: 1. COPD. 2. Chronic smoking until few years ago. 3. Coronary artery disease with bypass graft surgery here in the hospital and then aortic dissection with aortic arch replacement in [place]. SOCIAL HISTORY: Quit drinking, used to drink heavily. Quit smoking a few years ago. 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 FAMILY HISTORY: Noncontributory. ALLERGIES: CARDIZEM WITH HIVES. HE ALSO HAD PENICILLIN ALLERGY DESCRIBED, NOT CLEAR IF THE HIVES ARE RELATED TO THE PENICILLIN OR TO DILTIAZEM. MEDICATIONS: The current medication list includes; 1. Tylenol. 2. DuoNeb. 3. Cordarone. 4. Norvasc. 5. Ecotrin. 6. Catapres. 7. Pepcid. 8. Motrin. 9. Levofloxacin. 10. Inhalers. 11. Ondansetron. PHYSICAL EXAMINATION: VITAL SIGNS: Temperature has been normal in the hospital stay, BP 114/65, pulse 78, respirations 16, and O2 saturation 95. SKIN: No areas of skin breakdown. The patient has a peripheral IV access and is voiding in the urinal. GENERAL: Pleasant gentleman, in no acute distress, appears chronically ill. HEENT: No lymphadenopathy. Temporal wasting is noted. Oral cavity with only a few remaining teeth with marked decay and gum disease. No other oral lesion noted. NECK: Supple. No jugular vein distention or carotid bruits. LUNGS: With scattered rhonchi and a few crackles, particularly in the right side, but also on the left. Diminished breath sounds on the right side at the base. GENITOURINARY: No bladder distention. No genital abnormalities. MUSCULOSKELETAL: No joint inflammatory activity noted. Some osteoarthrosis noted in knees and ankles. Pulses are 1+ in dorsalis pedis. Plantar responses are flexor. Strength in upper and lower extremities is preserved. NEUROLOGIC: Cognitive function appears to be intact. Speech is normal. LABORATORY DATA: White cell count was 9.3, hemoglobin 13, platelets 324 with 83 % neutrophils. Sodium 133 and creatinine 1.17. Liver profile within normal limits. Albumin 3.3. Urinalysis was normal except for glycosuria. Pleural fluid with 2400 wbc's with 46% neutrophils, 21% lymphocytes, 32% non-hematological cells. LDH 975 and protein 3.6. HIV nonreactive. Legionella and Strep pneumoniae antigen in the urine nonreactive. Microbiology; we have acid-fast bacilli culture final, negative from bronchial washing. There is a Haemophilus influenzae from respiratory culture from bronchial washing from the August, and actinomyces now May, this is identified to the species level by the lab, they did not report it, but it is graevenitzii. In addition to that, in the gram stain, gram-positive cocci in pairs and clusters, moderate wbc's seen and a few epithelial cells, some gram-negative rods. IMAGING STUDIES: A chest CT scan done on 05/30, which demonstrate moderately large right pleural effusion, passive atelectases, enlargement of the right hilar mass , which extends into the right upper lobe, grossly measures 8.7 x 4.9, prominent interstitial densities in the left upper lobe, and the pathology with August surgical specimen with benign tissue, focal hemorrhage. No granuloma. No viral cytopathic effect. PAS stain negative for fungal pathogens. There is a pending cytology from the thoracentesis specimen. ASSESSMENT: 1. Coronary artery disease with prior bypass graft surgery with aortic dissection with prior repair and replacement of the aortic arch. 2. Chronic smoking with previous cessation a few years ago. 3. History of alcohol abuse in the past. 4. Poor dentition. 5. Expanding right lung mass with now associated pleural effusion, which is exudative. 6. Findings in the sputum cultures. DISCUSSION: The hypothesis of a chronic infection seems to be the more likely scenario here as opposed to malignancy or vasculitis. Fungal and mycobacterial pathogens appear to be evaluated and the results are negative, so we were left with this actinomyces growth in his respiratory specimen in large amounts. 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 Due to the extensiveness of the process as well as a history of type 1 hypersensitivity reaction to penicillin, we will advise IV Rocephin 2 g daily for a few weeks and then followed by oral cephalosporin. I could also try a challenge with amoxicillin while he is here in the hospital, which would facilitate conversion to oral amoxicillin in the outpatient setting for continuation of treatment, which will be protracted probably at least 3-6 months. The endpoint will be improvement/resolution of the imaging abnormalities, weight gain, and resolution of the clinical symptoms. Job ID: [id number] MTDD
[2019-06-01] MEDS: Morphine 2 MG/ML SYRINGE SLOW IVP PRN (03:03)
[2019-06-01] MEDS: Acetaminophen 325 MG TAB PO PRN ×2 (06:28→20:50)
[2019-06-01] MEDS: Mometasone/Formoterol 120 PUFF INHALER INH SCH ×2 (06:29→18:57)
[2019-06-01] MEDS: cloNIDine 0.1 MG TAB PO SCH ×2 (08:16→20:48)
[2019-06-01] MEDS: Amiodarone 200 MG TAB PO SCH ×2 (08:16→20:49)
[2019-06-01] MEDS: Aspirin 81 mg Enteric Coated Tablet PO SCH (08:16)
[2019-06-01] MEDS: Polyethylene Glycol 3350 17 GM Packet PO SCH (08:17)
[2019-06-01] MEDS: Famotidine 20 MG TAB PO SCH ×2 (08:17→20:49)
[2019-06-01] MEDS: Enoxaparin Sodium 40 MG/0.4 ML SYRINGE SC SCH (08:17)
[2019-06-01] MEDS: Docusate 100 MG CAP PO SCH ×2 (08:17→20:50)
[2019-06-01] MEDS: Isosorbide Mononitrate (ER) 30 MG TAB PO SCH (08:17)
[2019-06-01] MEDS: Metoprolol Tartrate 50 MG TAB PO SCH (08:17)
[2019-06-01] MEDS: Lisinopril 20 MG TAB PO SCH (08:17)
[2019-06-01] MEDS: Amlodipine 10 MG TAB PO SCH (08:17)
[2019-06-01] MEDS: cefTRIAXone\\ROCEPHIN 2 GM in Sodium Chloride 0.9% 100 ML IVPB SCH (12:10)
[2019-06-01] MEDS: Ibuprofen 200 MG TAB PO PRN ×2 (12:10→20:47)
--- NOTE | 2019-06-01 12:15 | PDOC.HOSPP ---
- Subjective Encounter Date: 06/01/19 Encounter Time: 08:00 Subjective: breathing better, is amb in room ate his breakfast slept better last night - Objective Vital Signs & Weight: Vital Signs (12 hours) Temp Pulse Resp BP Pulse Ox 06/01/19 11:48 97.9 F 71 16 107/51 L 95 06/01/19 10:04 79 16 95 06/01/19 08:20 93 L 06/01/19 08:05 97.9 F 80 18 123/70 93 L 06/01/19 06:26 75 18 94 L 06/01/19 04:00 97.8 F 79 18 116/61 92 L Weight Admit Weight 150 lb 11.2 oz Weight 150 lb 11.2 oz I&O: 05/31/19 06/01/19 06/02/19 06:59 06:59 06:59 Intake Total 520 510 Output Total 850 550 Balance -330 -40 Result Diagrams: 05/31/19 06:03 05/31/19 06:03 Hospitalist ROS - Medication Medications: Active Medications Generic Name Dose Route Start Last Admin Trade Name Freq PRN Reason Stop Dose Admin Acetaminophen 650 mg 05/26/19 16:43 06/01/19 06:28 Tylenol PO 650 mg Q4H PRN Administration Headache/Fever/Mild Pain (1-3) Albuterol/Ipratropium 3 ml 05/26/19 16:52 05/30/19 23:09 Duoneb NEB 3 ml Q4H PRN Administration SOB &/or Wheezing Albuterol/Ipratropium 3 ml 05/26/19 19:00 06/01/19 10:04 Duoneb NEB 3 ml [id number] TRINI Administration Amiodarone HCl 100 mg 05/28/19 09:00 06/01/19 08:16 Cordarone PO 100 mg BID [facility] Administration Amlodipine Besylate 10 mg 05/28/19 09:00 06/01/19 08:17 Norvasc PO 10 mg DAILY [facility] Administration Aspirin 81 mg 05/28/19 09:00 06/01/19 08:16 Ecotrin PO 81 mg DAILY [facility] Administration Clonidine 0.1 mg 05/27/19 21:00 06/01/19 08:16 Catapres PO 0.1 mg BID [facility]I Administration Clonidine 0.1 mg 05/28/19 02:00 05/28/19 02:02 Catapres PO 0.1 mg Q12H PRN Administration SBP>160 Docusate Sodium 100 mg 05/27/19 21:00 06/01/19 08:17 Colace PO 100 mg BID [facility]I Administration Enoxaparin Sodium 40 mg 05/27/19 09:00 06/01/19 08:17 Lovenox SC 40 mg 0900 TRINI Administration Famotidine 20 mg 05/26/19 21:00 06/01/19 08:17 Pepcid PO 20 mg BID [facility] Administration Ceftriaxone Sodium 2 gm/ 100 mls @ 200 mls/hr 05/31/19 13:00 06/01/19 12:10 Sodium Chloride IVPB 100 mls Q24HR TRINI Administration Ibuprofen 400 mg 05/31/19 11:21 06/01/19 12:10 Motrin PO 400 mg TID PRN Administration Mild Pain (1-3) Isosorbide Mononitrate 30 mg 05/28/19 09:00 06/01/19 08:17 Imdur Er PO 30 mg DAILY [facility] Administration Lisinopril 20 mg 05/28/19 09:00 06/01/19 08:17 Zestril PO 20 mg DAILY [facility] Administration Metoprolol Tartrate 50 mg 05/28/19 09:00 06/01/19 08:17 Lopressor PO 50 mg DAILY [facility] Administration Mometasone Furoate/Formoterol Fumar 2 puff 05/27/19 18:30 06/01/19 06:29 Dulera 200 Mcg/5 Mcg Inhaler INH 2 puff BID-RT [facility]INI Administration Morphine Sulfate 1 mg 05/27/19 01:29 06/01/19 03:03 Morphine SLOW IVP 1 mg Q4H PRN Administration Moderate Pain (4-6) Polyethylene Glycol 17 gm 05/28/19 09:00 06/01/19 08:17 Miralax PO 17 gm DAILY [facility] Administration Senna/Docusate Sodium 2 tab 05/26/19 16:43 05/27/19 08:59 Senokot S PO 2 tab BIDPRN PRN Administration Constipation - Exam General Appearance: awake alert Eye: PERRL, anicteric sclera ENT: no oropharyngeal lesions, moist mucosa Neck: supple, no JVD Heart: RRR, no murmur Respiratory: no wheezes, no rales, rhonchi Gastrointestinal: soft, non-tender, non-distended, normal bowel sounds Extremities: no cyanosis, no edema Neurological: cranial nerve grossly intact, no focal deficits Psychiatric: normal affect, A&O x 3 Hosp A/P (1) COPD exacerbation Code(s): J44.1 - CHRONIC OBSTRUCTIVE PULMONARY DISEASE W (ACUTE) EXACERBATION Status: Acute (2) H/O thoracic aortic aneurysm repair Code(s): Z98.890 - OTHER SPECIFIED POSTPROCEDURAL STATES; Z86.79 - PERSONAL HISTORY OF OTHER DISEASES OF THE CIRCULATORY SYSTEM Status: Chronic (3) Dyslipidemia Code(s): E78.5 - HYPERLIPIDEMIA, UNSPECIFIED Status: Chronic (4) Hypertension Code(s): I10 - ESSENTIAL (PRIMARY) HYPERTENSION Status: Chronic Qualifiers: Hypertension type: essential hypertension Qualified Code(s): I10 - Essential (primary) hypertension (5) PAF (paroxysmal atrial fibrillation) Code(s): I48.0 - PAROXYSMAL ATRIAL FIBRILLATION Status: Chronic (6) PNA (pneumonia) Code(s): J18.9 - PNEUMONIA, UNSPECIFIED ORGANISM Status: Acute Qualifiers: Pneumonia type: due to unspecified organism Laterality: right (7) Parapneumonic effusion Code(s): J18.9 - PNEUMONIA, UNSPECIFIED ORGANISM; J91.8 - PLEURAL EFFUSION IN OTHER CONDITIONS CLASSIFIED ELSEWHERE Status: Acute - Plan s/p drainage of 1400ml of parapneumonic effusion 05/30/2019. is on nebs, ceftriaxone, got picc line 05/31/2019 dulcolax suppository prn, is on oral agents to ambulate as tolerated await cytology on pleural fluid to r/o malignancy, CT chest shows findings s/o of malignancy chronic b/l lung nodule, prior bronch/bx 07/2018 was -ve for cancer but PET was +ve on right lung nodule hemostable has actinomyces growing in sputum swing bed in am is on 2 lts nc O2
--- NOTE | 2019-06-01 16:20 | PRG ---
DATE OF SERVICE: 06/01/2019 Marquis Bautista says he is feeling slightly a little bit better. Culture results have been reviewed. Dr. Cisse is recommending treating for actinomycosis given the evidence at hand and has recommended Rocephin. He has a PICC line in now. He wants to go back over to [facility], where he did his rehab after his aneurysm surgery. His lungs are distant, clear. Pathology on his pleural fluid is pending. He had close to 2 L of pleural fluid pulled out by Dr. Goins. It is clearly exudative with the neutrophil predominance. It does not look like the pH was done in the blood gas machine now as the pH is reported as 7.7. In any event, he will continue with IV antimicrobial therapy with initiation of planning for long-term antimicrobial therapy via his PICC line. Job ID: [id number]
[2019-06-02] MEDS: Morphine 2 MG/ML SYRINGE SLOW IVP PRN ×3 (00:31→12:09)
[2019-06-02] MEDS: Acetaminophen 325 MG TAB PO PRN (03:28)
[2019-06-02] MEDS: Ibuprofen 200 MG TAB PO PRN ×2 (05:05→20:19)
[2019-06-02] MEDS: Mometasone/Formoterol 120 PUFF INHALER INH SCH ×2 (06:45→18:38)
[2019-06-02] MEDS: Enoxaparin Sodium 40 MG/0.4 ML SYRINGE SC SCH (08:03)
[2019-06-02] MEDS: cloNIDine 0.1 MG TAB PO SCH ×2 (08:03→20:18)
[2019-06-02] MEDS: Lisinopril 20 MG TAB PO SCH (08:03)
[2019-06-02] MEDS: Polyethylene Glycol 3350 17 GM Packet PO SCH (08:03)
[2019-06-02] MEDS: Aspirin 81 mg Enteric Coated Tablet PO SCH (08:03)
[2019-06-02] MEDS: Amiodarone 200 MG TAB PO SCH ×2 (08:04→20:19)
[2019-06-02] MEDS: Docusate 100 MG CAP PO SCH ×2 (08:04→20:18)
[2019-06-02] MEDS: Famotidine 20 MG TAB PO SCH ×2 (08:04→20:20)
[2019-06-02] MEDS: Metoprolol Tartrate 50 MG TAB PO SCH (08:04)
[2019-06-02] MEDS: Isosorbide Mononitrate (ER) 30 MG TAB PO SCH (08:04)
[2019-06-02] MEDS: Amlodipine 10 MG TAB PO SCH (08:06)
[2019-06-02] MEDS: cefTRIAXone\\ROCEPHIN 2 GM in Sodium Chloride 0.9% 100 ML IVPB SCH (12:09)
--- NOTE | 2019-06-02 12:49 | PRG ---
DATE OF SERVICE: 06/02/2019 SUBJECTIVE: The patient is doing relatively well all things considered. He is on IV antibiotics for presumed actinomycosis pleural effusion. He had no acute complaints today. OBJECTIVE: VITAL SIGNS: Temperature 98.4, pulse 74, respirations 16, O2 saturation 91% on 3 L. HEENT: Unremarkable. NECK: No adenopathy or JVD. CHEST: Clear. CARDIAC: S1, S2. Regular. ABDOMEN: Soft. EXTREMITIES: No edema. 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 PLAN: The patient will be on IV antibiotics for at least a couple of weeks and thereafter on oral cephalosporin according Dr. Cisse' note. We will have to follow this effusion with serial x-rays as an outpatient. Job ID: [id number]
--- NOTE | 2019-06-02 14:03 | PDOC.HOSPP ---
- Subjective Encounter Date: 06/02/19 Encounter Time: 09:00 Subjective: no sob, feels better says he has been eating better from 2 days is ambulating in room - Objective Vital Signs & Weight: Vital Signs (12 hours) Temp Pulse Resp BP Pulse Ox 06/02/19 12:00 97.7 F 75 18 111/53 L 98 06/02/19 10:32 74 16 91 L 06/02/19 08:05 99 06/02/19 07:12 98.4 F 75 18 115/67 99 06/02/19 06:48 90 L 06/02/19 06:47 74 16 90 L 06/02/19 06:45 74 16 90 L 06/02/19 04:18 84 22 H Weight Admit Weight 150 lb 11.2 oz Weight 150 lb 11.2 oz I&O: 06/01/19 06/02/19 06/03/19 06:59 06:59 06:59 Intake Total 510 1480 Output Total 550 1000 Balance -40 480 Result Diagrams: 05/31/19 06:03 05/31/19 06:03 Hospitalist ROS - Medication Medications: Active Medications Generic Name Dose Route Start Last Admin Trade Name Freq PRN Reason Stop Dose Admin Acetaminophen 650 mg 05/26/19 16:43 06/02/19 03:28 Tylenol PO 650 mg Q4H PRN Administration Headache/Fever/Mild Pain (1-3) Albuterol/Ipratropium 3 ml 05/26/19 16:52 06/02/19 04:18 Duoneb NEB 3 ml Q4H PRN Administration SOB &/or Wheezing Albuterol/Ipratropium 3 ml 05/26/19 19:00 06/02/19 10:32 Duoneb NEB 3 ml [id number] TRINI Administration Amiodarone HCl 100 mg 05/28/19 09:00 06/02/19 08:04 Cordarone PO 100 mg BID TR[facility]I Administration Amlodipine Besylate 10 mg 05/28/19 09:00 06/02/19 08:06 Norvasc PO Not Given DAILY TRINI Aspirin 81 mg 05/28/19 09:00 06/02/19 08:03 Ecotrin PO 81 mg DAILY [facility]I Administration Bisacodyl 10 mg 05/27/19 17:15 06/01/19 20:50 Dulcolax PO 10 mg DAILYPRN TR[facility]I Administration Clonidine 0.1 mg 05/27/19 21:00 06/02/19 08:03 Catapres PO Not Given BID TR[facility]I Clonidine 0.1 mg 05/28/19 02:00 05/28/19 02:02 Catapres PO 0.1 mg Q12H PRN Administration SBP>160 Docusate Sodium 100 mg 05/27/19 21:00 06/02/19 08:04 Colace PO 100 mg BID TR[facility] Administration Enoxaparin Sodium 40 mg 05/27/19 09:00 06/02/19 08:03 Lovenox SC 40 mg 0900 TRINI Administration Famotidine 20 mg 05/26/19 21:00 06/02/19 08:04 Pepcid PO 20 mg BID [facility] Administration Ceftriaxone Sodium 2 gm/ 100 mls @ 200 mls/hr 05/31/19 13:00 06/02/19 12:09 Sodium Chloride IVPB 100 mls Q24HR TRINI Administration Ibuprofen 400 mg 05/31/19 11:21 06/02/19 05:05 Motrin PO 400 mg TID PRN Administration Mild Pain (1-3) Isosorbide Mononitrate 30 mg 05/28/19 09:00 06/02/19 08:04 Imdur Er PO 30 mg DAILY [facility] Administration Lisinopril 20 mg 05/28/19 09:00 06/02/19 08:03 Zestril PO Not Given DAILY [facility] Metoprolol Tartrate 50 mg 05/28/19 09:00 06/02/19 08:04 Lopressor PO 50 mg DAILY [facility] Administration Mometasone Furoate/Formoterol Fumar 2 puff 05/27/19 18:30 06/02/19 06:45 Dulera 200 Mcg/5 Mcg Inhaler INH 2 puff BID-RT [facility] Administration Morphine Sulfate 1 mg 05/27/19 01:29 06/02/19 12:09 Morphine SLOW IVP 1 mg Q4H PRN Administration Moderate Pain (4-6) Polyethylene Glycol 17 gm 05/28/19 09:00 06/02/19 08:03 Miralax PO 17 gm DAILY [facility] Administration Senna/Docusate Sodium 2 tab 05/26/19 16:43 05/27/19 08:59 Senokot S PO 2 tab BIDPRN PRN Administration Constipation - Exam General Appearance: awake alert Eye: PERRL, anicteric sclera ENT: no oropharyngeal lesions, moist mucosa Neck: supple, no JVD Heart: no murmur, no gallops Respiratory: no wheezes, no rales Gastrointestinal: soft, non-tender, non-distended, normal bowel sounds Extremities: no cyanosis, no edema Neurological: cranial nerve grossly intact, no focal deficits Psychiatric: normal affect, A&O x 3 Hosp A/P (1) PNA (pneumonia) Code(s): J18.9 - PNEUMONIA, UNSPECIFIED ORGANISM Status: Acute Qualifiers: Pneumonia type: due to unspecified organism Laterality: right (2) Parapneumonic effusion Code(s): J18.9 - PNEUMONIA, UNSPECIFIED ORGANISM; J91.8 - PLEURAL EFFUSION IN OTHER CONDITIONS CLASSIFIED ELSEWHERE Status: Acute (3) COPD exacerbation Code(s): J44.1 - CHRONIC OBSTRUCTIVE PULMONARY DISEASE W (ACUTE) EXACERBATION Status: Acute (4) H/O thoracic aortic aneurysm repair Code(s): Z98.890 - OTHER SPECIFIED POSTPROCEDURAL STATES; Z86.79 - PERSONAL HISTORY OF OTHER DISEASES OF THE CIRCULATORY SYSTEM Status: Chronic (5) Dyslipidemia Code(s): E78.5 - HYPERLIPIDEMIA, UNSPECIFIED Status: Chronic (6) Hypertension Code(s): I10 - ESSENTIAL (PRIMARY) HYPERTENSION Status: Chronic Qualifiers: Hypertension type: essential hypertension Qualified Code(s): I10 - Essential (primary) hypertension (7) PAF (paroxysmal atrial fibrillation) Code(s): I48.0 - PAROXYSMAL ATRIAL FIBRILLATION Status: Chronic - Plan s/p drainage of 1400ml of parapneumonic effusion 05/30/2019. is on nebs, ceftriaxone, got picc line 05/31/2019 dulcolax suppository prn, is on oral agents to ambulate as tolerated await cytology on pleural fluid to r/o malignancy, CT chest shows findings s/o of malignancy chronic b/l lung nodule, prior bronch/bx 07/2018 was -ve for cancer but PET was +ve on right lung nodule hemostable has actinomyces growing in sputum swing bed in am/wednesday is on 2 lts nc O2
[2019-06-02] MEDS: Senokot S 8.6-50 MG TAB PO PRN (17:41)
[2019-06-02] MEDS: Mag-Al 1200 mg/1200 mg/30 ML UDCUP PO PRN (20:16)
[2019-06-02] MEDS ORDERED: Milk Of Magnesia 30 ML UDCUP PO PRN (23:04)
[2019-06-03] MEDS: Mometasone/Formoterol 120 PUFF INHALER INH SCH ×2 (06:53→18:10)
[2019-06-03] MEDS: Isosorbide Mononitrate (ER) 30 MG TAB PO SCH (09:00)
[2019-06-03] MEDS: Aspirin 81 mg Enteric Coated Tablet PO SCH (09:00)
[2019-06-03] MEDS: Docusate 100 MG CAP PO SCH ×2 (09:00→20:35)
[2019-06-03] MEDS: Lisinopril 20 MG TAB PO SCH (09:00)
[2019-06-03] MEDS: Enoxaparin Sodium 40 MG/0.4 ML SYRINGE SC SCH (09:01)
[2019-06-03] MEDS: Amlodipine 10 MG TAB PO SCH (09:01)
[2019-06-03] MEDS: Famotidine 20 MG TAB PO SCH ×2 (09:01→20:35)
[2019-06-03] MEDS: Metoprolol Tartrate 50 MG TAB PO SCH (09:01)
[2019-06-03] MEDS: cloNIDine 0.1 MG TAB PO SCH ×2 (09:01→20:38)
[2019-06-03] MEDS: Amiodarone 200 MG TAB PO SCH ×2 (09:01→20:34)
[2019-06-03] MEDS: Polyethylene Glycol 3350 17 GM Packet PO SCH (09:02)
--- NOTE | 2019-06-03 11:42 | PRG ---
DATE OF SERVICE: 06/03/2019 SUBJECTIVE: The patient is very talkative this morning. He had no acute complaints. OBJECTIVE: VITAL SIGNS: Temperature 97.9, pulse 78, respirations 16, O2 saturation 90% on 3 L. HEENT: Unremarkable. NECK: No adenopathy or JVD. LUNGS: Fairly clear anteriorly. CARDIAC: S1, S2. Regular. ABDOMEN: Soft. EXTREMITIES: No edema. 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 PLAN: The patient is continuing IV Rocephin. From my standpoint, he is stable for the next level of care, whether that be correction or home. He needs to follow up with Dr. Khan as an outpatient. Job ID: [id number]
[2019-06-03] MEDS: cefTRIAXone\\ROCEPHIN 2 GM in Sodium Chloride 0.9% 100 ML IVPB SCH (12:53)
[2019-06-03] MEDS: Acetaminophen 325 MG TAB PO PRN (12:59)
[2019-06-03] MEDS: Ibuprofen 200 MG TAB PO PRN (12:59)
--- NOTE | 2019-06-03 14:22 | PDOC.HOSPP ---
- Subjective Encounter Date: 06/03/19 Encounter Time: 10:40 Subjective: Pt seen for followup re: pneumonia. Feels slightly better. No fevers. - Objective Vital Signs & Weight: Vital Signs (12 hours) Temp Pulse Resp BP BP Pulse Ox 06/03/19 10:53 78 16 90 L 06/03/19 09:01 82 127/70 06/03/19 09:00 127/70 06/03/19 08:25 97.9 F 82 18 127/70 94 L 06/03/19 08:00 94 L 06/03/19 06:56 90 L 06/03/19 06:55 78 16 90 L 06/03/19 06:53 78 16 90 L 06/03/19 04:36 97.9 F 85 16 139/76 95 Weight Admit Weight 150 lb 11.2 oz Weight 150 lb 11.2 oz I&O: 06/02/19 06/03/19 06/04/19 06:59 06:59 06:59 Intake Total 1480 1580 Output Total 1000 920 Balance 480 660 Result Diagrams: 05/31/19 06:03 05/31/19 06:03 Additional Labs: Labs and MARs reviewed by me. Hospitalist ROS - Review of Systems Respiratory: reports: cough, dry Cardiovascular: denies: chest pain, palpitations, orthopnea, paroxysmal noc. dyspnea, edema, light headedness Gastrointestinal: denies: nausea, vomiting, abdominal pain, diarrhea, constipation, melena, hematochezia - Medication Medications: Active Medications Generic Name Dose Route Start Last Admin Trade Name Freq PRN Reason Stop Dose Admin Acetaminophen 650 mg 05/26/19 16:43 06/03/19 12:59 Tylenol PO 650 mg Q4H PRN Administration Headache/Fever/Mild Pain (1-3) Al Hydroxide/Mg Hydroxide 30 ml 06/02/19 20:05 06/02/19 20:16 Maalox PO 30 ml Q6H PRN Administration Gas Pain Albuterol/Ipratropium 3 ml 05/26/19 16:52 06/03/19 04:36 Duoneb NEB 3 ml Q4H PRN Administration SOB &/or Wheezing Albuterol/Ipratropium 3 ml 05/26/19 19:00 06/03/19 10:53 Duoneb NEB 3 ml [id number] TRINI Administration Amiodarone HCl 100 mg 05/28/19 09:00 06/03/19 09:01 Cordarone PO 100 mg BID [facility] Administration Amlodipine Besylate 10 mg 05/28/19 09:00 06/03/19 09:01 Norvasc PO 10 mg DAILY [facility] Administration Aspirin 81 mg 05/28/19 09:00 06/03/19 09:00 Ecotrin PO 81 mg DAILY [facility] Administration Bisacodyl 10 mg 05/27/19 17:15 06/01/19 20:50 Dulcolax PO 10 mg DAILYPRN [facility] Administration Bisacodyl 10 mg 05/28/19 12:54 06/02/19 20:21 Dulcolax [place] 10 mg Q8H PRN Administration Constipation Clonidine 0.1 mg 05/27/19 21:00 06/03/19 09:01 Catapres PO 0.1 mg BID [facility] Administration Clonidine 0.1 mg 05/28/19 02:00 05/28/19 02:02 Catapres PO 0.1 mg Q12H PRN Administration SBP>160 Docusate Sodium 100 mg 05/27/19 21:00 06/03/19 09:00 Colace PO 100 mg BID [facility] Administration Enoxaparin Sodium 40 mg 05/27/19 09:00 06/03/19 09:01 Lovenox SC 40 mg 0900 [facility] Administration Famotidine 20 mg 05/26/19 21:00 06/03/19 09:01 Pepcid PO 20 mg BID [facility] Administration Ceftriaxone Sodium 2 gm/ 100 mls @ 200 mls/hr 05/31/19 13:00 06/03/19 12:53 Sodium Chloride IVPB 100 mls Q24HR [facility] Administration Ibuprofen 400 mg 05/31/19 11:21 06/03/19 12:59 Motrin PO 400 mg TID PRN Administration Mild Pain (1-3) Isosorbide Mononitrate 30 mg 05/28/19 09:00 06/03/19 09:00 Imdur Er PO 30 mg DAILY [facility] Administration Lisinopril 20 mg 05/28/19 09:00 06/03/19 09:00 Zestril PO 20 mg DAILY [facility] Administration Magnesium Hydroxide 30 ml 06/02/19 23:04 06/02/19 23:31 Milk Of Magnesium PO 30 ml DAILYPRN PRN Administration Constipation Metoprolol Tartrate 50 mg 05/28/19 09:00 06/03/19 09:01 Lopressor PO 50 mg DAILY [facility] Administration Mometasone Furoate/Formoterol Fumar 2 puff 05/27/19 18:30 06/03/19 06:53 Dulera 200 Mcg/5 Mcg Inhaler INH 2 puff BID-RT [facility] Administration Morphine Sulfate 1 mg 05/27/19 01:29 06/02/19 12:09 Morphine SLOW IVP 1 mg Q4H PRN Administration Moderate Pain (4-6) Polyethylene Glycol 17 gm 05/28/19 09:00 06/03/19 09:02 Miralax PO 17 gm DAILY [facility] Administration Senna/Docusate Sodium 2 tab 05/26/19 16:43 06/02/19 17:41 Senokot S PO 2 tab BIDPRN PRN Administration Constipation - Exam General Appearance: NAD Eye: anicteric sclera ENT: moist mucosa Neck: supple Heart: RRR, no rubs Respiratory: CTAB Gastrointestinal: soft, non-tender Psychiatric: normal affect, normal behavior Hosp A/P (1) PNA (pneumonia) Code(s): J18.9 - PNEUMONIA, UNSPECIFIED ORGANISM Status: Acute Qualifiers: Pneumonia type: due to unspecified organism Laterality: right (2) Parapneumonic effusion Code(s): J18.9 - PNEUMONIA, UNSPECIFIED ORGANISM; J91.8 - PLEURAL EFFUSION IN OTHER CONDITIONS CLASSIFIED ELSEWHERE Status: Acute (3) Dyslipidemia Code(s): E78.5 - HYPERLIPIDEMIA, UNSPECIFIED Status: Chronic (4) Hypertension Code(s): I10 - ESSENTIAL (PRIMARY) HYPERTENSION Status: Chronic Qualifiers: Hypertension type: essential hypertension Qualified Code(s): I10 - Essential (primary) hypertension (5) PAF (paroxysmal atrial fibrillation) Code(s): I48.0 - PAROXYSMAL ATRIAL FIBRILLATION Status: Chronic - Plan continue antibiotics, out of bed/ambulate Continue IV ceftriaxone. Await cytology from thoracentesis fluid. HTN controlled.
[2019-06-04] MEDS: Ibuprofen 200 MG TAB PO PRN (01:38)
[2019-06-04] MEDS: Morphine 2 MG/ML SYRINGE SLOW IVP PRN ×4 (01:54→23:00)
[2019-06-04] MEDS: Mometasone/Formoterol 120 PUFF INHALER INH SCH ×2 (06:56→18:18)
[2019-06-04] MEDS: Famotidine 20 MG TAB PO SCH ×2 (09:49→21:09)
[2019-06-04] MEDS: Lisinopril 20 MG TAB PO SCH (09:49)
[2019-06-04] MEDS: Metoprolol Tartrate 50 MG TAB PO SCH (09:49)
[2019-06-04] MEDS: Aspirin 81 mg Enteric Coated Tablet PO SCH (09:50)
[2019-06-04] MEDS: cloNIDine 0.1 MG TAB PO SCH ×2 (09:50→21:09)
[2019-06-04] MEDS: Docusate 100 MG CAP PO SCH ×2 (09:50→21:08)
[2019-06-04] MEDS: Isosorbide Mononitrate (ER) 30 MG TAB PO SCH (09:50)
[2019-06-04] MEDS: Amiodarone 200 MG TAB PO SCH ×2 (09:51→21:09)
[2019-06-04] MEDS: Amlodipine 10 MG TAB PO SCH (09:51)
[2019-06-04] MEDS: Enoxaparin Sodium 40 MG/0.4 ML SYRINGE SC SCH (09:53)
[2019-06-04] MEDS: Polyethylene Glycol 3350 17 GM Packet PO SCH (09:54)
--- NOTE | 2019-06-04 12:20 | PRG ---
DATE OF SERVICE: 06/04/2019 SUBJECTIVE: The patient is doing about the same, has no acute complaints. OBJECTIVE: VITAL SIGNS: Temperature is 98.1, pulse 94, blood pressure 153/72, O2 saturation 96% on 2 L. HEENT: Unremarkable. NECK: No adenopathy or JVD. CHEST: Diminished breath sounds at right base compared to left. CARDIAC: S1 and S2. Regular. ABDOMEN: Soft. EXTREMITIES: No edema. 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 PLANS: Continue on IV Rocephin. We need to get some idea from Infectious Disease how long he needs to be treated and whether or not he needs PICC line put in. Job ID: [id number]
[2019-06-04] MEDS: cefTRIAXone\\ROCEPHIN 2 GM in Sodium Chloride 0.9% 100 ML IVPB SCH (12:28)
--- NOTE | 2019-06-04 12:42 | PRG ---
DATE OF SERVICE: 06/04/2019 SUBJECTIVE: Still feeling what he describes as nervous, coughing up with some small amount of yellowish phlegm. Moderate pain at the site of the chest tube, which has been removed. Able to walk around. Finally, he had a bowel movement and voiding without difficulty. No abdominal pain. OBJECTIVE: VITAL SIGNS: He has been afebrile. Other vital signs are not particularly remarkable. Slight elevation of systolic blood pressure. GENERAL: Awake and alert. LUNGS: With diminished breath sounds, right side. HEART: S1 and S2, regular rate. ABDOMEN: Soft, not distended. EXTREMITIES: Moves extremities equally. No edema. LABORATORY DATA: Sodium 134, creatinine 0.94. White cell count 10.2, hemoglobin 12.2, platelets 280. ASSESSMENT AND DISCUSSION: Coronary artery disease with prior bypass graft surgery and aortic dissection with repair, chronic smoking up until a few years ago. 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 The patient will continue on Rocephin 2 g daily for about 4 weeks approximately and then transition to oral cephalosporin versus amoxicillin. There is a history of allergy to penicillin, but most of those patients are able to actually tolerate rechallenge with penicillin, so may consider challenging him with amoxicillin prior to discharge planning in preparation for subsequent conversion to oral amoxicillin. The oral component of the treatment would last for a few months, probably up to 6 months. Job ID: [id number]
--- NOTE | 2019-06-04 13:40 | PDOC.HOSPP ---
- Subjective Encounter Date: 06/04/19 Encounter Time: 09:40 Subjective: Pt seen for followup re: pneumonia. feels well. No complaints. - Objective Vital Signs & Weight: Vital Signs (12 hours) Temp Pulse Resp BP BP Pulse Ox 06/04/19 09:51 94 153/72 H 06/04/19 09:50 153/72 H 06/04/19 09:49 153/72 H 06/04/19 08:00 98.1 F 74 18 153/72 H 96 06/04/19 06:58 90 L 06/04/19 06:57 76 16 90 L 06/04/19 06:56 76 16 90 L 06/04/19 01:59 76 16 92 L Weight Admit Weight 150 lb 11.2 oz Weight 150 lb 11.2 oz I&O: 06/03/19 06/04/19 06/05/19 06:59 06:59 06:59 Intake Total 1580 1120 480 Output Total 920 700 Balance 660 420 480 Result Diagrams: 05/31/19 06:03 05/31/19 06:03 Additional Labs: labs and MARs reviewed by nd Hospitalist ROS - Review of Systems Cardiovascular: denies: chest pain, palpitations, orthopnea, paroxysmal noc. dyspnea, edema, light headedness Gastrointestinal: denies: nausea, vomiting, abdominal pain, diarrhea, constipation, melena, hematochezia - Medication Medications: Active Medications Generic Name Dose Route Start Last Admin Trade Name Freq PRN Reason Stop Dose Admin Acetaminophen 650 mg 05/26/19 16:43 06/03/19 12:59 Tylenol PO 650 mg Q4H PRN Administration Headache/Fever/Mild Pain (1-3) Al Hydroxide/Mg Hydroxide 30 ml 06/02/19 20:05 06/02/19 20:16 Maalox PO 30 ml Q6H PRN Administration Gas Pain Albuterol/Ipratropium 3 ml 05/26/19 16:52 06/03/19 04:36 Duoneb NEB 3 ml Q4H PRN Administration SOB &/or Wheezing Albuterol/Ipratropium 3 ml 05/26/19 19:00 06/04/19 06:57 Duoneb NEB 3 ml [id number] [facility]I Administration Amiodarone HCl 100 mg 05/28/19 09:00 06/04/19 09:51 Cordarone PO 100 mg BID [facility] Administration Amlodipine Besylate 10 mg 05/28/19 09:00 06/04/19 09:51 Norvasc PO 10 mg DAILY [facility] Administration Aspirin 81 mg 05/28/19 09:00 06/04/19 09:50 Ecotrin PO 81 mg DAILY [facility] Administration Bisacodyl 10 mg 05/27/19 17:15 06/01/19 20:50 Dulcolax PO 10 mg DAILYPRN [facility] Administration Bisacodyl 10 mg 05/28/19 12:54 06/02/19 20:21 Dulcolax [place] 10 mg Q8H PRN Administration Constipation Clonidine 0.1 mg 05/27/19 21:00 06/04/19 09:50 Catapres PO 0.1 mg BID [facility] Administration Clonidine 0.1 mg 05/28/19 02:00 05/28/19 02:02 Catapres PO 0.1 mg Q12H PRN Administration SBP>160 Docusate Sodium 100 mg 05/27/19 21:00 06/04/19 09:50 Colace PO 100 mg BID [facility] Administration Enoxaparin Sodium 40 mg 05/27/19 09:00 06/04/19 09:53 Lovenox SC 40 mg 0900 [facility] Administration Famotidine 20 mg 05/26/19 21:00 06/04/19 09:49 Pepcid PO 20 mg BID [facility] Administration Ceftriaxone Sodium 2 gm/ 100 mls @ 200 mls/hr 05/31/19 13:00 06/04/19 12:28 Sodium Chloride IVPB 100 mls Q24HR [facility] Administration Ibuprofen 400 mg 05/31/19 11:21 06/04/19 01:38 Motrin PO 400 mg TID PRN Administration Mild Pain (1-3) Isosorbide Mononitrate 30 mg 05/28/19 09:00 06/04/19 09:50 Imdur Er PO 30 mg DAILY [facility] Administration Lisinopril 20 mg 05/28/19 09:00 06/04/19 09:49 Zestril PO 20 mg DAILY [facility] Administration Magnesium Hydroxide 30 ml 06/02/19 23:04 06/02/19 23:31 Milk Of Magnesium PO 30 ml DAILYPRN PRN Administration Constipation Metoprolol Tartrate 50 mg 05/28/19 09:00 06/04/19 09:49 Lopressor PO 50 mg DAILY [facility] Administration Mometasone Furoate/Formoterol Fumar 2 puff 05/27/19 18:30 06/04/19 06:56 Dulera 200 Mcg/5 Mcg Inhaler INH 2 puff BID-RT [facility] Administration Morphine Sulfate 1 mg 05/27/19 01:29 06/04/19 12:36 Morphine SLOW IVP 1 mg Q4H PRN Administration Moderate Pain (4-6) Polyethylene Glycol 17 gm 05/28/19 09:00 06/04/19 09:54 Miralax PO Not Given DAILY [facility] Senna/Docusate Sodium 2 tab 05/26/19 16:43 06/02/19 17:41 Senokot S PO 2 tab BIDPRN PRN Administration Constipation - Exam General Appearance: NAD Eye: anicteric sclera ENT: moist mucosa Neck: supple, no thyromegaly Heart: RRR Respiratory: CTAB, no rales Gastrointestinal: soft, non-tender Skin: no rashes Psychiatric: normal affect, normal behavior Hosp A/P (1) PNA (pneumonia) Code(s): J18.9 - PNEUMONIA, UNSPECIFIED ORGANISM Status: Acute Qualifiers: Pneumonia type: due to unspecified organism Laterality: right (2) Parapneumonic effusion Code(s): J18.9 - PNEUMONIA, UNSPECIFIED ORGANISM; J91.8 - PLEURAL EFFUSION IN OTHER CONDITIONS CLASSIFIED ELSEWHERE Status: Acute (3) Dyslipidemia Code(s): E78.5 - HYPERLIPIDEMIA, UNSPECIFIED Status: Chronic (4) Hypertension Code(s): I10 - ESSENTIAL (PRIMARY) HYPERTENSION Status: Chronic Qualifiers: Hypertension type: essential hypertension Qualified Code(s): I10 - Essential (primary) hypertension (5) PAF (paroxysmal atrial fibrillation) Code(s): I48.0 - PAROXYSMAL ATRIAL FIBRILLATION Status: Chronic - Plan continue antibiotics, out of bed/ambulate Will continue IV ceftriaxone. Await cytology from thoracentesis fluid. Mobilize patient. HTN controlled. DC if cytology negative.
[2019-06-04] MEDS: Mag-Al 1200 mg/1200 mg/30 ML UDCUP PO PRN (17:30)
[2019-06-04] MEDS: Acetaminophen 325 MG TAB PO PRN (21:08)
[2019-06-05] MEDS: Ibuprofen 200 MG TAB PO PRN (03:14)
[2019-06-05] MEDS: Morphine 2 MG/ML SYRINGE SLOW IVP PRN ×2 (03:14→12:15)
[2019-06-05] MEDS: Mometasone/Formoterol 120 PUFF INHALER INH SCH (07:35)
[2019-06-05] MEDS: Lisinopril 20 MG TAB PO SCH (09:04)
[2019-06-05] MEDS: Isosorbide Mononitrate (ER) 30 MG TAB PO SCH (09:05)
[2019-06-05] MEDS: Aspirin 81 mg Enteric Coated Tablet PO SCH (09:05)
[2019-06-05] MEDS: cloNIDine 0.1 MG TAB PO SCH (09:05)
[2019-06-05] MEDS: Amiodarone 200 MG TAB PO SCH (09:06)
[2019-06-05] MEDS: Metoprolol Tartrate 50 MG TAB PO SCH (09:06)
[2019-06-05] MEDS: Docusate 100 MG CAP PO SCH (09:06)
[2019-06-05] MEDS: Amlodipine 10 MG TAB PO SCH (09:07)
[2019-06-05] MEDS: Famotidine 20 MG TAB PO SCH (09:07)
[2019-06-05] MEDS: Polyethylene Glycol 3350 17 GM Packet PO SCH (09:08)
[2019-06-05] MEDS: Enoxaparin Sodium 40 MG/0.4 ML SYRINGE SC SCH (09:09)
[2019-06-05] MEDS: cefTRIAXone\\ROCEPHIN 2 GM in Sodium Chloride 0.9% 100 ML IVPB SCH (12:17)
--- NOTE | 2019-06-05 17:13 | RAD ---
PA AND LATERAL CHEST: History: Pleural effusion. FINDINGS/IMPRESSION: Comparison made with exam of 05-26-19. Changes of median sternotomy and aortic endograft are again seen. There is a left upper extremity PIC C line with tip in the projection of the SVC. No pneumothoraces are noted. There is a moderate size r ight pleural effusion with adjacent infiltrates. There is mild pulmonary vascular congestion. POS: [facility]
[2019-06-05] MEDS ORDERED: AMOXicillin 250 MG CAP PO SCH (17:45)
[2019-06-05 17:56] VITALS: BP 172/75; TEMP 98.2
--- NOTE | 2019-06-05 21:51 | DIS ---
DATE OF ADMISSION: 05/26/2019 DATE OF DISCHARGE: 06/05/2019 PRIMARY CARE PROVIDER: Cristiano Philip MD DISCHARGE DIAGNOSES: 1. Acute hypoxic respiratory failure. 2. Pneumonia. 3. Parapneumonic effusion. 4. 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 5. Pulmonary nodule. CONDITION OF PATIENT ON THE DAY OF DISCHARGE: Stable. I assessed Mr. Bautista on the day of discharge. He denies any chest pain or shortness of breath. Vital signs are stable. S1 and S2 are heard, regular. Lungs are clear to auscultation bilaterally. CONSULTATIONS DURING THIS HOSPITALIZATION: Pulmonary and Critical Care Medicine , Dr. Peng; Infectious Diseases, Dr. Cisse. DISCHARGE MEDICATIONS: 1. Amlodipine 10 mg daily. 2. Aspirin 81 mg daily. 3. Clonidine 0.1 mg 2 times a day. 4. Isosorbide mononitrate 30 mg daily. 5. Lisinopril 20 mg daily. 6. Metoprolol tartrate 50 mg daily. 7. Rocephin 2 g intravenously every 24 hours till July 13, 2019. 8. Amiodarone 100 mg 2 times a day. 9. Docusate 100 mg 2 times a day. 10. Dulera 200/5 mcg two puffs 2 times a day. 11. DuoNeb p.r.n. HOSPITAL COURSE: Mr. Bautista is a pleasant 69-year-old gentleman, who was admitted to [facility] on May 26, 2019, for acute hypoxic respiratory failure secondary to right-sided pneumonia. Pulmonary and Critical Care Medicine Service was consulted. He was treated with intravenous antibiotics. CT scan of the chest on May 30 showed interval enlargement of right hilar mass, which extends anteriorly to abut the pleura as well as extends anteriorly and medially to about the mediastinum and pericardium. He had moderately large right pleural effusion and associated passive atelectasis. He had pleural thickening of the right base. On May 30, he underwent right thoracentesis. Sputum culture grew Actinomyces. Infectious Disease Service was consulted. The patient has been advised intravenous ceftriaxone 2 g daily until July 13, 2018, and then transitioned to oral cephalosporin versus amoxicillin. The oral component of the treatment would last for a few months, probably up to six months. He had PICC line placed. He was challenged with oral amoxicillin prior to discharge, and tolerated the medicatoon. The patient's cytology from thoracentesis did not show any malignant cells. It was a paucicellular specimen showing rare leukocytes with degenerative change. Many thanks for allowing me to participate in your patient's care. Please feel free to contact me with any questions or concerns. During this hospitalization, he had nonreactive HIV test, negative urine Legionella pneumophila antigen test, negative urine Streptococcus pneumoniae test. Fungal smear is pending. The patient was deconditioned. He is being discharged to [facility] for further management. DISCHARGE DESTINATION: formerly [facility]. TIME SPENT: Total amount of time spent coordinating this discharge: 32 minutes. Job ID: [id number] MTDD
--- NOTE | 2019-06-06 07:53 | PRG ---
DATE OF SERVICE: 06/05/2019 SERVICE: Pulmonary Medicine. INTERVAL HISTORY: The patient is doing okay from respiratory standpoint. He is breathing comfortably. He continues to have ongoing discomfort in the chest. That being said, he seems to be stable if not improving slightly. He denies any fevers or chills. No significant overnight events. PHYSICAL EXAMINATION: VITAL SIGNS: Afebrile, pulse 81, blood pressure 120/69, respirations 18, and O2 saturation 92% on 3 L nasal cannula. GENERAL: The patient is awake and alert, in no apparent distress. LUNGS: Good air entry. Decreased air entry at the right base. No prolonged expiratory phase or wheezing is appreciated. I do not appreciate any rhonchi. HEART: Normal rate, regular. ABDOMEN: Soft, nontender, nondistended. Bowel sounds are positive. MUSCULOSKELETAL: No cyanosis or clubbing. No pitting in the bilateral lower extremities. NEUROLOGIC: Grossly nonfocal. LABORATORY DATA: WBC 10.2, hemoglobin 12.2, platelets 280,000. Effusion is clearly an exudate. Strep and Legionella urine antigens are negative. HIV is nonreactive. Fungal smear is negative. Actinomyces is strongly positive in the sputum fluid, although body fluid cultures are negative to date. ASSESSMENT: 1. Acute hypoxic respiratory failure. 2. Pleural effusion, neutrophilic exudate. 3. Community acquired pneumonia, suspected to be secondary to Actinomyces. 4. Pulmonary nodule, previously PET positive, though bronchoscopy did not demonstrate any malignancy or organisms. DISCUSSION AND PLAN: I will perform a chest x-ray tomorrow morning. I do believe we have a plan in place for long-term antibiotic administration. If the chest x-ray looks okay, he could be considered for transition to home. If on the other hand, the chest x-ray looks significantly abnormal, repeat CT of the chest will be considered. Pulmonary/Critical Care will follow closely. Job ID: [id number]
== END 2019-06-05 17:58 | disposition swing bed (61) | DRG 177 ==
LOC: ERS 12:43 → 2NO 19:29 → T4-B 05-28 12:43
PROVIDERS: ADMIT Family Medicine; ATTEND Family Medicine
PROC: 0W9930Z Drainage of Right Pleural Cavity with Drainage Device, Percutaneous Approach (ICD-10-PCS; principal; 2019-05-30)
PROC: 02HV33Z Insertion of Infusion Device into Superior Vena Cava, Percutaneous Approach (ICD-10-PCS; 2019-05-31)
PROC: B518ZZA Fluoroscopy of Superior Vena Cava, Guidance (ICD-10-PCS; 2019-05-31)
DX: A42.0 Pulmonary actinomycosis (principal); J96.01 Acute respiratory failure with hypoxia; J44.1 Chronic obstructive pulmonary disease with (acute) exacerbation; J44.0 Chronic obstructive pulmonary disease with (acute) lower respiratory infection; J91.8 Pleural effusion in other conditions classified elsewhere; J98.11 Atelectasis; I10 Essential (primary) hypertension; F17.210 Nicotine dependence, cigarettes, uncomplicated; E78.5 Hyperlipidemia, unspecified; I48.0 Paroxysmal atrial fibrillation; R91.1 Solitary pulmonary nodule; I25.10 Atherosclerotic heart disease of native coronary artery without angina pectoris; Z95.1 Presence of aortocoronary bypass graft; Z88.8 Allergy status to other drugs, medicaments and biological substances; Z79.899 Other long term (current) drug therapy; Z79.51 Long term (current) use of inhaled steroids; Z98.890 Other specified postprocedural states; Z88.0 Allergy status to penicillin
CPT/HCPCS: 36415; 36569; 71045; 71046; 71260; 80048; 80053; 81001; 82945; 83615; 83690; 83986; 84157; 84484; 85025; 85060; 87070; 87116; 87205; 87206; 87389; 87449; 87899; 88112; 88305; 89051; 93005; 94640; 94664; 94760; 96365; 96367; 96375; C1751; J0456; J0696; J1650; J1956; J2185; J2270; J2920; J2930; J3490; J7620

== ENCOUNTER 2019-06-19 09:46 | Inpatient (IN) | payer MEDICARE, MEDICAID ==
[2019-06-19] MEDS ORDERED: Morphine 4 MG/ML VIAL ONE (11:16)
[2019-06-19] MEDS ORDERED: Sodium Chloride 0.9% 1,000 ML IV SCH (13:09)
[2019-06-19] MEDS ORDERED: Acetaminophen 325 MG TAB PO PRN (13:37)
[2019-06-19] MEDS ORDERED: hydrALAZINE 20 MG/ML VIAL SLOW IVP PRN (13:37)
[2019-06-19] MEDS ORDERED: cefTRIAXone\\ROCEPHIN 2 GM in Sodium Chloride 0.9% 100 ML IVPB SCH (14:00)
[2019-06-19] MEDS ORDERED: cefTRIAXone\\ROCEPHIN 1 GM in Sodium Chloride 0.9% 100 ML IVPB SCH ×2 (14:00→16:00)
--- NOTE | 2019-06-19 15:25 | CT ---
CT CHEST WITHOUT CONTRAST CLINICAL INDICATION: Shortness of breath. Loculated pleural fluid. Follow-up evaluation. COMPARISON: 05/30/2019 FINDINGS: Aorta: Dense vascular calcifications are seen involving the great vessels as well as the thoracic aor ta. Aortic stent graft is again noted in place. Lungs: There has been interval increase in right pleural fluid. A large loculated pleural fluid colle ction is seen extending from the right lung apex to the right lung base. Area of heterogeneity and soft tissue appearing density is seen involving the right mid lung zone anteriorly in the right hilar region which may represent a combination of right lung mass and associated atelectasis. There is collapse of the right lower lobe due to large loculated pleural fluid collection. There are parenchym al and interstitial densities in the visualized small amount of aerated lung in the right lung apex and right upper lobe which could be related to postobstructive pneumonitis. Lymphangitic spread of tu mor in this region cannot be entirely excluded. A small left pleural effusion is now present with associated passive atelectasis. Mediastinum: Median sternotomy wires are present with linear metallic wires also seen in the lower as pect of the pericardium likely due to prior postsurgical change. There is a mildly enlarged right paratracheal lymph node measuring 1.3 cm in short axis dimension. Left subclavian central venous catheter is noted in place with tip at the level of the proximal SVC. Thyroid gland: Where visualized, the thyroid gland has a grossly normal nonenhanced CT appearance. Osseous structures: No suspicious lytic or sclerotic osseous lesions are identified. Chest wall: Minimal subcutaneous edema seen overlying the right chest. Upper abdomen: Dense vascular calcifications are seen involving the abdominal aorta and visualized me senteric vessels. IMPRESSION: 1. Interval enlargement of right pleural fluid collection with a large loculated pleural fluid collec tion seen extending from the right lung apex to the right lung base with associated pleural thickening along the collection. There is complete collapse of the right lower lobe, and the masslike density in the right lung and right hilar region is larger in size compared to prior study where a spiculated type mass was present measuring 8.6 cm x 4.9 cm. This area of soft tissue density now dat ures 12.5 cm x 6.3 cm. This may represent a combination of enlargement of the mass and associated volume loss. 2. Interstitial and parenchymal lung changes in the small amount of aerated lung in the right upper l obe and right lung apex which may be related to postobstructive pneumonitis. Lymphangitic spread of tumor cannot be entirely excluded. 3. Interval development of a small left pleural effusion. 4. Mildly enlarged right paratracheal lymph node. 5. Additional incidental findings are as described above.
[2019-06-19] MEDS: Morphine 4 MG/ML VIAL SLOW IVP PRN ×2 (16:10→20:21)
--- NOTE | 2019-06-19 17:05 | HP ---
PRIMARY CARE PHYSICIAN: Cristiano Philip MD CHIEF COMPLAINT: Shortness of breath. HISTORY OF PRESENT ILLNESS: Mr. Bautista is a very pleasant 69-year-old gentleman, who was recently discharged from our facility on June 08. At that time, he was admitted for a parapneumonic effusion that was attributed to Acinetobacter. He underwent thoracentesis with the removal of 1400 mL of pleural fluid. It was found to be an exudative effusion and sputum cytology was negative and he was placed on IV Rocephin and transition to the swing bed in [place]. He says when he left the hospital, he was still a little bit short of breath, but over the last 4 to 5 days, he has been getting progressively more short of breath. He says he also noted a pain on the right side of his chest, which he describes as sharp in character. He also notes a cough, which has been productive of some whitish to yellow sputum. He says he has been fairly thick and he does note some blood tinging. He says that the shortness of breath does occur at rest and it is worse with exertion, but he says "he has been mostly lying around in bed all the time." He also notes a decrease in his appetite and says that last year he was weighing about 170 pounds and now he weighs a 153 pounds, and his appetite has been decreased since a few months ago. He denies any abdominal pain. He has had some constipation. No diarrhea, but he does admit to vomiting once. He also has had stable two pillow orthopnea. No PND and occasional lower extremity edema. When he was brought back to the emergency room here, a chest x-ray was done, which showed almost complete opacification of the right lung and he is being admitted for recurrent right pleural effusion. REVIEW OF SYSTEMS: All systems were reviewed and are negative except for that mentioned in the history of present illness. PAST MEDICAL HISTORY: Significant for recent parapneumonic effusion, COPD, coronary artery disease, and hypertension. PAST SURGICAL HISTORY: He has had bypass surgery in 2017. He had a development of aortic dissection, which had to be repaired in 2017 as well. Left knee surgery. ALLERGIES: TO PENICILLIN, WHICH CAUSES HIVES. HE IS ALSO ALLERGIC TO DILTIAZEM. HE CANNOT REMEMBER THE EFFECT. SOCIAL HISTORY: He is single. He has no children. He continues to smoke cigars. He had been smoking heavily for the last 40 to 45 years up to a pack a day. He says he used to drink, but he has quit when he had his heart surgery in 2017. At that time, he was drinking about four beers a night. He would like to be a full code. His sister Gretel Landa is his surrogate decision maker. He has no children. He is ambulatory at home. FAMILY HISTORY: Significant for hypertension and coronary artery disease. MEDICATIONS: His current medications are taken from the ER records and include; 1. Aspirin 81 mg daily. 2. Metoprolol 50 mg once a day. 3. Clonidine 0.1 mg t.i.d. 4. Amiodarone 200 mg twice a day. 5. Amlodipine 10 mg daily. 6. Albuterol nebs one inhalation q.6 as needed. 7. Lisinopril 20 mg once a day. PHYSICAL EXAMINATION: GENERAL: He is alert and oriented. He appears to be in no acute distress. He is well developed and well nourished. He is a bit frail and he is thin. VITAL SIGNS: Blood pressure was 148/75, heart rate 92, respiratory rate of 22, temperature is 98.6. HEENT: Pupils are equal, round, and reactive to light. Extraocular muscles are intact. Sclerae anicteric. Throat, there is no erythema and no exudates. NECK: On his neck, he has a large golf ball size mass on the right cheek, which is soft. It is movable and it feels as if it is an encapsulated. There was no submandibular adenopathy or supraclavicular adenopathy. LUNGS: They are clear with the exception of a decreased breath sounds in the right lung up to about midway of his chest. There was some mild E to A changes as well, but no tactile fremitus anteriorly. His lung sounds were clear. CARDIOVASCULAR: He had a normal S1 and S2. I did not appreciate an S3 or S4. No murmurs, clicks, or rubs. ABDOMEN: Soft. It is nontender and nondistended. Positive for bowel sounds. There is no rebound, no guarding. No evidence of organomegaly. No abdominal bruits. EXTREMITIES: There is no clubbing or cyanosis. No edema. He does have some muscle wasting in the calves. No joint effusions. NEUROLOGIC: His cranial nerves 2 through 12 are grossly intact. His muscle strength is 5/5 in both his upper and lower extremities. SKIN AND INTEGUMENT: Other than having some dry skin and mycotic nails, there are no significant skin changes. LABORATORY DATA: His white blood cell count 7.5, hemoglobin 9.7, hematocrit is 31.5, and platelet count is 394. The sodium was 137, potassium 4.6, chloride is 99, CO2 is 29, BUN of 10, creatinine 0.65, and glucose is 89. On his chest x-ray by my reading again, he has almost complete opacification of the right hemithorax and a small pleural effusion on the left. Some evidence of either adenopathy in the mediastinum. ASSESSMENT AND PLAN: 1. This is a pleasant 69-year-old gentleman, who is being admitted for recurrent right pleural effusion. On his previous admission, it was attributed to a parapneumonic fluid effusion likely from Acinetobacter. However, in review of his CT scan that he had on his previous admission, there was evidence of some hilar fullness extending into the mediastinum and there were some evidence of some densities in the right upper lobe and some possible narrowing of the right upper bronchus, which could be concerning for malignancy in a patient who has over a 40 pack-year history of smoking. For the plan, he will be admitted to the medical floor as he appears to be hemodynamically stable. We will continue the IV antibiotics that he had been receiving. We will consult Pulmonology as well as ID and I suspect he will need a Vascular Surgery consult for possible decortication. 2. Chronic obstructive pulmonary disease. We will continue his usual medications. Continue p.r.n. duo nebs. 3. For coronary artery disease this appears to be clinically stable. We will need to reconcile and restart his home medications as indicated. 4. Hypertension currently his blood pressure is controlled. We will restart his home medications and p.r.n. medications as needed. Job ID: [id number]
[2019-06-19] MEDS: MEROPENEM 1 GM/50 ML 1 GM in Premix Bag 1 BAG IVPB SCH (22:03)
[2019-06-19] MEDS: Famotidine/PF 20 mg/2ml Vial SLOW IVP SCH (22:03)
[2019-06-20] MEDS: Morphine 4 MG/ML VIAL SLOW IVP PRN ×2 (00:06→06:32)
--- NOTE | 2019-06-20 00:51 | CON ---
DATE OF CONSULTATION: REASON FOR CONSULTATION: Worsening right lung inflammatory changes with loculated effusion. HISTORY OF PRESENT ILLNESS: A 69-year-old patient, whom I had seen at the end of May, who had a history of numerous cardiac interventions including cardiac bypass graft surgery, aortic arch replacement in [place] for management of aortic root dissection and he developed an area of abnormality in the right hilum with mass lesion, which was positive on a PET scan with a negative bronchoscopy or nondiagnostic bronchoscopy. He continued to have purulent sputum production, admitted in September with a possible pneumonia and enlarging hilar mass with concern for malignancy. He did have hypercalcemia at that time. A surgical procedure was considered, but not carried out. In December, the patient came in with COPD exacerbation. At that time, a repeat bronchoscopy was considered, but the patient declined. He was given antimicrobial therapy and methylprednisolone and continued with lack of improvement, weight loss, worsening dyspnea, so he was readmitted. At this time, the CT showed moderately large right pleural effusion with passive atelectasis, enlargement of right hilar mass extending into the right upper lobe. A cytology of thoracentesis specimen completed did not show any malignancy. He did have Actinomyces growth from the sputum sample. He was treated then for this with Rocephin, but now has returned with worsening pleural effusion with loculated findings on CT scan. This loculated pleural effusion extended from the right lung apex to the right lung base. There was a soft tissue appearing density in the right hilar region, which could represent a right lung mass plus mildly associated atelectasis. Currently, Mr. Bautista is in the oncology unit. He is complaining of dyspnea. No headaches, some sore throat. No dental pain. No back pain. No abdominal pain or diarrhea. No genitourinary symptoms. Still with some sputum production noted. Multiple areas of myalgia and arthralgia. PAST MEDICAL HISTORY: Includes COPD, chronic smoking until a few years ago, coronary artery disease, bypass graft surgery and an aortic dissection with aortic arch replacement in [place], chronic pleural effusion with inflammatory changes/exudative effusion with negative cultures, positive Actinomyces cultures from sputum. SOCIAL HISTORY: Includes alcoholism. Former smoker. He used to work as a landa. FAMILY HISTORY: Noncontributory. ALLERGIES: CARDIZEM, PENICILLIN. CURRENT MEDICATIONS: 1. Tylenol. 2. DuoNeb. 3. Ceftriaxone. 4. Lovenox. 5. Pepcid. 6. Apresoline. 7. Morphine. PHYSICAL EXAMINATION: VITAL SIGNS: T-max 98.6, blood pressure 143/71, pulse 100, respiratory rate 24, O2 saturation 94% at 4 L nasal cannula. GENERAL: He is tachypneic, appears uncomfortable at rest. He is a little bit diaphoretic. Peripheral IV access and PICC line in place. HEENT: No lymphadenopathy. Some element of temporal wasting. Ocular movements conjugate. Oral cavity with still quite a few teeth in place with significant decay and gum disease. NECK: Supple. No jugular vein distention. LUNGS: With diminished breath sounds in the right hemithorax. HEART: S1, S2, regular rate. ABDOMEN: Soft. Left side appears clear. Abdomen soft, not distended or tender. No ascites. No bladder distention. No organomegaly. EXTREMITIES: No joint inflammatory activity. 1+ edema in lower extremities. Pulses 1+ in dorsalis pedis. He moves it. NEUROLOGIC: He is diffusely weak. He is awake and oriented. LABORATORY DATA: White cell count 7.5, hemoglobin 9.7, platelets 394 with 92% neutrophils. Chemistry with the last sodium 136, creatinine 0.65, bilirubin 0.4. CRP 9.9 and this has not been repeated. The fluid from 05/30 with 2400 WBCs with 46% neutrophils, 1% eosinophils. LDH 975, protein 3.6. The cultures from sputum with Actinomyces is the final culture from the pleural fluid from May 30 with many WBCs, but no organisms in 5 days. ASSESSMENT: 1. Chronic smoking, alcoholism. 2. Coronary artery disease, aortic dissection with aortic arch replacement, bypass graft surgery. 3. Chronic inflammatory pleural effusion with loculations, which has failed treatment with Rocephin for presumed Actinomyces. 4. The patient has a mass area versus area of pneumonitis close to the hilum. Again, differential diagnosis includes malignancy versus fungal anaerobic infection and/or actinomycosis. We will switch him to meropenem. He probably will need decortication or at least a thoracentesis, but he will certainly need a more definitive diagnostic procedure to obtain tissue for pathology and microbiology testing. Job ID: [id number]
[2019-06-20] MEDS: ALPRAZolam 0.25 MG TAB PO PRN ×2 (03:40→20:17)
[2019-06-20 03:49] LABS: #Lymphocytes 0.7 thou/uL (1.20-3.40); #Monocytes 1.2 thou/uL (0.11-0.59); #Neutrophils 8.1 thou/uL (1.40-6.50); %Eosinophils 0.1 % (0.0-10.0); %Lymphocytes 6.7 % (21.0-51.0); %Monocytes 11.7 % (0.0-10.0); %Neutrophils 81.5 % (42.0-75.0); Hemoglobin 10.9 g/dL (14.0-18.0); Mean Corpuscular HGB CONC 32.6 g/dL (32.0-36.0); Mean Corpuscular Hemoglobin 30.9 pg (27.0-31.0); Mean Corpuscular Volume 94.8 fL (78.0-98.0); Mean Platelet Volume 7.2 fL (7.4-10.4); Platelet Count 392 thou/uL (130-400); RBC Distribution Width 12.2 % (11.5-14.5); Red Blood Cell (RBC) Count 3.53 mill/uL (4.70-6.10)
[2019-06-20 04:10] LABS: Anion Gap 18 mmol/L (10-20); BUN (Urea Nitrogen) 13 mg/dL (8.4-25.7); Calc. Creatinine Clearance 100 mL/min (70-130); Calcium 10.1 mg/dL (7.8-10.44); Carbon Dioxide 23 mmol/L (23-31); Chloride 102 mmol/L (98-107); Estimated GFR-MDRD Greater than 90; Glucose 71 mg/dL (80-115); Potassium 4.7 mmol/L (3.5-5.1); Sodium 138 mmol/L (136-145)
[2019-06-20] MEDS: MEROPENEM 1 GM/50 ML 1 GM in Premix Bag 1 BAG IVPB SCH ×3 (05:31→20:18)
[2019-06-20] MEDS ORDERED: Fentanyl 100 MCG/2 ML VIAL ONE (08:41)
[2019-06-20] MEDS ORDERED: Midazolam HCl 2 mg/2 ml Vial ONE (08:41)
[2019-06-20] MEDS ORDERED: ALPRAZolam 0.5 MG TAB PO PRN (08:48)
[2019-06-20] MEDS ORDERED: Enoxaparin Sodium 40 MG/0.4 ML SYRINGE SC SCH (09:00)
[2019-06-20] MEDS: Metoprolol Tartrate 50 MG TAB PO SCH (09:10)
[2019-06-20] MEDS ORDERED: Bupivacaine PF 0.5% 30 ML VIAL ONE (09:36)
[2019-06-20] MEDS ORDERED: Lidocaine 1% w/Epinephrine 1:100K 20 ML VIAL ONE (09:36)
--- NOTE | 2019-06-20 09:50 | CON ---
DATE OF CONSULTATION: HISTORY OF PRESENT ILLNESS: Mr. Bautista is a 69-year-old gentleman, who was seen by Dr. Khan at the end of May and underwent a right thoracentesis for large right pleural effusion. Cultures were negative. Sputum cultures have grown Actinomyces, which he has been treated for. He re-presented with severe shortness of breath and opacified right chest. Chest CT has shown loculated right pleural effusion. He also has had a lung mass on the right. The patient has a history of ascending aortic dissection and has undergone ascending aortic repair with elephant trunk extension endovascularly in [place]. The patient also has COPD and coronary artery disease. He was seen by Dr. Peng and now I was asked to see him to discuss decortication and biopsy on the right. PAST MEDICAL HISTORY: 1. Coronary artery disease. 2. COPD. 3. Hypertension. 4. History of right parapneumonic effusion, status post thoracentesis. At the time of his thoracentesis, his right lower lobe never really re-expanded on followup chest x-ray and this was in the end of May approximately 3 weeks ago. PAST SURGICAL HISTORY: 1. Coronary artery bypass grafting with aortic dissection repair in 2017 in [place]. 2. Knee surgery. ALLERGIES: PENICILLIN, DILTIAZEM. MEDICATIONS: 1. Aspirin 81 mg daily. 2. Metoprolol 50 mg daily. 3. Clonidine 0.1 t.i.d. 4. Amiodarone 200 mg b.i.d. 5. Amlodipine 10 mg daily. 6. Lisinopril 20 mg daily. PHYSICAL EXAMINATION: GENERAL: This is a thin elderly patient, who appears frail. LUNGS: He has no breath sounds on the right. Breath sounds on the left are clear. NECK: Supple. HEART: Rhythm is regular. Sternum has healed nicely. ABDOMEN: Soft and nontender. EXTREMITIES: No edema. LABORATORY DATA: Of note, hemoglobin is 10.9. Potassium is 4.7, creatinine 0.64. EKG shows sinus rhythm with no ST changes. ASSESSMENT AND PLAN: Probable right empyema for thoracotomy and decortication and biopsies. Job ID: [id number] MTDD
[2019-06-20] MEDS ORDERED: Ondansetron PF 4 MG/2 ML Vial ONE (10:35)
[2019-06-20] MEDS ORDERED: Rocuronium Bromide 10 MG/ML (10ML VIAL) ONE (10:35)
[2019-06-20] MEDS ORDERED: Glycopyrrolate 0.2 MG/ML 5 ML SYRINGE ONE (10:35)
[2019-06-20] MEDS ORDERED: PHENYLEPHRINE-NS 100 MCG/ML 10 ML SYRINGE ONE (10:35)
[2019-06-20] MEDS ORDERED: PROPOFOL 200 MG/20 ML VIAL ONE (10:35)
[2019-06-20] MEDS ORDERED: Ondansetron PF 4 MG/2 ML Vial IVP PRN (13:02)
--- NOTE | 2019-06-20 13:17 | RAD ---
CHEST ONE VIEW: HISTORY: Status post thoracotomy. COMPARISON: 06/19/2019 FINDINGS: Postoperative changes are noted with two right chest tubes in place. Previously noted extensive right pleural effusion is no longer present. There are moderate parenchymal changes throughout the right l preethi, particularly in the right mid and lower lung zones, probably related to extensive atelectasis. T here is some right sided pleural air over the right apex and along the right lateral chest. The left chest appears stable. Postop midline sternotomy and aortic Endo stent. IMPRESSION: 1. Resolution of the previously noted large right pleural effusion. 2. Two right chest tubes in place with some mild to moderate residual air within the right pleural sp trinity. 3. Parenchymal changes noted throughout the right lung, particularly in the mid and lower lung zones, probably related to chronic atelectasis. Continue short term followup. 4. Subcutaneous emphysema on the right. POS: TPC
[2019-06-20] MEDS: Amlodipine 10 MG TAB PO SCH (14:39)
[2019-06-20] MEDS: Famotidine/PF 20 mg/2ml Vial SLOW IVP SCH ×2 (14:39→20:18)
[2019-06-20] MEDS: Amiodarone 200 MG TAB PO SCH ×2 (14:39→20:18)
[2019-06-20] MEDS: Aspirin 81 mg Enteric Coated Tablet PO SCH (14:39)
[2019-06-20] MEDS: Isosorbide Mononitrate (ER) 30 MG TAB PO SCH (14:39)
[2019-06-20] MEDS: Sodium Chloride 0.9% 1,000 ML IV SCH ×2 (14:40→23:12)
[2019-06-20] MEDS: HYDROcodone/Acetaminophen 5/325 mg Tablet PO PRN ×2 (14:43→23:11)
[2019-06-20] MEDS: Morphine 2 MG/ML SYRINGE SLOW IVP PRN ×3 (16:41→21:25)
--- NOTE | 2019-06-20 17:00 | PDOC.HOSPP ---
- Subjective Encounter Date: 06/20/19 Encounter Time: 16:58 Subjective: Mr. Bautista was seen today in follow-up of recurrent pleural effusion. He is back from thorocotomy . He is having some pain in his right side. - Objective Vital Signs & Weight: Vital Signs (12 hours) Temp Pulse Resp Pulse Ox 06/20/19 14:56 97.6 F 06/20/19 14:53 94 L 06/20/19 14:39 93 06/20/19 14:28 99 06/20/19 12:29 93 20 94 L 06/20/19 12:18 57 L 06/20/19 08:15 91 15 100 06/20/19 08:00 100 06/20/19 07:12 97.6 F Weight Admit Weight 146 lb 7 oz Weight 143 lb 8 oz Most Recent Monitor Data Heart Rate from ECG 80 NIBP 97/53 NIBP BP-Mean 67 Respiration from ECG 26 SpO2 95 I&O: 06/19/19 06/20/19 06/21/19 06:59 06:59 06:59 Intake Total 600 300 Output Total 230 400 Balance 370 -100 Result Diagrams: 06/20/19 03:30 06/20/19 03:30 Hospitalist ROS - Medication Medications: Active Medications Generic Name Dose Route Start Last Admin Trade Name Freq PRN Reason Stop Dose Admin Acetaminophen 650 mg 06/19/19 13:37 06/20/19 03:40 Tylenol PO 650 mg Q4H PRN Administration Headache/Fever/Mild Pain (1-3) Hydrocodone Bitart/Acetaminophen 2 tab 06/20/19 13:02 06/20/19 14:43 [place] 5/325 PO 2 tab Q4H PRN Administration Moderate Pain (4-6) Albuterol/Ipratropium 3 ml 06/19/19 19:00 06/20/19 12:29 Duoneb NEB 3 ml [id number] TRINI Administration Alprazolam 0.25 mg 06/20/19 03:25 06/20/19 03:40 Xanax PO 0.25 mg Q8H PRN Administration Anxiety Amiodarone HCl 100 mg 06/20/19 09:00 06/20/19 14:39 Cordarone PO Not Given BID TRINI Amlodipine Besylate 10 mg 06/20/19 09:00 06/20/19 14:39 Norvasc PO Not Given DAILY [facility] Aspirin 81 mg 06/20/19 09:00 06/20/19 14:39 Ecotrin PO Not Given DAILY [facility] Famotidine 20 mg 06/19/19 21:00 06/20/19 14:39 Pepcid SLOW IVP Not Given Q12HR [facility] Meropenem 1 gm/ Device 50 mls @ 100 mls/hr 06/19/19 22:00 06/20/19 15:09 IVPB 50 mls Q8HR TRINI Administration Sodium Chloride 1,000 mls @ 100 mls/hr 06/20/19 13:02 06/20/19 14:40 Normal Saline 0.9% IV Not Given .Q10H [facility] Isosorbide Mononitrate 30 mg 06/20/19 09:00 06/20/19 14:39 Imdur Er PO Not Given DAILY [facility] Metoprolol Tartrate 50 mg 06/20/19 09:00 06/20/19 09:10 Lopressor PO 50 mg DAILY TRINI Administration Morphine Sulfate 2 mg 06/19/19 13:37 06/20/19 16:41 Morphine SLOW IVP 2 mg Q4H PRN Administration Moderate Pain (4-6) Morphine Sulfate 4 mg 06/19/19 13:37 06/20/19 06:32 Morphine SLOW IVP 4 mg Q4H PRN Administration Moderate to Severe Pain (6-10) - Exam Eye: PERRL Heart: RRR, no murmur, no gallops, no rubs, normal peripheral pulses Respiratory: CTAB, no wheezes, no rales, no ronchi, normal chest expansion Gastrointestinal: soft, non-tender, non-distended, normal bowel sounds Extremities: no cyanosis, no clubbing, no edema Hosp A/P (1) Pleural effusion Code(s): J90 - PLEURAL EFFUSION, NOT ELSEWHERE CLASSIFIED Status: Acute (2) PNA (pneumonia) Code(s): J18.9 - PNEUMONIA, UNSPECIFIED ORGANISM Status: Chronic (3) Hypertension Code(s): I10 - ESSENTIAL (PRIMARY) HYPERTENSION Status: Chronic Qualifiers: (4) Tobacco abuse Code(s): Z72.0 - TOBACCO USE Status: Chronic - Plan * Recurrent Pleural Effusion- He is post thorocotomy with biopsy * Await pathology results * HTN- blood pressure is low normal * Pneumonia- continue Meropenem for presumed Actinomyces * Symptom management
--- NOTE | 2019-06-20 17:13 | OP ---
DATE OF PROCEDURE: 06/20/2019 PREOPERATIVE DIAGNOSIS: Recurrent right pleural effusion with right lung mass. POSTOPERATIVE DIAGNOSIS: Widely metastatic non-small cell lung cancer. PROCEDURES PERFORMED: Right thoracotomy with total pulmonary decortication and right lung/chest wall biopsy. ANESTHESIA: General endotracheal, Dr. Steve Posadas. ESTIMATED BLOOD LOSS: 500. DRAINS: [id number] chest tubes x2. SPECIMENS: Fluid sent for culture. Parietal pleura and lung biopsy sent for pathologic exam - frozen section returned as non-small cell lung cancer. DESCRIPTION OF PROCEDURE: After consent was obtained, the patient was brought to the operating room and placed in supine position on the operating table. Appropriate central line was placed, and general endotracheal anesthesia was induced. Flexible fiberoptic bronchoscopy was performed confirming endotracheal tube placement. The patient was placed in the left lateral decubitus position. Right chest wall was prepped and draped in usual sterile fashion. Joints were appropriately padded, and SCDs were used. Right posterolateral thoracotomy incision was made, and chest was entered at approximately the fifth interspace. On entering the chest, approximately 2 L of clear fluid was evacuated. Forensic Ballistics Expert specimen was sent for culture. Once we were in the chest, it became quickly apparent that the chest wall was involved anteriorly with the lung. As we tried to peel this away, this became more, more apparent that it was a tumor and a high school admissions representative specimen was sent. The parietal peel was then removed. The visceral peel was removed from the lower and middle lobes as much as safely could be performed. I was never able to completely get the lung re-expanded. About this time, the frozen section returned as non-small cell lung cancer. The chest was irrigated. [place] chest tubes were placed. The ribs were reapproximated with #1 Vicryl, and wounds were then closed in layers. Dermabond was applied to skin. The patient tolerated the procedure well, was awakened, extubated, and transferred to the intensive care unit in stable, but critical condition. Job ID: [id number]
[2019-06-20] MEDS: Mometasone/Formoterol 120 PUFF INHALER INH SCH (18:29)
[2019-06-20] MEDS: Atorvastatin Calcium 10 MG TAB PO SCH (20:17)
[2019-06-21] MEDS: Morphine 2 MG/ML SYRINGE SLOW IVP PRN ×2 (01:38→05:15)
[2019-06-21] MEDS: HYDROcodone/Acetaminophen 5/325 mg Tablet PO PRN ×5 (02:49→20:13)
--- NOTE | 2019-06-21 03:34 | CON ---
DATE OF CONSULTATION: 06/20/2019 HISTORY OF PRESENT ILLNESS: Mr. 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 He has extremely poor dentition. He has lung mass, it has been followed and apparently he has been set up for this mass for biopsy multiple times. These biopsies have been canceled because he was still taking BC Powder. He was sent back over here from a [facility] for a very large right pleural effusion. CT done yesterday afternoon showed what appeared to be a large loculated right pleural effusion. I consulted Cardiothoracic Surgery for this. He was seen prior to going to surgery this morning. PAST MEDICAL HISTORY: Remarkable for; 1. COPD. 2. History of coronary artery disease with bypass surgery in the past. 3. History of an aortic arch replacement in [place]. 4. History of a thoracentesis last admission with negative cultures. His pleural fluid pathology from May 31 was negative for malignancy. The fluid was exudative. FAMILY HISTORY: Negative for lung disease in early age. SOCIAL HISTORY: Noncontributory. REVIEW OF SYSTEMS: 10 point review of systems completed, otherwise negative. PHYSICAL EXAMINATION: GENERAL: This is a very pleasant gentleman, in no distress this morning. He is always very cooperative. VITAL SIGNS: His heart rate is 84, blood pressure 111/59, respiratory rate is in the 20s, oximetry is in the 90s. HEAD AND NECK: Unchanged. He has extremely poor dentition. He has what appears to be a large epidermal inclusion cyst at the angle of his right jaw. NECK: Supple. LUNGS: Remarkable for absent breath sounds on the right. Left lung is clear. HEART: Regular rhythm. No S3. ABDOMEN: Soft and nontender. EXTREMITIES: Without clubbing, cyanosis, or edema. LABORATORY DATA: White count 10, hemoglobin 10.9, platelets 392. Electrolytes are normal. IMPRESSION AND PLAN: Loculated right effusion. I felt the best approach would be with CT Surgery's assistance. DISCUSSION: He went to the operating room today. Surprisingly, he had a very thick rind around his lung and multiple biopsies done in his chest by Dr. Altamirano revealed preliminary pathology of non-small cell carcinoma. I have explained to the patient that we did biopsies as prior to the procedure. He wondered what we would be doing about the mass that had been seen on his chest CT in the past. I told him we would biopsy it if it could be identified. I have told his sister that this is likely a malignancy. We will wait for final pathology to complete our planning for whether or not this can be treated. He obviously has to recover from this operative procedure before we could even consider treatment and we will need all special stains on his pleural and lung biopsies. TIME SPENT: This is a 70-minute consult, 50% of the time was spent on the unit coordinating care and then following up with him after surgery. He did transiently require noninvasive ventilation, but he appears to be doing well on high-flow oxygen. Job ID: [id number] MTDD
[2019-06-21 04:24] LABS: Anion Gap 16 mmol/L (10-20); BUN (Urea Nitrogen) 26 mg/dL (8.4-25.7); Calc. Creatinine Clearance 59 mL/min (70-130); Calcium 8.7 mg/dL (7.8-10.44); Carbon Dioxide 19 mmol/L (23-31); Chloride 105 mmol/L (98-107); Estimated GFR-MDRD 81; Glucose 87 mg/dL (80-115); Potassium 5.2 mmol/L (3.5-5.1); Sodium 135 mmol/L (136-145)
[2019-06-21 04:25] LABS: Hemoglobin 8.3 g/dL (14.0-18.0); MDiff Complete? YES; Mean Corpuscular HGB CONC 32.3 g/dL (32.0-36.0); Mean Corpuscular Hemoglobin 31.2 pg (27.0-31.0); Mean Corpuscular Volume 96.6 fL (78.0-98.0); Mean Platelet Volume 7.2 fL (7.4-10.4); Platelet Count 412 thou/uL (130-400); RBC Distribution Width 12.4 % (11.5-14.5); Red Blood Cell (RBC) Count 2.67 mill/uL (4.70-6.10); White Blood Cell (WBC) Count 20.1 thou/uL (4.8-10.8)
[2019-06-21 04:26] LABS: Band 2 % (5-11); Hypochromia SLIGHT = 6-15 cells (100X) (0-5/hpf); Lymphocytes 2 % (21-51); Monocytes 4 % (0-10); Neutrophil 92 % (42-75); Platelet Morphology Comment Appears Increased
[2019-06-21] MEDS: MEROPENEM 1 GM/50 ML 1 GM in Premix Bag 1 BAG IVPB SCH ×3 (05:54→19:59)
[2019-06-21] MEDS: Mometasone/Formoterol 120 PUFF INHALER INH SCH ×2 (06:29→18:27)
[2019-06-21] MEDS: ALPRAZolam 0.25 MG TAB PO PRN ×2 (07:36→19:57)
[2019-06-21] MEDS: Isosorbide Mononitrate (ER) 30 MG TAB PO SCH (07:37)
[2019-06-21] MEDS: Amiodarone 200 MG TAB PO SCH ×2 (07:37→19:57)
[2019-06-21] MEDS: Aspirin 81 mg Enteric Coated Tablet PO SCH (07:38)
[2019-06-21] MEDS: Famotidine/PF 20 mg/2ml Vial SLOW IVP SCH ×2 (07:39→19:56)
[2019-06-21] MEDS: Sodium Chloride 0.9% 1,000 ML IV SCH ×2 (07:39→19:13)
[2019-06-21] MEDS: Amlodipine 10 MG TAB PO SCH (07:39)
[2019-06-21] MEDS: Metoprolol Tartrate 50 MG TAB PO SCH (07:39)
--- NOTE | 2019-06-21 08:38 | RAD ---
XR Chest 1 View Portable History: Thoracotomy Comparison: Radiograph prior day Findings: Right-sided thoracostomy tubes are similar. Right-sided pneumothorax is slightly improving. The central venous catheter tip sits at the inferior SVC. Defibrillator pads project over the chest. Small left effusion. Mild pulmonary edema. Progressive consolidation throughout the right lung. Impression: Progressive airspace consolidation throughout the right lung can be seen with reexpansion pulmonary edema.
[2019-06-21] MEDS: Ketorolac Tromethamine 30 MG/ML VIAL IVP PRN ×2 (11:10→19:58)
--- NOTE | 2019-06-21 13:11 | PRG ---
DATE OF SERVICE: 06/21/2019 SERVICE: Pulmonary medicine. INTERVAL HISTORY: The patient is doing okay from respiratory standpoint. He is on high-flow nasal cannula. He continues to have chest discomfort, which is appropriate in the postop state. He did not have any fevers or overnight events. PHYSICAL EXAMINATION: VITAL SIGNS: Afebrile, pulse 81, blood pressure 92/54, respirations 20, and saturation 94%, currently on 50% FiO2 delivered via high-flow nasal cannula. GENERAL: The patient is awake and alert, in no apparent distress. LUNGS: Rhonchi are present, particularly on the right. There is no prolonged expiratory phase or wheezing otherwise. HEART: Normal rate, regular. ABDOMEN: Soft, nontender, nondistended. Bowel sounds are positive. MUSCULOSKELETAL: No cyanosis or clubbing. No pitting in the bilateral lower extremities. LABORATORY DATA: WBC 20.1, hemoglobin 8.3, and platelets 412,000. PH 7.33, pCO2 of 56, pO2 of 124. Creatinine 1.09 and gently uptrending, BUN 26. Bicarb 19. Potassium 5.2. Calcium 8.7. Urinalysis is unremarkable. Culture results from this hospital stay are currently negative to date. 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 IMAGING: Chest x-ray demonstrates two thoracostomy tubes are in good position on the right. There is not complete re-expansion of the right lung. Some pulmonary edema is present throughout the right lung. No significant disease is noted on the left at this point. ASSESSMENT: 1. Acute hypoxic respiratory failure. 2. Lung cancer, likely widely metastatic. 3. Pulmonary mass. DISCUSSION AND PLAN: At this point, we are simply awaiting pathology. We can continue treatment for the Actinomyces. Pulmonary will follow in this location. The patient is not going to be a candidate for chemotherapy. Special stains will be pending to establish the immunotherapy profile. Job ID: [id number]
--- NOTE | 2019-06-21 16:41 | PRG ---
DATE OF SERVICE: 06/21/2019 SUBJECTIVE: Mr. Bautista had a decortication by Dr. Altamirano and a biopsy. The frozen section demonstrated [id number] lung cancer. The patient is on a high-flow nasal cannula, still with chest pain, which is moderate. No abdominal pain. No diarrhea, and he is voiding the urinal. OBJECTIVE: HEENT: Ocular movements conjugate. LUNGS: Diminished breath sounds in the right side with chest tubes. HEART: S1 and S2, regular rate. ABDOMEN: Soft, not distended. EXTREMITIES: Moves extremities equally. LABORATORY DATA: The white cell count is up to 20,000, hemoglobin 8.3, and platelets 412. Creatinine 1.09. The samples from the pleural tissue include the pathology with a frozen section showing [id number] lung cancer. The Gram stain of the body fluid showed no wbc's, no organisms. Pleural tissue with same thing, no wbc's. ASSESSMENT AND DISCUSSION: Chronic smoking, alcoholism, coronary artery disease, and chronic inflammatory pleural effusion with loculations, which failed antimicrobial therapy, now with documentation of malignancy with [id number] lung cancer, which explains the clinical course until now. Once we have the final culture results, then we will be able to discontinue antimicrobial therapy, and he will need then to start treatment for the malignancy. Job ID: [id number]
--- NOTE | 2019-06-21 18:33 | PDOC.HOSPP ---
- Subjective Encounter Date: 06/21/19 Encounter Time: 10:20 Subjective: Mr. Bautista was seen today in follow-up of recurrent pleural effusion. He is noting continued pain on the right side. He denies any difficulty breathing. - Objective Vital Signs & Weight: Vital Signs (12 hours) Temp Pulse Pulse Pulse Pulse Pulse Resp 06/21/19 18:27 85 18 06/21/19 16:51 98 F 06/21/19 13:53 82 80 81 81 06/21/19 13:41 06/21/19 13:40 64 12 06/21/19 09:00 98.2 F 06/21/19 07:39 78 06/21/19 07:21 BP BP BP BP Pulse Ox Pulse Ox Pulse Ox 06/21/19 18:27 92 L 06/21/19 16:51 06/21/19 13:53 81/44 L 100/50 L 90/43 L 89/79 L 96 94 L 06/21/19 13:41 94 L 06/21/19 13:40 94 L 06/21/19 09:00 06/21/19 07:39 06/21/19 07:21 94 L Pulse Ox Pulse Ox 06/21/19 18:27 06/21/19 16:51 06/21/19 13:53 94 L 94 L 06/21/19 13:41 06/21/19 13:40 06/21/19 09:00 06/21/19 07:39 06/21/19 07:21 Weight Admit Weight 146 lb 7 oz Weight 143 lb 8 oz Most Recent Monitor Data Heart Rate from ECG 83 NIBP 82/47 NIBP BP-Mean 58 Respiration from ECG 21 SpO2 91 I&O: 06/20/19 06/21/19 06/22/19 06:59 06:59 06:59 Intake Total 600 2231 0 Output Total 230 1680 1100 Balance 370 551 -1100 Result Diagrams: 06/21/19 03:30 06/21/19 03:30 Hospitalist ROS - Medication Medications: Active Medications Generic Name Dose Route Start Last Admin Trade Name Freq PRN Reason Stop Dose Admin Acetaminophen 650 mg 06/19/19 13:37 06/20/19 03:40 Tylenol PO 650 mg Q4H PRN Administration Headache/Fever/Mild Pain (1-3) Hydrocodone Bitart/Acetaminophen 1 tab 06/20/19 13:02 06/20/19 23:11 [place] 5/325 PO 1 tab Q4H PRN Administration Mild Pain (1-3) Hydrocodone Bitart/Acetaminophen 2 tab 06/20/19 13:02 06/21/19 16:13 [place] 5/325 PO 2 tab Q4H PRN Administration Moderate Pain (4-6) Albuterol/Ipratropium 3 ml 06/19/19 19:00 06/21/19 18:27 Duoneb NEB 3 ml [id number] TRINI Administration Alprazolam 0.25 mg 06/20/19 03:25 06/21/19 07:36 Xanax PO 0.25 mg Q8H PRN Administration Anxiety Amiodarone HCl 100 mg 06/20/19 09:00 06/21/19 07:37 Cordarone PO 100 mg BID TRINI Administration Amlodipine Besylate 10 mg 06/20/19 09:00 06/21/19 07:39 Norvasc PO Not Given DAILY TRINI Aspirin 81 mg 06/20/19 09:00 06/21/19 07:38 Ecotrin PO 81 mg DAILY TRINI Administration Atorvastatin Calcium 10 mg 06/20/19 21:00 06/20/19 20:17 Lipitor PO 10 mg HS TRINI Administration Famotidine 20 mg 06/19/19 21:00 06/21/19 07:39 Pepcid SLOW IVP 20 mg Q12HR TRINI Administration Meropenem 1 gm/ Device 50 mls @ 100 mls/hr 06/19/19 22:00 06/21/19 16:13 IVPB 50 mls Q8HR TRINI Administration Sodium Chloride 1,000 mls @ 100 mls/hr 06/20/19 13:02 06/21/19 07:39 Normal Saline 0.9% IV 1,000 mls .Q10H TRINI Administration Isosorbide Mononitrate 30 mg 06/20/19 09:00 06/21/19 07:37 Imdur Er PO 30 mg DAILY TRINI Administration Ketorolac Tromethamine 15 mg 06/21/19 11:03 06/21/19 11:10 Toradol IVP 06/26/19 11:04 15 mg Q6H PRN Administration Pain Metoprolol Tartrate 50 mg 06/20/19 09:00 06/21/19 07:39 Lopressor PO Not Given DAILY TRINI Mometasone Furoate/Formoterol Fumar 2 puff 06/20/19 18:30 06/21/19 18:27 Dulera 200 Mcg/5 Mcg Inhaler INH 2 puff BID-RT TRINI Administration Morphine Sulfate 2 mg 06/19/19 13:37 06/21/19 05:15 Morphine SLOW IVP 2 mg Q4H PRN Administration Moderate Pain (4-6) Morphine Sulfate 4 mg 06/19/19 13:37 06/20/19 06:32 Morphine SLOW IVP 4 mg Q4H PRN Administration Moderate to Severe Pain (6-10) - Exam Eye: PERRL, anicteric sclera Heart: RRR, no murmur, no gallops, no rubs, normal peripheral pulses Respiratory: CTAB (with decreased breath sounds on the right base) Gastrointestinal: soft, non-tender, non-distended, normal bowel sounds, no palpable masses, no hepatomegaly Extremities: no cyanosis, no clubbing, no edema Hosp A/P (1) Pleural effusion Code(s): J90 - PLEURAL EFFUSION, NOT ELSEWHERE CLASSIFIED Status: Acute (2) PNA (pneumonia) Code(s): J18.9 - PNEUMONIA, UNSPECIFIED ORGANISM Status: Chronic (3) Hypertension Code(s): I10 - ESSENTIAL (PRIMARY) HYPERTENSION Status: Chronic Qualifiers: (4) Tobacco abuse Code(s): Z72.0 - TOBACCO USE Status: Chronic - Plan * 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
[2019-06-21] MEDS: Atorvastatin Calcium 10 MG TAB PO SCH (19:57)
[2019-06-22] MEDS: HYDROcodone/Acetaminophen 5/325 mg Tablet PO PRN ×4 (01:25→16:18)
[2019-06-22] MEDS: Ketorolac Tromethamine 30 MG/ML VIAL IVP PRN (01:25)
[2019-06-22 03:52] LABS: #Lymphocytes 0.8 thou/uL (1.20-3.40); #Monocytes 1.9 thou/uL (0.11-0.59); %Lymphocytes 4.4 % (21.0-51.0); %Monocytes 10.7 % (0.0-10.0); %Neutrophils 84.8 % (42.0-75.0); Hemoglobin 7.9 g/dL (14.0-18.0); Mean Corpuscular HGB CONC 31.5 g/dL (32.0-36.0); Mean Corpuscular Hemoglobin 30.1 pg (27.0-31.0); Mean Corpuscular Volume 95.6 fL (78.0-98.0); Mean Platelet Volume 7.1 fL (7.4-10.4); Platelet Count 380 thou/uL (130-400); RBC Distribution Width 12.5 % (11.5-14.5); Red Blood Cell (RBC) Count 2.62 mill/uL (4.70-6.10); White Blood Cell (WBC) Count 17.7 thou/uL (4.8-10.8)
[2019-06-22 04:20] LABS: Anion Gap 13 mmol/L (10-20); BUN (Urea Nitrogen) 38 mg/dL (8.4-25.7); Calc. Creatinine Clearance 46 mL/min (70-130); Calcium 8.8 mg/dL (7.8-10.44); Carbon Dioxide 21 mmol/L (23-31); Chloride 107 mmol/L (98-107); Estimated GFR-MDRD 61; Glucose 87 mg/dL (80-115); Potassium 4.9 mmol/L (3.5-5.1); Sodium 136 mmol/L (136-145)
[2019-06-22] MEDS: MEROPENEM 1 GM/50 ML 1 GM in Premix Bag 1 BAG IVPB SCH ×3 (05:52→21:03)
[2019-06-22] MEDS: Sodium Chloride 0.9% 1,000 ML IV SCH ×2 (05:52→18:15)
--- NOTE | 2019-06-22 07:35 | RAD ---
RADIOGRAPH CHEST 1 VIEW: DATE: 06/22/2019 TIME: 4:40 AM HISTORY: 69-year-old male status post thoracotomy, follow-up. COMPARISON: 06/21/2019 FINDINGS: The right basilar and right upper chest tubes remain. The right-sided pneumothorax extending from the apex to the base, appears slightly larger on the current study. Part of this difference could be due to positional differences, but there may actually be slight interval increase in size. Estimated volume of the pneumothorax is approximately 20-30%. Dense opacification of right mid and lower lung zones has become worse. Infiltrate at right midlung z one again noted. Metallic stent from aortic arch to the mid descending thoracic aorta. Left-sided PICC. New finding of mild interstitial changes at the left mid and lower lung zones, questionable for pulmonary interstitial edema. No left-sided pneumothorax. Dense opacification of medial left lung base remains. Probable small bilateral pleural effusions remain. IMPRESSION: 1. Apparent slight interval increase in size of right pneumothorax may or may not be entirely due to positional differences. 2. Interval worsening of dense opacification of right mid and lower lung zones. 3. Possible mild pulmonary interstitial edema.
[2019-06-22] MEDS: Mometasone/Formoterol 120 PUFF INHALER INH SCH ×2 (07:46→18:18)
[2019-06-22] MEDS: Amlodipine 10 MG TAB PO SCH (09:21)
[2019-06-22] MEDS: Aspirin 81 mg Enteric Coated Tablet PO SCH (09:21)
[2019-06-22] MEDS: Isosorbide Mononitrate (ER) 30 MG TAB PO SCH (09:22)
[2019-06-22] MEDS: Metoprolol Tartrate 50 MG TAB PO SCH (09:22)
[2019-06-22] MEDS: Famotidine 20 MG TAB PO SCH (09:22)
[2019-06-22] MEDS ORDERED: Lorazepam 2 MG/ML VIAL SLOW IVP PRN (10:14)
[2019-06-22] MEDS ORDERED: predniSONE 20 MG TAB PO SCH (10:15)
--- NOTE | 2019-06-22 10:24 | PDOC.HOSPP ---
- Subjective Encounter Date: 06/22/19 Encounter Time: 10:23 Subjective: Mr. Bautista was seen today in follow-up of metastatic non-small cell lung cancer. He notes pain on the right side, but it has improved. He also feels anxious. - Objective Vital Signs & Weight: Vital Signs (12 hours) Temp Pulse Pulse Pulse Pulse Resp BP 06/22/19 09:21 85 105/50 L 06/22/19 08:45 87 83 06/22/19 08:00 06/22/19 07:46 06/22/19 07:45 73 25 H 06/22/19 07:33 98.3 F 82 22 H 06/22/19 07:32 97.8 F 82 22 H 06/22/19 07:14 98.2 F 84 25 H 06/22/19 07:00 98.3 F 06/22/19 04:00 97.8 F 06/21/19 23:14 81 16 06/21/19 23:00 98.0 F BP BP BP Pulse Ox Pulse Ox Pulse Ox 06/22/19 09:21 06/22/19 08:45 115/51 L 100/54 L 94 L 95 06/22/19 08:00 95 06/22/19 07:46 92 L 06/22/19 07:45 92 L 06/22/19 07:33 95/47 L 92 L 06/22/19 07:32 95/47 L 06/22/19 07:14 111/55 L 06/22/19 07:00 06/22/19 04:00 06/21/19 23:14 94 L 06/21/19 23:00 Weight Admit Weight 146 lb 7 oz Weight 143 lb 8 oz Most Recent Monitor Data Heart Rate from ECG 82 NIBP 105/50 NIBP BP-Mean 68 Respiration from ECG 15 SpO2 98 I&O: 06/21/19 06/22/19 06/23/19 06:59 06:59 06:59 Intake Total 2231 250 0 Output Total 1680 2350 330 Balance 131 -2100 -330 Result Diagrams: 06/22/19 03:16 06/22/19 03:16 Hospitalist ROS - Medication Medications: Active Medications Generic Name Dose Route Start Last Admin Trade Name Freq PRN Reason Stop Dose Admin Acetaminophen 650 mg 06/19/19 13:37 06/20/19 03:40 Tylenol PO 650 mg Q4H PRN Administration Headache/Fever/Mild Pain (1-3) Hydrocodone Bitart/Acetaminophen 1 tab 06/20/19 13:02 06/20/19 23:11 [place] 5/325 PO 1 tab Q4H PRN Administration Mild Pain (1-3) Hydrocodone Bitart/Acetaminophen 2 tab 06/20/19 13:02 06/22/19 10:11 [place] 5/325 PO 2 tab Q4H PRN Administration Moderate Pain (4-6) Albuterol/Ipratropium 3 ml 06/19/19 19:00 06/22/19 07:45 Duoneb NEB 3 ml [id number] TRINI Administration Amiodarone HCl 100 mg 06/20/19 09:00 06/21/19 19:57 Cordarone PO 100 mg BID TRINI Administration Amlodipine Besylate 10 mg 06/20/19 09:00 06/22/19 09:21 Norvasc PO 10 mg DAILY TRINI Administration Aspirin 81 mg 06/20/19 09:00 06/22/19 09:21 Ecotrin PO 81 mg DAILY TRINI Administration Atorvastatin Calcium 10 mg 06/20/19 21:00 06/21/19 19:57 Lipitor PO 10 mg HS TRINI Administration Famotidine 20 mg 06/22/19 09:00 06/22/19 09:22 Pepcid PO 20 mg 0900 TRINI Administration Meropenem 1 gm/ Device 50 mls @ 100 mls/hr 06/19/19 22:00 06/22/19 05:52 IVPB 50 mls Q8HR TRINI Administration Sodium Chloride 1,000 mls @ 100 mls/hr 06/20/19 13:02 06/22/19 05:52 Normal Saline 0.9% IV 1,000 mls .Q10H TRINI Administration Isosorbide Mononitrate 30 mg 06/20/19 09:00 06/22/19 09:22 Imdur Er PO 30 mg DAILY TRINI Administration Ketorolac Tromethamine 15 mg 06/21/19 11:03 06/22/19 01:25 Toradol IVP 06/26/19 11:04 15 mg Q6H PRN Administration Pain Metoprolol Tartrate 50 mg 06/20/19 09:00 06/22/19 09:22 Lopressor PO 50 mg DAILY TRINI Administration Mometasone Furoate/Formoterol Fumar 2 puff 06/20/19 18:30 06/22/19 07:46 Dulera 200 Mcg/5 Mcg Inhaler INH 2 puff BID-RT TRINI Administration Morphine Sulfate 2 mg 06/19/19 13:37 06/21/19 05:15 Morphine SLOW IVP 2 mg Q4H PRN Administration Moderate Pain (4-6) Morphine Sulfate 4 mg 06/19/19 13:37 06/20/19 06:32 Morphine SLOW IVP 4 mg Q4H PRN Administration Moderate to Severe Pain (6-10) - Exam Eye: PERRL Heart: RRR, no murmur, no gallops, no rubs, normal peripheral pulses Respiratory: rales (+ rales at both bases, and coarse breath sounds) Gastrointestinal: soft, non-tender, non-distended, normal bowel sounds, no palpable masses, no hepatomegaly Extremities: no cyanosis, no edema Hosp A/P (1) Pleural effusion Code(s): J90 - PLEURAL EFFUSION, NOT ELSEWHERE CLASSIFIED Status: Acute (2) PNA (pneumonia) Code(s): J18.9 - PNEUMONIA, UNSPECIFIED ORGANISM Status: Chronic (3) Hypertension Code(s): I10 - ESSENTIAL (PRIMARY) HYPERTENSION Status: Chronic Qualifiers: (4) Tobacco abuse Code(s): Z72.0 - TOBACCO USE Status: Chronic - Plan * 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
[2019-06-22] MEDS: Amiodarone 200 MG TAB PO SCH ×2 (10:27→20:41)
--- NOTE | 2019-06-22 10:33 | PRG ---
DATE OF SERVICE: 06/22/2019 SERVICE: Pulmonary Medicine. INTERVAL HISTORY: The patient is doing okay from a respiratory standpoint. His oxygen requirements; however, gone up. He denies having any shortness of breath currently. He has some chest discomfort at the chest tube insertion site. Outside of that, he has no other complaints. PHYSICAL EXAMINATION: VITAL SIGNS: Afebrile, pulse 85, blood pressure 105/50, respirations 15, and saturation 98%, currently on 70% FiO2 delivered by high-flow nasal cannula. GENERAL: The patient is awake and alert, in no apparent distress. LUNGS: Decent air entry. No prolonged expiratory phase is present. Extensive rhonchi and crackles are present on the right. HEART: Normal rate. Regular. ABDOMEN: Soft, nontender, and nondistended. Bowel sounds are positive. MUSCULOSKELETAL: No cyanosis or clubbing. There is no pitting in the bilateral lower extremities. NEUROLOGIC: Grossly nonfocal. LABORATORY DATA: WBC 17.7, hemoglobin 7.9, and platelets 380,000. Creatinine 1.39 and gently uptrending. BUN 38. Basic metabolic profile is otherwise unremarkable. Bacterial cultures, and body fluid culture remain negative to-date. ASSESSMENT: 1. Acute hypoxic respiratory failure. 2. Non-small cell lung cancer, widely metastatic. 3. Acute lung injury secondary to reexpansion pulmonary edema. DISCUSSION AND PLAN: We will continue supportive care. We will wean oxygen away as tolerated. I will initiate a brief course of steroids to see if we can temper the inflammatory changes that are occurring in the right lung. He will need to remain in the ICU for the time being. Pulmonary/Critical Care will follow. Job ID: [id number] [facility]
--- NOTE | 2019-06-22 10:40 | PDOC.HOSPP ---
- Subjective Encounter Date: 06/22/19 Encounter Time: 10:38 Subjective: Mr. Bautista was seen today in follow-up of CHF exacerbation. He is breathing better. He denies chest pain. - Objective Vital Signs & Weight: Vital Signs (12 hours) Temp Pulse Pulse Pulse Pulse Resp BP 06/22/19 10:35 97.6 F 85 25 H 06/22/19 09:21 85 105/50 L 06/22/19 08:45 87 83 06/22/19 08:00 06/22/19 07:46 06/22/19 07:45 73 25 H 06/22/19 07:33 98.3 F 82 22 H 06/22/19 07:32 97.8 F 82 22 H 06/22/19 07:14 98.2 F 84 25 H 06/22/19 07:00 98.3 F 06/22/19 04:00 97.8 F 06/21/19 23:14 81 16 06/21/19 23:00 98.0 F BP BP BP Pulse Ox Pulse Ox Pulse Ox 06/22/19 10:35 102/54 L 95 06/22/19 09:21 06/22/19 08:45 115/51 L 100/54 L 94 L 95 06/22/19 08:00 95 06/22/19 07:46 92 L 06/22/19 07:45 92 L 06/22/19 07:33 95/47 L 92 L 06/22/19 07:32 95/47 L 06/22/19 07:14 111/55 L 06/22/19 07:00 06/22/19 04:00 06/21/19 23:14 94 L 06/21/19 23:00 Weight Admit Weight 146 lb 7 oz Weight 143 lb 8 oz Most Recent Monitor Data Heart Rate from ECG 84 NIBP 102/54 NIBP BP-Mean 70 Respiration from ECG 32 SpO2 94 I&O: 06/21/19 06/22/19 06/23/19 06:59 06:59 06:59 Intake Total 2231 250 590 Output Total 1680 2350 440 Balance 551 -2100 150 Result Diagrams: 06/22/19 03:16 06/22/19 03:16 Hospitalist ROS - Medication Medications: Active Medications Generic Name Dose Route Start Last Admin Trade Name Freq PRN Reason Stop Dose Admin Acetaminophen 650 mg 06/19/19 13:37 06/20/19 03:40 Tylenol PO 650 mg Q4H PRN Administration Headache/Fever/Mild Pain (1-3) Hydrocodone Bitart/Acetaminophen 1 tab 06/20/19 13:02 06/20/19 23:11 [place] 5/325 PO 1 tab Q4H PRN Administration Mild Pain (1-3) Hydrocodone Bitart/Acetaminophen 2 tab 06/20/19 13:02 06/22/19 10:11 [place] 5/325 PO 2 tab Q4H PRN Administration Moderate Pain (4-6) Albuterol/Ipratropium 3 ml 06/19/19 19:00 06/22/19 07:45 Duoneb NEB 3 ml [id number] TRINI Administration Amiodarone HCl 100 mg 06/20/19 09:00 06/22/19 10:27 Cordarone PO 100 mg BID TRINI Administration Amlodipine Besylate 10 mg 06/20/19 09:00 06/22/19 09:21 Norvasc PO 10 mg DAILY TRINI Administration Aspirin 81 mg 06/20/19 09:00 06/22/19 09:21 Ecotrin PO 81 mg DAILY TRINI Administration Atorvastatin Calcium 10 mg 06/20/19 21:00 06/21/19 19:57 Lipitor PO 10 mg HS TRINI Administration Famotidine 20 mg 06/22/19 09:00 06/22/19 09:22 Pepcid PO 20 mg 0900 TRINI Administration Meropenem 1 gm/ Device 50 mls @ 100 mls/hr 06/19/19 22:00 06/22/19 05:52 IVPB 50 mls Q8HR TRINI Administration Sodium Chloride 1,000 mls @ 100 mls/hr 06/20/19 13:02 06/22/19 05:52 Normal Saline 0.9% IV 1,000 mls .Q10H TRINI Administration Isosorbide Mononitrate 30 mg 06/20/19 09:00 06/22/19 09:22 Imdur Er PO 30 mg DAILY TRINI Administration Ketorolac Tromethamine 15 mg 06/21/19 11:03 06/22/19 01:25 Toradol IVP 06/26/19 11:04 15 mg Q6H PRN Administration Pain Metoprolol Tartrate 50 mg 06/20/19 09:00 06/22/19 09:22 Lopressor PO 50 mg DAILY TRINI Administration Mometasone Furoate/Formoterol Fumar 2 puff 06/20/19 18:30 06/22/19 07:46 Dulera 200 Mcg/5 Mcg Inhaler INH 2 puff BID-RT TRINI Administration Morphine Sulfate 2 mg 06/19/19 13:37 06/21/19 05:15 Morphine SLOW IVP 2 mg Q4H PRN Administration Moderate Pain (4-6) Morphine Sulfate 4 mg 06/19/19 13:37 06/20/19 06:32 Morphine SLOW IVP 4 mg Q4H PRN Administration Moderate to Severe Pain (6-10) Prednisone 40 mg 06/22/19 10:15 06/22/19 10:27 Prednisone PO 06/22/19 12:15 40 mg NOW TRINI Administration Hosp A/P (1) Pleural effusion Code(s): J90 - PLEURAL EFFUSION, NOT ELSEWHERE CLASSIFIED Status: Acute (2) PNA (pneumonia) Code(s): J18.9 - PNEUMONIA, UNSPECIFIED ORGANISM Status: Chronic (3) Hypertension Code(s): I10 - ESSENTIAL (PRIMARY) HYPERTENSION Status: Chronic Qualifiers: (4) Tobacco abuse Code(s): Z72.0 - TOBACCO USE Status: Chronic - Plan * 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
--- NOTE | 2019-06-22 11:13 | PQF ---
Date: 06-22-19 ATTN: DR. PALAK GARCIA Please exercise your independent, professional judgment in responding to the clarification form. Clinical indicators are provided on the bottom of this form for your review Please check appropriate box(s): [ ] Protein Calorie Malnutrition: [ ] Mild [ ] Moderate [ ] Severe [ ] Other Malnutrition (please specify) __ [ ] Other diagnosis [ ] Unable to determine In addition, please specify: Present on Admission (POA): [ ] Yes [ ] No [ ] Unable to determine CLINICAL INDICATORS - SIGNS / SYMPTOMS / LABS / RESULTS AND LOCATION IN MR: BMI 06-20-19: 17.6 [employer] CONSULT 06-20-19: MST Score: 4 (24-33 lb weight loss, poor appetite) ; has previously reported a poor appetite and c/o "a nervous stomach." 2.8% weight loss in the last 3 weeks per EMR, current NPO status H&P 06-19-19: DECREASE IN HIS APPETITE AND SAYS THAT LAST YEAR HE WAS WEIGHING ABOUT 170 POUNDS AND NOW HE WEIGHS A 153 POUNDS, AND HIS APPETITE HAS BEEN DECREASED SINCE A FEW MONTHS AGO, HE DOES HAVE SOME MUSCLE WASTING IN THE CALVES CONSULT NOTE 06-19-19: SOME ELEMENT OF TEMPORAL WASTING RISK FACTORS / RESULTS AND LOCATION IN MR: [employer] CONSULT 06-20-19: Noted: stage I pressure ulcer with MASD to BL buttocks PN DR. GARCIA 06-21-19: MALIGNANCY PLEURAL EFFUSION DUE TO NON SMALL CELL CA OF THE LUNG TREATMENT / RESULTS AND LOCATION IN MR [employer] CONSULT 06-20-19: 1. When medically appropriate, recommend a Heart Healthy diet. May liberalize with a Regular diet if patient takes inadequate PO 2. Recommend Ensure Enlive TID once diet is ordered Moderate Malnutrition (in acute illness) Energy Intake: <75% of estimated energy requirement for > 7 days Weight Loss: 1-2%/1 week; 5%/ 1 month; 7.5%/3 months Other: mild body fat loss; mild muscle mass loss; mild fluid accumulation; Severe Malnutrition (in acute illness) Energy Intake: < 50% of estimated energy requirement for > 5 days Weight Loss: >1-2%/1 week; >5%/1 month; >7.5%/3 months Other: moderate body fat loss; moderate muscle mass loss; moderate- severe fluid accumulation; measurably reduced senior support engineer strength Moderate Malnutrition (in chronic illness) Energy Intake: <75% of estimated energy requirement for >1 month Weight Loss: 5%/1 month; 7.5%/3 months; 10%/6 months; 20%/1 year Other: mild body fat loss; mild muscle mass loss; mild fluid accumulation Severe Malnutrition (in chronic illness) Energy Intake: <75% of estimated energy requirement for >1 month Weight Loss: >5%/1 month; >7.5%/3 months; >10%/6 months; >20%/1 year Other: severe body fat loss; severe muscle mass loss; severe fluid accumulation ; measurably reduced senior support engineer strength (This form is maintained as a part of the permanent medical record) 2014 [employer] All Rights Reserved [email or web address] Office: [phone] [facility]
--- NOTE | 2019-06-22 11:31 | PQF ---
DATE: 06-22-19 ATTN: DR. PALAK GARCIA Please exercise your independent, professional judgment in responding to the clarification form. Clinical indicators are provided on the bottom of this form for your review Please check appropriate box(s): [ ] Acute Renal Failure (ARF) / Acute Kidney Injury (MARY) [ ] Insignificant Lab Values [ ] Other diagnosis [ ] Unable to determine In addition, please specify: Present on Admission (POA): [ ] Yes [ ] No [ ] Unable to determine National Kidney Foundation Guidelines for CKD Staging Stage I Kidney damage with normal or increased GFR GFR > 90 Stage II Kidney damage with mildly decreased GFR GFR 60-89 Stage III Kidney damage with moderately decreased GFR GFR 30-59 Stage IV Kidney damage with severely decreased GFR GFR 16-29 Stage V Kidney failure GFR<15 ESRD End Stage Renal Disease On dialysis Acute Renal Failure/Acute Kidney Failure defined as: Increases in SCr by (>) 0.3 mg/dl within 48 hours OR- Increases in SCr by (>) 1.5 times baseline, known or presumed to have occurred within the prior 7 days OR- Urine volume < 0.5 ml/kg/hour for 6 hours (KDIGO supplement 2012 for RIFLE/SHARLA criteria) For continuity of documentation, please document condition throughout progress notes and discharge summary. Thank You. CLINICAL INDICATORS - SIGNS / SYMPTOMS / LABS / RESULTS AND LOCATION IN MR: GFR: 06-20-19: GREATER THAN 90 06-21-19: 81 06-22-19: 61 CREATININE: 06-20-19: 0.64, 06-21-19: 1.09 06-22-19: 1.39 BUN: 06-20-19: 13 06-21-19: 26 06-22-19: 38 RISK FACTORS / RESULTS AND LOCATION IN MR: ER NOTES 06-19-19: HOME MEDS: ASA TREATMENTS / RESULTS AND LOCATION IN MR: MAR 06-20-19: IVF NS (This form is maintained as a part of the permanent medical record) 2014 [employer]. All Rights Reserved Monalisa Beke, RN [email or web address] Office: [phone] [facility]
[2019-06-22] MEDS: Lorazepam 0.5 MG TAB PO PRN (18:15)
[2019-06-22] MEDS: Atorvastatin Calcium 10 MG TAB PO SCH (20:41)
[2019-06-23] MEDS: HYDROcodone/Acetaminophen 5/325 mg Tablet PO PRN ×2 (00:40→12:32)
[2019-06-23] MEDS: Lorazepam 0.5 MG TAB PO PRN ×2 (02:49→10:20)
[2019-06-23] MEDS: MEROPENEM 1 GM/50 ML 1 GM in Premix Bag 1 BAG IVPB SCH ×3 (05:08→22:05)
[2019-06-23] MEDS: Sodium Chloride 0.9% 1,000 ML IV SCH ×2 (05:08→12:34)
[2019-06-23] MEDS: Mometasone/Formoterol 120 PUFF INHALER INH SCH ×2 (07:09→19:26)
--- NOTE | 2019-06-23 08:04 | PDOC.HOSPP ---
- Subjective Encounter Date: 06/23/19 Encounter Time: 08:02 Subjective: Mr. Bautista was seen today in follow-up of recurrent pleural effusion. He notes improved pain control. He does exhibit some intermittent confusion. - Objective Vital Signs & Weight: Vital Signs (12 hours) Temp Pulse Resp Pulse Ox 06/23/19 07:09 77 18 100 06/23/19 07:00 98.5 F 06/23/19 04:00 97.6 F 06/23/19 00:00 97.8 F 06/22/19 23:08 67 20 96 Weight Admit Weight 146 lb 7 oz Weight 143 lb 8 oz Most Recent Monitor Data Heart Rate from ECG 79 NIBP 141/101 NIBP BP-Mean 114 Respiration from ECG 21 SpO2 97 I&O: 06/22/19 06/23/19 06/24/19 06:59 06:59 06:59 Intake Total 250 3997 120 Output Total 2350 2185 70 Balance -2100 1812 50 Result Diagrams: 06/22/19 03:16 06/22/19 03:16 Hospitalist ROS - Medication Medications: Active Medications Generic Name Dose Route Start Last Admin Trade Name Freq PRN Reason Stop Dose Admin Acetaminophen 650 mg 06/19/19 13:37 06/20/19 03:40 Tylenol PO 650 mg Q4H PRN Administration Headache/Fever/Mild Pain (1-3) Hydrocodone Bitart/Acetaminophen 1 tab 06/20/19 13:02 06/23/19 00:40 [place] 5/325 PO 1 tab Q4H PRN Administration Mild Pain (1-3) Hydrocodone Bitart/Acetaminophen 2 tab 06/20/19 13:02 06/22/19 16:18 [place] 5/325 PO 2 tab Q4H PRN Administration Moderate Pain (4-6) Albuterol/Ipratropium 3 ml 06/19/19 19:00 06/23/19 07:09 Duoneb NEB 3 ml [id number] TRINI Administration Amiodarone HCl 100 mg 06/20/19 09:00 06/22/19 20:41 Cordarone PO 100 mg BID TRINI Administration Amlodipine Besylate 10 mg 06/20/19 09:00 06/22/19 09:21 Norvasc PO 10 mg DAILY TRINI Administration Aspirin 81 mg 06/20/19 09:00 06/22/19 09:21 Ecotrin PO 81 mg DAILY TRINI Administration Atorvastatin Calcium 10 mg 06/20/19 21:00 06/22/19 20:41 Lipitor PO 10 mg HS TRINI Administration Famotidine 20 mg 06/22/19 09:00 06/22/19 09:22 Pepcid PO 20 mg 0900 TRINI Administration Meropenem 1 gm/ Device 50 mls @ 100 mls/hr 06/19/19 22:00 06/23/19 05:08 IVPB 50 mls Q8HR TRINI Administration Sodium Chloride 1,000 mls @ 100 mls/hr 06/20/19 13:02 06/23/19 05:08 Normal Saline 0.9% IV 1,000 mls .Q10H TRINI Administration Isosorbide Mononitrate 30 mg 06/20/19 09:00 06/22/19 09:22 Imdur Er PO 30 mg DAILY TRINI Administration Ketorolac Tromethamine 15 mg 06/21/19 11:03 06/22/19 01:25 Toradol IVP 06/26/19 11:04 15 mg Q6H PRN Administration Pain Lorazepam 0.5 mg 06/22/19 10:14 06/23/19 02:49 Ativan PO 0.5 mg Q4H PRN Administration Anxiety Metoprolol Tartrate 50 mg 06/20/19 09:00 06/22/19 09:22 Lopressor PO 50 mg DAILY TRINI Administration Mometasone Furoate/Formoterol Fumar 2 puff 06/20/19 18:30 06/23/19 07:09 Dulera 200 Mcg/5 Mcg Inhaler INH 2 puff BID-RT TRINI Administration Morphine Sulfate 2 mg 06/19/19 13:37 06/21/19 05:15 Morphine SLOW IVP 2 mg Q4H PRN Administration Moderate Pain (4-6) Morphine Sulfate 4 mg 06/19/19 13:37 06/20/19 06:32 Morphine SLOW IVP 4 mg Q4H PRN Administration Moderate to Severe Pain (6-10) - Exam Eye: PERRL Heart: RRR, no murmur, no gallops, no rubs Respiratory: CTAB (decreased breath sounds at the right base, and occasional rhonchi) Gastrointestinal: soft, non-tender, non-distended, normal bowel sounds, no palpable masses, no hepatomegaly Extremities: no cyanosis, no edema Musculoskeletal: generalized weakness, diffuse muscle atrophy Hosp A/P (1) Pleural effusion Code(s): J90 - PLEURAL EFFUSION, NOT ELSEWHERE CLASSIFIED Status: Acute (2) PNA (pneumonia) Code(s): J18.9 - PNEUMONIA, UNSPECIFIED ORGANISM Status: Chronic (3) Hypertension Code(s): I10 - ESSENTIAL (PRIMARY) HYPERTENSION Status: Chronic Qualifiers: (4) Tobacco abuse Code(s): Z72.0 - TOBACCO USE Status: Chronic (5) Malnutrition of moderate degree Code(s): E44.0 - MODERATE PROTEIN-CALORIE MALNUTRITION Status: Chronic (6) CAD (coronary artery disease) Code(s): I25.10 - ATHSCL HEART DISEASE OF [place] CORONARY ARTERY W/O ANG PCTRS Status: Chronic (7) COPD exacerbation Code(s): J44.1 - CHRONIC OBSTRUCTIVE PULMONARY DISEASE W (ACUTE) EXACERBATION Status: Chronic - Plan * Malignant Pleural effusion due to non-small cell cancer- patient is s/p decortication and chest tube is in place- once more stable treatment options can be discussed * History of recent Actinomyces pneumonia- continue Meropenem * HTN- blood pressure is a bit labile, but overall acceptable- continue Amlodipine, and prn Hydralazine * Moderate Malnutrition- continue nutritional supplementsCOPD- stable * CAD- stable
[2019-06-23] MEDS: Aspirin 81 mg Enteric Coated Tablet PO SCH (08:18)
[2019-06-23] MEDS: predniSONE 20 MG TAB PO SCH (08:18)
[2019-06-23] MEDS: Amlodipine 10 MG TAB PO SCH (08:18)
[2019-06-23] MEDS: Famotidine 20 MG TAB PO SCH ×2 (08:19→20:28)
[2019-06-23] MEDS: Metoprolol Tartrate 50 MG TAB PO SCH (08:19)
[2019-06-23] MEDS: Amiodarone 200 MG TAB PO SCH ×2 (08:19→20:28)
[2019-06-23] MEDS: Docusate 100 MG CAP PO PRN (08:19)
[2019-06-23] MEDS: Isosorbide Mononitrate (ER) 30 MG TAB PO SCH (08:19)
[2019-06-23 08:50] LABS: #Lymphocytes 0.4 thou/uL (1.20-3.40); #Neutrophils 18.2 thou/uL (1.40-6.50); %Lymphocytes 1.8 % (21.0-51.0); %Monocytes 5.3 % (0.0-10.0); %Neutrophils 92.9 % (42.0-75.0); Hemoglobin 10.4 g/dL (14.0-18.0); Mean Corpuscular HGB CONC 32.7 g/dL (32.0-36.0); Mean Corpuscular Hemoglobin 30.3 pg (27.0-31.0); Mean Corpuscular Volume 92.8 fL (78.0-98.0); Mean Platelet Volume 7.2 fL (7.4-10.4); Platelet Count 386 thou/uL (130-400); RBC Distribution Width 13.2 % (11.5-14.5); Red Blood Cell (RBC) Count 3.45 mill/uL (4.70-6.10); White Blood Cell (WBC) Count 19.6 thou/uL (4.8-10.8)
[2019-06-23 09:02] LABS: Anion Gap 11 mmol/L (10-20); BUN (Urea Nitrogen) 37 mg/dL (8.4-25.7); Calc. Creatinine Clearance 83 mL/min (70-130); Calcium 9.7 mg/dL (7.8-10.44); Carbon Dioxide 23 mmol/L (23-31); Chloride 108 mmol/L (98-107); Estimated GFR-MDRD Greater than 90; Glucose 108 mg/dL (80-115); Potassium 5.1 mmol/L (3.5-5.1); Sodium 137 mmol/L (136-145)
--- NOTE | 2019-06-23 09:04 | RAD ---
CHEST ONE VIEW: HISTORY: Chest surgery. Followup. COMPARISON: 06/22/2019 FINDINGS: The cardiac silhouette is magnified and enlarged. The pulmonary vasculature remains slightly engorged . The mediastinum is midline with extensive postoperative changes and descending aortic stent in plac e. Two right thoracostomy tubes remain in place. Right pneumothorax is slightly smaller than on the prio r study. Dense infiltrate/atelectasis of the right lung, primarily the right lower lobe, is slightly less dense than on the prior exam. Left upper extremity PICC remains in place. IMPRESSION: Partial re-expansion of the right lung, otherwise stable postoperative appearance of the chest. POS: [facility]
[2019-06-23] MEDS: Sodium Chloride 0.45% 1,000 ML IV SCH (12:36)
--- NOTE | 2019-06-23 12:47 | PRG ---
DATE OF SERVICE: 06/23/2019 SERVICE: Pulmonary Medicine. INTERVAL HISTORY: The patient is doing fine from respiratory standpoint. Oxygen requirements have been weaned down a little bit. Overnight, his high-flow nasal cannula fell off. His oxygen saturations actually did not budge for over a period of 5 to 10 minutes. This morning, his right-sided chest discomfort is doing okay. His appetite has improved a little bit, he is able to tolerate about 50% of his breakfast. ASSESSMENT: VITAL SIGNS: Afebrile, pulse 75, blood pressure 107/57, respirations are 19, and saturation 97% on 40% via high-flow. GENERAL: The patient is awake and alert, in no apparent distress. LUNGS: Extensive rhonchi and crackles present on the right. No prolonged expiratory phase appreciated. HEART: Normal rate and regular. ABDOMEN: Soft, nontender, and nondistended. Bowel sounds are positive. MUSCULOSKELETAL: No cyanosis or clubbing. There is no pitting in the bilateral lower extremities. NEUROLOGIC: Grossly nonfocal. LABORATORY DATA: WBC 19.6, hemoglobin 10.4 and stable, platelets 386,000. Basic metabolic profile is unremarkable otherwise. IMAGING: Chest x-ray demonstrates dense infiltrates throughout right lung field. Left lung is clear. There is a thoracostomy tubes x2 in place with pneumothorax ex vacuo. ASSESSMENT: 1. Acute hypoxic respiratory failure. 2. Non-small cell lung cancer, widely metastatic. 3. Acute lung injury secondary to re-expansion pulmonary edema. 4. Hydropneumothorax ex vacuo. DISCUSSION AND PLAN: I will continue our supportive care. Nicotine patch will be placed. Otherwise, Pulmonary Critical Care will continue to follow along. We will start on mobilization efforts. I will enlist Physical Therapy. Job ID: [id number]
[2019-06-23] MEDS: Nicotine 21 MG PATCH TD SCH (16:20)
[2019-06-23] MEDS: ALPRAZolam 0.5 MG TAB PO PRN ×2 (16:41→22:05)
[2019-06-23] MEDS: Atorvastatin Calcium 10 MG TAB PO SCH (20:28)
[2019-06-24] MEDS: Sodium Chloride 0.45% 1,000 ML IV SCH ×2 (01:20→17:52)
[2019-06-24] MEDS: Morphine 2 MG/ML SYRINGE SLOW IVP PRN (03:50)
[2019-06-24] MEDS: MEROPENEM 1 GM/50 ML 1 GM in Premix Bag 1 BAG IVPB SCH ×3 (05:56→21:31)
--- NOTE | 2019-06-24 07:31 | RAD ---
EXAM: Portable chest PROVIDED CLINICAL HISTORY: Respiratory insufficiency COMPARISON: 06/23/2019 FINDINGS: Significant interval change with respect to the prior examination is not apparent. IMPRESSION: As above.
[2019-06-24] MEDS: Amlodipine 10 MG TAB PO SCH (08:56)
[2019-06-24] MEDS: Docusate 100 MG CAP PO PRN (08:56)
[2019-06-24] MEDS: Amiodarone 200 MG TAB PO SCH ×2 (08:56→21:30)
[2019-06-24] MEDS: Aspirin 81 mg Enteric Coated Tablet PO SCH (08:56)
[2019-06-24] MEDS: Metoprolol Tartrate 50 MG TAB PO SCH (08:57)
[2019-06-24] MEDS: Famotidine 20 MG TAB PO SCH ×2 (08:57→21:30)
[2019-06-24] MEDS: Isosorbide Mononitrate (ER) 30 MG TAB PO SCH (08:57)
[2019-06-24] MEDS: predniSONE 20 MG TAB PO SCH (08:57)
[2019-06-24] MEDS ORDERED: Nicotine 21 MG PATCH TD SCH (09:00)
[2019-06-24] MEDS: HYDROcodone/Acetaminophen 5/325 mg Tablet PO PRN ×2 (09:47→21:29)
[2019-06-24] MEDS: Mometasone/Formoterol 120 PUFF INHALER INH SCH ×2 (10:34→18:46)
[2019-06-24] MEDS: ALPRAZolam 0.5 MG TAB PO PRN (14:20)
--- NOTE | 2019-06-24 14:47 | PRG ---
DATE OF SERVICE: 06/24/2019 SUBJECTIVE: Marquis Bautista is tearful today. OBJECTIVE: VITAL SIGNS: Heart rate in the 60s, respiratory rates in the 20s, oximetry is 95%, he is still on high-flow oxygen, blood pressure 111/59. LUNGS: Remarkable for equal breath sounds. Still has large air leak on the right. HEART: Regular rhythm. ABDOMEN: Soft. IMPRESSION: 1. Adenocarcinoma. 2. Chest x-ray today is unchanged. PLAN: Continue supportive care. Special stains on his pathology are not back to decide to help decide whether or not, he is a candidate for immunotherapy. No new lab today. Job ID: [id number]
--- NOTE | 2019-06-24 15:11 | PDOC.HOSPP ---
- Subjective Encounter Date: 06/24/19 Encounter Time: 10:20 Subjective: awake, not oriented, drowsy not in distress has chest tube to right side - Objective Vital Signs & Weight: Vital Signs (12 hours) Temp Pulse Resp BP Pulse Ox 06/24/19 14:07 95 06/24/19 12:54 69 22 H 95 06/24/19 12:00 97.5 F L 06/24/19 10:33 78 22 H 94 L 06/24/19 08:56 82 127/66 06/24/19 07:26 100 06/24/19 07:00 98.4 F 06/24/19 04:00 97.9 F Weight Admit Weight 146 lb 7 oz Weight 141 lb 1.6 oz Most Recent Monitor Data Heart Rate from ECG 68 NIBP 136/74 NIBP BP-Mean 94 Respiration from ECG 24 SpO2 93 I&O: 06/23/19 06/24/19 06/25/19 06:59 06:59 06:59 Intake Total 3997 2986 343 Output Total 2185 2105 590 Balance 1812 881 -247 Result Diagrams: 06/23/19 08:32 06/23/19 08:32 Hospitalist ROS - Medication Medications: Active Medications Generic Name Dose Route Start Last Admin Trade Name Freq PRN Reason Stop Dose Admin Acetaminophen 650 mg 06/19/19 13:37 06/20/19 03:40 Tylenol PO 650 mg Q4H PRN Administration Headache/Fever/Mild Pain (1-3) Hydrocodone Bitart/Acetaminophen 1 tab 06/20/19 13:02 06/23/19 00:40 [place] 5/325 PO 1 tab Q4H PRN Administration Mild Pain (1-3) Hydrocodone Bitart/Acetaminophen 2 tab 06/20/19 13:02 06/24/19 09:47 [place] 5/325 PO 2 tab Q4H PRN Administration Moderate Pain (4-6) Albuterol/Ipratropium 3 ml 06/19/19 19:00 06/24/19 12:54 Duoneb NEB 3 ml [id number] TRINI Administration Alprazolam 0.5 mg 06/23/19 15:52 06/24/19 14:20 Xanax PO 0.5 mg TIDPRN PRN Administration Anxiety/Agitation Amiodarone HCl 100 mg 06/20/19 09:00 06/24/19 08:56 Cordarone PO 100 mg BID TRINI Administration Amlodipine Besylate 10 mg 06/20/19 09:00 06/24/19 08:56 Norvasc PO 10 mg DAILY TRINI Administration Aspirin 81 mg 06/20/19 09:00 06/24/19 08:56 Ecotrin PO 81 mg DAILY TRINI Administration Atorvastatin Calcium 10 mg 06/20/19 21:00 06/23/19 20:28 Lipitor PO 10 mg HS TRINI Administration Docusate Sodium 100 mg 06/22/19 19:49 06/24/19 08:56 Colace PO 100 mg BIDPRN PRN Administration CONSTIPATION Famotidine 20 mg 06/23/19 21:00 06/24/19 08:57 Pepcid PO 20 mg BID TRINI Administration Meropenem 1 gm/ Device 50 mls @ 100 mls/hr 06/19/19 22:00 06/24/19 14:20 IVPB 50 mls Q8HR TRINI Administration Sodium Chloride 1,000 mls @ 75 mls/hr 06/23/19 12:30 06/24/19 01:20 1/2 Normal Saline IV 1,000 mls .[id number] TRINI Administration Isosorbide Mononitrate 30 mg 06/20/19 09:00 06/24/19 08:57 Imdur Er PO 30 mg DAILY TRINI Administration Ketorolac Tromethamine 15 mg 06/21/19 11:03 06/22/19 01:25 Toradol IVP 06/26/19 11:04 15 mg Q6H PRN Administration Pain Metoprolol Tartrate 50 mg 06/20/19 09:00 06/24/19 08:57 Lopressor PO 50 mg DAILY TRINI Administration Mometasone Furoate/Formoterol Fumar 2 puff 06/20/19 18:30 06/24/19 10:34 Dulera 200 Mcg/5 Mcg Inhaler INH 2 puff BID-RT TRINI Administration Morphine Sulfate 2 mg 06/19/19 13:37 06/24/19 03:50 Morphine SLOW IVP 2 mg Q4H PRN Administration Moderate Pain (4-6) Morphine Sulfate 4 mg 06/19/19 13:37 06/20/19 06:32 Morphine SLOW IVP 4 mg Q4H PRN Administration Moderate to Severe Pain (6-10) Nicotine 21 mg 06/23/19 17:00 06/23/19 16:20 Nicoderm Patch TD 21 mg 1700 TRINI Administration Prednisone 40 mg 06/23/19 08:00 06/24/19 08:57 Prednisone PO 06/27/19 08:01 40 mg QAM-WM TRINI Administration - Exam General Appearance: ill appearing Eye: PERRL, anicteric sclera ENT: no oropharyngeal lesions, dry oral mucosa Neck: supple, no JVD Heart: RRR, no murmur Respiratory: no wheezes, no rales, rhonchi Gastrointestinal: soft, non-tender, non-distended, normal bowel sounds Extremities: no cyanosis, no edema Neurological: cranial nerve grossly intact, no focal deficits Hosp A/P (1) Adenocarcinoma, lung Code(s): C34.90 - MALIGNANT NEOPLASM OF UNSP PART OF UNSP BRONCHUS OR LUNG Status: Acute Qualifiers: Laterality: right Qualified Code(s): C34.91 - Malignant neoplasm of unspecified part of right bronchus or lung (2) right malignant pleural effusion Status: Suspected (3) COPD (chronic obstructive pulmonary disease) Status: Chronic Qualifiers: COPD type: chronic bronchitis (4) CAD (coronary artery disease) Code(s): I25.10 - ATHSCL HEART DISEASE OF [place] CORONARY ARTERY W/O ANG PCTRS Status: Chronic Qualifiers: Coronary Disease-Associated Artery/Lesion type: [place] artery [place] vs. transplanted heart: [place] heart (5) Malnutrition of moderate degree Code(s): E44.0 - MODERATE PROTEIN-CALORIE MALNUTRITION Status: Chronic (6) Dyslipidemia Code(s): E78.5 - HYPERLIPIDEMIA, UNSPECIFIED Status: Chronic (7) H/O thoracic aortic aneurysm repair Code(s): Z98.890 - OTHER SPECIFIED POSTPROCEDURAL STATES; Z86.79 - PERSONAL HISTORY OF OTHER DISEASES OF THE CIRCULATORY SYSTEM Status: Chronic (8) Hypertension Code(s): I10 - ESSENTIAL (PRIMARY) HYPERTENSION Status: Chronic Qualifiers: (9) PAF (paroxysmal atrial fibrillation) Code(s): I48.0 - PAROXYSMAL ATRIAL FIBRILLATION Status: Chronic (10) Tobacco abuse Code(s): Z72.0 - TOBACCO USE Status: Chronic - Plan continue chest tube on right side await full molecular assay on lung tissue d/w , will see him in am eliazar ortega i.spirometry, amiodarone, norvasc, asp, lipitor, imdur, lopressor may dc meropenem if ok with pulm encourage po intake, ensure 1 can tid, oob to chair as tolerated has deconditioning
[2019-06-24] MEDS ORDERED: Bisacodyl 10 MG SUPP PR PRN (17:12)
[2019-06-24] MEDS ORDERED: Fleet Enema 133 ML BOT PR PRN (17:12)
[2019-06-24] MEDS: traMADol HCl 50 MG TAB PO PRN (17:51)
[2019-06-24] MEDS: Nicotine 21 MG PATCH TD SCH (17:52)
[2019-06-24] MEDS: Docusate 100 MG CAP PO SCH (21:31)
[2019-06-24] MEDS: Atorvastatin Calcium 10 MG TAB PO SCH (21:40)
[2019-06-25] MEDS: Sodium Chloride 0.45% 1,000 ML IV SCH ×2 (04:32→18:40)
[2019-06-25] MEDS: MEROPENEM 1 GM/50 ML 1 GM in Premix Bag 1 BAG IVPB SCH ×3 (05:59→21:27)
[2019-06-25] MEDS: HYDROcodone/Acetaminophen 5/325 mg Tablet PO PRN ×3 (07:03→17:19)
[2019-06-25] MEDS: Mometasone/Formoterol 120 PUFF INHALER INH SCH ×2 (07:25→19:08)
--- NOTE | 2019-06-25 07:31 | RAD ---
EXAM: Portable chest PROVIDED CLINICAL HISTORY: Chest tube COMPARISON: 06/24/2019 FINDINGS: Significant interval change with respect to the prior examination is not apparent. IMPRESSION: As above.
[2019-06-25] MEDS: predniSONE 20 MG TAB PO SCH (10:11)
[2019-06-25] MEDS: Famotidine 20 MG TAB PO SCH ×2 (10:11→19:45)
[2019-06-25] MEDS: Amiodarone 200 MG TAB PO SCH ×2 (10:12→19:45)
[2019-06-25] MEDS: Aspirin 81 mg Enteric Coated Tablet PO SCH (10:12)
[2019-06-25] MEDS: Docusate 100 MG CAP PO SCH ×2 (10:20→19:46)
[2019-06-25] MEDS: Metoprolol Tartrate 50 MG TAB PO SCH (10:20)
[2019-06-25] MEDS: Amlodipine 10 MG TAB PO SCH (10:20)
[2019-06-25] MEDS: Isosorbide Mononitrate (ER) 30 MG TAB PO SCH (10:20)
[2019-06-25] MEDS: Polyethylene Glycol 3350 17 GM Packet PO SCH (10:21)
[2019-06-25] MEDS ORDERED: ALPRAZolam 0.25 MG TAB PO PRN (13:16)
--- NOTE | 2019-06-25 13:33 | PRG ---
DATE OF SERVICE: 06/25/2019 SUBJECTIVE: Mr. Bautista still has a large air leak. He is in no distress. He is still tearful. The benzodiazepines seem to be making him more tearful when he gets some. We will switch him to Zoloft in the evening, recognizing this will take a while to work. He still has alprazolam ordered, but with the 0.5 mg dose, he became nonverbal. Last time he got that, so we will try decreasing the dose. Oncology feels there are very few therapeutic options with any reasonable chance of leading to recovery. He is basically bed bound now, can even sit up for very long. There is no way he would tolerate any type of treatment at this point in time. OBJECTIVE: LUNGS: Remarkable for equal breath sounds. HEART: Regular rhythm. ABDOMEN: Soft. VITAL SIGNS: Blood pressure is 117/55, heart rate 77, respiratory rate 18. We will continue prednisone and nebulizer treatments. I leave the prednisone at 20 mg, hoping that may stimulate his appetite little and decrease his work of breathing. We will add Zoloft in the evening. He will remain in the critical care unit with his air leak, although we may be able to move him out to different room tomorrow. Job ID: [id number]
--- NOTE | 2019-06-25 13:36 | PDOC.HOSPP ---
- Subjective Encounter Date: 06/25/19 Encounter Time: 09:00 Subjective: lethargic, not oriented not in distress - Objective Vital Signs & Weight: Vital Signs (12 hours) Temp Pulse Resp BP Pulse Ox 06/25/19 13:12 75 22 H 94 L 06/25/19 12:00 98.3 F 06/25/19 10:20 84 114/62 06/25/19 08:00 97.6 F 06/25/19 07:53 95 06/25/19 07:08 84 19 97 06/25/19 04:00 98.0 F 06/25/19 02:13 98 Weight Admit Weight 146 lb 7 oz Weight 142 lb 4.8 oz Most Recent Monitor Data Heart Rate from ECG 72 NIBP 117/55 NIBP BP-Mean 75 Respiration from ECG 13 SpO2 97 I&O: 06/24/19 06/25/19 06/26/19 06:59 06:59 06:59 Intake Total 2986 2606 460 Output Total 2105 2035 480 Balance 881 571 -20 Result Diagrams: 06/23/19 08:32 06/23/19 08:32 Hospitalist ROS - Medication Medications: Active Medications Generic Name Dose Route Start Last Admin Trade Name Freq PRN Reason Stop Dose Admin Acetaminophen 650 mg 06/19/19 13:37 06/20/19 03:40 Tylenol PO 650 mg Q4H PRN Administration Headache/Fever/Mild Pain (1-3) Hydrocodone Bitart/Acetaminophen 1 tab 06/20/19 13:02 06/25/19 12:01 [place] 5/325 PO 1 tab Q4H PRN Administration Mild Pain (1-3) Hydrocodone Bitart/Acetaminophen 2 tab 06/20/19 13:02 06/24/19 09:47 [place] 5/325 PO 2 tab Q4H PRN Administration Moderate Pain (4-6) Albuterol/Ipratropium 3 ml 06/19/19 19:00 06/25/19 13:12 Duoneb NEB 3 ml [id number] TRINI Administration Amiodarone HCl 100 mg 06/20/19 09:00 06/25/19 10:12 Cordarone PO 100 mg BID TRINI Administration Amlodipine Besylate 10 mg 06/20/19 09:00 06/25/19 10:20 Norvasc PO 10 mg DAILY TRINI Administration Aspirin 81 mg 06/20/19 09:00 06/25/19 10:12 Ecotrin PO 81 mg DAILY TRINI Administration Atorvastatin Calcium 10 mg 06/20/19 21:00 06/24/19 21:40 Lipitor PO 10 mg HS TRINI Administration Bisacodyl 10 mg 06/24/19 17:12 06/25/19 10:50 Dulcolax [place] 10 mg Q8H PRN Administration Constipation Docusate Sodium 100 mg 06/24/19 21:00 06/25/19 10:20 Colace PO 100 mg BID TRINI Administration Famotidine 20 mg 06/23/19 21:00 06/25/19 10:11 Pepcid PO 20 mg BID TRINI Administration Meropenem 1 gm/ Device 50 mls @ 100 mls/hr 06/19/19 22:00 06/25/19 05:59 IVPB 50 mls Q8HR TRINI Administration Sodium Chloride 1,000 mls @ 75 mls/hr 06/23/19 12:30 06/25/19 04:32 1/2 Normal Saline IV 1,000 mls .[id number] TRINI Administration Isosorbide Mononitrate 30 mg 06/20/19 09:00 06/25/19 10:20 Imdur Er PO 30 mg DAILY TRINI Administration Metoprolol Tartrate 50 mg 06/20/19 09:00 06/25/19 10:20 Lopressor PO 50 mg DAILY TRINI Administration Mometasone Furoate/Formoterol Fumar 2 puff 06/20/19 18:30 06/25/19 07:25 Dulera 200 Mcg/5 Mcg Inhaler INH 2 puff BID-RT TRINI Administration Morphine Sulfate 2 mg 06/19/19 13:37 06/24/19 03:50 Morphine SLOW IVP 2 mg Q4H PRN Administration Moderate Pain (4-6) Morphine Sulfate 4 mg 06/19/19 13:37 06/20/19 06:32 Morphine SLOW IVP 4 mg Q4H PRN Administration Moderate to Severe Pain (6-10) Nicotine 21 mg 06/23/19 17:00 06/24/19 17:52 Nicoderm Patch TD 21 mg 1700 TRINI Administration Ondansetron HCl 4 mg 06/20/19 13:02 06/25/19 00:17 Zofran IVP 4 mg Q6H PRN Administration Nausea/Vomiting Polyethylene Glycol 17 gm 06/25/19 09:00 06/25/19 10:21 Miralax PO 17 gm DAILY TRINI Administration Tramadol HCl 50 mg 06/20/19 08:48 06/24/19 17:51 Ultram PO 50 mg Q6H PRN Administration Moderate to Severe Pain (6-10) - Exam General Appearance: ill appearing Eye: PERRL, anicteric sclera ENT: no oropharyngeal lesions, dry oral mucosa Neck: supple, no JVD Heart: RRR, no murmur Respiratory: no wheezes, rhonchi Gastrointestinal: soft, non-tender, non-distended, normal bowel sounds Extremities: no cyanosis, no edema Neurological: cranial nerve grossly intact, no focal deficits Hosp A/P (1) Adenocarcinoma, lung Code(s): C34.90 - MALIGNANT NEOPLASM OF UNSP PART OF UNSP BRONCHUS OR LUNG Status: Acute Qualifiers: Laterality: right Qualified Code(s): C34.91 - Malignant neoplasm of unspecified part of right bronchus or lung (2) right malignant pleural effusion Status: Acute (3) COPD (chronic obstructive pulmonary disease) Status: Chronic Qualifiers: COPD type: chronic bronchitis (4) CAD (coronary artery disease) Code(s): I25.10 - ATHSCL HEART DISEASE OF [place] CORONARY ARTERY W/O ANG PCTRS Status: Chronic Qualifiers: Coronary Disease-Associated Artery/Lesion type: [place] artery [place] vs. transplanted heart: [place] heart (5) Malnutrition of moderate degree Code(s): E44.0 - MODERATE PROTEIN-CALORIE MALNUTRITION Status: Chronic (6) Dyslipidemia Code(s): E78.5 - HYPERLIPIDEMIA, UNSPECIFIED Status: Chronic (7) H/O thoracic aortic aneurysm repair Code(s): Z98.890 - OTHER SPECIFIED POSTPROCEDURAL STATES; Z86.79 - PERSONAL HISTORY OF OTHER DISEASES OF THE CIRCULATORY SYSTEM Status: Chronic (8) Hypertension Code(s): I10 - ESSENTIAL (PRIMARY) HYPERTENSION Status: Chronic Qualifiers: (9) PAF (paroxysmal atrial fibrillation) Code(s): I48.0 - PAROXYSMAL ATRIAL FIBRILLATION Status: Chronic (10) Tobacco abuse Code(s): Z72.0 - TOBACCO USE Status: Chronic - Plan continue chest tube on right side, still has air leak await full molecular assay on lung tissue nebs, dulera, i.spirometry, amiodarone, norvasc, asp, lipitor, imdur, lopressor may dc meropenem if ok with pulm encourage po intake, ensure 1 can tid, oob to chair as tolerated has severe deconditioning prognosis guarded
[2019-06-25] MEDS: Nicotine 21 MG PATCH TD SCH (17:20)
--- NOTE | 2019-06-25 19:28 | CON ---
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 HISTORY: This is a 69 years old male who was found to have a right hilar mass with the right and left upper lobe nodules in July 2018. Previous workup included bronchoscopy, and transbronchial biopsy and pleural fluid cytology. These were nondiagnostic. He was to have a biopsy of the pulmonary mass, but the scheduled and not carried out. During this hospitalization, he was found to have a very large right pleural effusion. He underwent a right thoracotomy with decortication and biopsy on 06/20. The patient was found to have extensive pleural involvement. The frozen section biopsy returned adenocarcinoma. 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 The patient is DNR, is currently in ICU and appears severely deconditioned. He was not able to give significant history because of his mentally impaired/confused state. Talking to the nurse, the patient apparently lives with his mother. He seems to have lost weight and currently appears to be bed ridden. PAST HISTORY: Recent history of pneumonia, COPD, coronary artery disease and hypertension. PAST SURGERIES: Include coronary artery bypass graft in 2017, aortic dissection and repair in 2017 and left knee surgery. PERSONAL AND SOCIAL HISTORY: The patient currently continues to smoke. He does not have any children. He also used to drink in the past. His sister, Gretel Landa is his surrogate decision maker. FAMILY HISTORY: Positive for hypertension, coronary artery disease. CURRENT HOME MEDICATIONS: Include: 1. Aspirin. 2. Metoprolol. 3. Clonidine. 4. Amiodarone. 5. Amlodipine. 6. Albuterol by neb treatment. 7. Lisinopril. PHYSICAL EXAMINATION: GENERAL: The patient's mentation seems to be quite impaired. He is in bed and on high-flow oxygen. VITAL SIGNS: Pulse 84, blood pressure 114/67, temperature 97.6. HEENT: Grossly unremarkable. There is no peripheral lymphadenopathy. CHEST: Emphysematous. HEART: S1, S2. ABDOMEN: Scaphoid. Bowel sounds present. EXTREMITIES: Without pedal edema. LABORATORY DATA: CBC shows WBC of 19,600, hemoglobin 10.4, platelet count 386,000. Chemistry profile: Normal BUN, creatinine, and electrolytes. Albumin 2.8. ALT and AST normal. Alkaline phosphatase also normal. IMAGING STUDIES: He had a PET scan in August 2018 showing increased uptake and right perihilar mass and left upper lobe nodules. 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 The patient is bed ridden and has still a lot of and his performance status is extremely poor. I agree with the do-not resuscitate and care under hospice. If for some reason, if the patient starts to walk, he could be reconsidered for some form of treatment depending on molecular markers. Thanks very much for allowing me to participate in this patient's care. Job ID: [id number]
[2019-06-25] MEDS: Atorvastatin Calcium 10 MG TAB PO SCH (19:46)
[2019-06-25] MEDS: Morphine 2 MG/ML SYRINGE SLOW IVP PRN ×2 (19:47→23:55)
[2019-06-25] MEDS: Promethazine HCl 25 MG/ML VIAL IM PRN (23:55)
[2019-06-26 05:07] LABS: #Lymphocytes 0.4 thou/uL (1.20-3.40); #Monocytes 0.9 thou/uL (0.11-0.59); #Neutrophils 11.3 thou/uL (1.40-6.50); %Eosinophils 0.1 % (0.0-10.0); %Lymphocytes 3.5 % (21.0-51.0); %Neutrophils 89.5 % (42.0-75.0); Hemoglobin 10.4 g/dL (14.0-18.0); Mean Corpuscular HGB CONC 32.2 g/dL (32.0-36.0); Mean Corpuscular Hemoglobin 29.9 pg (27.0-31.0); Mean Corpuscular Volume 93.1 fL (78.0-98.0); Platelet Count 431 thou/uL (130-400); RBC Distribution Width 12.9 % (11.5-14.5); Red Blood Cell (RBC) Count 3.46 mill/uL (4.70-6.10); White Blood Cell (WBC) Count 12.6 thou/uL (4.8-10.8)
[2019-06-26 05:25] LABS: Anion Gap 10 mmol/L (10-20); BUN (Urea Nitrogen) 20 mg/dL (8.4-25.7); Calc. Creatinine Clearance 118 mL/min (70-130); Carbon Dioxide 29 mmol/L (23-31); Chloride 103 mmol/L (98-107); Estimated GFR-MDRD Greater than 90; Glucose 98 mg/dL (80-115); Potassium 5.2 mmol/L (3.5-5.1); Sodium 137 mmol/L (136-145)
[2019-06-26] MEDS: MEROPENEM 1 GM/50 ML 1 GM in Premix Bag 1 BAG IVPB SCH ×3 (06:06→21:21)
[2019-06-26] MEDS: Morphine 2 MG/ML SYRINGE SLOW IVP PRN ×4 (06:54→21:14)
[2019-06-26] MEDS: Mometasone/Formoterol 120 PUFF INHALER INH SCH ×2 (08:20→19:23)
[2019-06-26] MEDS: Sodium Chloride 0.45% 1,000 ML IV SCH ×2 (08:24→21:14)
[2019-06-26] MEDS: predniSONE 20 MG TAB PO SCH (08:26)
[2019-06-26] MEDS: Isosorbide Mononitrate (ER) 30 MG TAB PO SCH (08:26)
[2019-06-26] MEDS: Aspirin 81 mg Enteric Coated Tablet PO SCH (08:26)
[2019-06-26] MEDS: Polyethylene Glycol 3350 17 GM Packet PO SCH (08:26)
[2019-06-26] MEDS: Famotidine 20 MG TAB PO SCH ×2 (08:26→21:21)
[2019-06-26] MEDS: Metoprolol Tartrate 50 MG TAB PO SCH (08:27)
[2019-06-26] MEDS: Docusate 100 MG CAP PO SCH ×2 (08:27→21:21)
[2019-06-26] MEDS: Amlodipine 10 MG TAB PO SCH (08:27)
[2019-06-26] MEDS: Amiodarone 200 MG TAB PO SCH ×2 (08:27→21:21)
--- NOTE | 2019-06-26 11:54 | PDOC.HOSPP ---
- Subjective Encounter Date: 06/26/19 Encounter Time: 10:30 Subjective: is more awake than yesterday but still lethargic and not fully oriented is on high flow around 40% fio2 - Objective Vital Signs & Weight: Vital Signs (12 hours) Temp Pulse Pulse Pulse Pulse Resp BP 06/26/19 09:22 100 94 86 127/57 L 06/26/19 08:27 81 06/26/19 08:21 06/26/19 08:19 81 19 06/26/19 04:00 97.9 F 06/26/19 00:00 97.8 F BP BP Pulse Ox Pulse Ox Pulse Ox Pulse Ox 06/26/19 09:22 144/69 H 128/65 92 L 86 L 94 L 06/26/19 08:27 06/26/19 08:21 95 06/26/19 08:19 95 06/26/19 04:00 06/26/19 00:00 Weight Admit Weight 146 lb 7 oz Weight 141 lb 12.8 oz Most Recent Monitor Data Heart Rate from ECG 80 NIBP 125/64 NIBP BP-Mean 84 Respiration from ECG 18 SpO2 97 I&O: 06/25/19 06/26/19 06/27/19 06:59 06:59 06:59 Intake Total 2606 885 Output Total 8985 0665 30 [facility] 571 -1645 -30 Result Diagrams: 06/26/19 04:50 06/26/19 04:50 Hospitalist ROS - Medication Medications: Active Medications Generic Name Dose Route Start Last Admin Trade Name Freq PRN Reason Stop Dose Admin Acetaminophen 650 mg 06/19/19 13:37 06/20/19 03:40 Tylenol PO 650 mg Q4H PRN Administration Headache/Fever/Mild Pain (1-3) Hydrocodone Bitart/Acetaminophen 1 tab 06/20/19 13:02 06/25/19 17:19 [place] 5/325 PO 1 tab Q4H PRN Administration Mild Pain (1-3) Hydrocodone Bitart/Acetaminophen 2 tab 06/20/19 13:02 06/24/19 09:47 [place] 5/325 PO 2 tab Q4H PRN Administration Moderate Pain (4-6) Albuterol/Ipratropium 3 ml 06/19/19 19:00 06/26/19 08:19 Duoneb NEB 3 ml [id number] TRINI Administration Amiodarone HCl 100 mg 06/20/19 09:00 06/26/19 08:27 Cordarone PO 100 mg BID TRINI Administration Amlodipine Besylate 10 mg 06/20/19 09:00 06/26/19 08:27 Norvasc PO 10 mg DAILY TRINI Administration Aspirin 81 mg 06/20/19 09:00 06/26/19 08:26 Ecotrin PO 81 mg DAILY TRINI Administration Atorvastatin Calcium 10 mg 06/20/19 21:00 06/25/19 19:46 Lipitor PO 10 mg HS TRINI Administration Bisacodyl 10 mg 06/24/19 17:12 06/25/19 10:50 Dulcolax [place] 10 mg Q8H PRN Administration Constipation Docusate Sodium 100 mg 06/24/19 21:00 06/26/19 08:27 Colace PO 100 mg BID TRINI Administration Famotidine 20 mg 06/23/19 21:00 06/26/19 08:26 Pepcid PO 20 mg BID TRINI Administration Meropenem 1 gm/ Device 50 mls @ 100 mls/hr 06/19/19 22:00 06/26/19 06:06 IVPB 50 mls Q8HR TRINI Administration Sodium Chloride 1,000 mls @ 75 mls/hr 06/23/19 12:30 06/26/19 08:24 1/2 Normal Saline IV 1,000 mls .[id number] TRINI Administration Isosorbide Mononitrate 30 mg 06/20/19 09:00 06/26/19 08:26 Imdur Er PO 30 mg DAILY TRINI Administration Metoprolol Tartrate 50 mg 06/20/19 09:00 06/26/19 08:27 Lopressor PO 50 mg DAILY TRINI Administration Mometasone Furoate/Formoterol Fumar 2 puff 06/20/19 18:30 06/26/19 08:20 Dulera 200 Mcg/5 Mcg Inhaler INH 2 puff BID-RT TRINI Administration Morphine Sulfate 2 mg 06/25/19 18:31 06/26/19 11:22 Morphine SLOW IVP 2 mg Q4H PRN Administration Pain Nicotine 21 mg 06/23/19 17:00 06/25/19 17:20 Nicoderm Patch TD 21 mg 1700 TRINI Administration Ondansetron HCl 4 mg 06/20/19 13:02 06/25/19 00:17 Zofran IVP 4 mg Q6H PRN Administration Nausea/Vomiting Polyethylene Glycol 17 gm 06/25/19 09:00 06/26/19 08:26 Miralax PO 17 gm DAILY TRINI Administration Prednisone 20 mg 06/26/19 08:00 06/26/19 08:26 Prednisone PO 20 mg QAM-WM TRINI Administration Promethazine HCl 12.5 mg 06/20/19 13:02 06/25/19 23:55 Phenergan IM 12.5 mg Q4H PRN Administration Nausea/Vomiting Sertraline HCl 50 mg 06/25/19 22:00 06/25/19 21:27 Zoloft PO 50 mg 2200 TRINI Administration Tramadol HCl 50 mg 06/20/19 08:48 06/24/19 17:51 Ultram PO 50 mg Q6H PRN Administration Moderate to Severe Pain (6-10) - Exam General Appearance: ill appearing Eye: PERRL, anicteric sclera ENT: no oropharyngeal lesions, dry oral mucosa Neck: supple, no JVD Heart: RRR, no murmur Respiratory: no rales, rhonchi Respiratory - other findings: right chest tube+ Gastrointestinal: soft, non-tender, non-distended, normal bowel sounds Extremities: no cyanosis, no edema Neurological: cranial nerve grossly intact, no focal deficits Hosp A/P (1) Adenocarcinoma, lung Code(s): C34.90 - MALIGNANT NEOPLASM OF UNSP PART OF UNSP BRONCHUS OR LUNG Status: Acute Qualifiers: Laterality: right Qualified Code(s): C34.91 - Malignant neoplasm of unspecified part of right bronchus or lung (2) right malignant pleural effusion Status: Acute (3) COPD (chronic obstructive pulmonary disease) Status: Chronic Qualifiers: COPD type: chronic bronchitis (4) CAD (coronary artery disease) Code(s): I25.10 - ATHSCL HEART DISEASE OF [place] CORONARY ARTERY W/O ANG PCTRS Status: Chronic Qualifiers: Coronary Disease-Associated Artery/Lesion type: [place] artery [place] vs. transplanted heart: [place] heart (5) Malnutrition of moderate degree Code(s): E44.0 - MODERATE PROTEIN-CALORIE MALNUTRITION Status: Chronic (6) Dyslipidemia Code(s): E78.5 - HYPERLIPIDEMIA, UNSPECIFIED Status: Chronic (7) H/O thoracic aortic aneurysm repair Code(s): Z98.890 - OTHER SPECIFIED POSTPROCEDURAL STATES; Z86.79 - PERSONAL HISTORY OF OTHER DISEASES OF THE CIRCULATORY SYSTEM Status: Chronic (8) Hypertension Code(s): I10 - ESSENTIAL (PRIMARY) HYPERTENSION Status: Chronic Qualifiers: (9) PAF (paroxysmal atrial fibrillation) Code(s): I48.0 - PAROXYSMAL ATRIAL FIBRILLATION Status: Chronic (10) Tobacco abuse Code(s): Z72.0 - TOBACCO USE Status: Chronic - Plan has chest tube on right side await full molecular assay on lung tissue, likely not a candidate for chemo/ immunotherapy due to severe deconditioning. nebs, dulera, i.spirometry, amiodarone, norvasc, asp, lipitor, imdur, lopressor may dc meropenem if ok with pulm encourage po intake, ensure 1 can tid, oob to chair as tolerated has severe deconditioning prognosis guarded
--- NOTE | 2019-06-26 11:57 | PRG ---
DATE OF SERVICE: 06/26/2019 SUBJECTIVE: Mr. Bautista is doing reasonably well. He is nowhere near as tearful as he was yesterday, but he is still upset with a flat affect. He still has large air leak. OBJECTIVE: VITAL SIGNS: Heart rate is 80, respiratory rates in the teens, oximetry is 95% on high-flow oxygen, and blood pressure 118/67. LUNGS: Unchanged. HEART: Unchanged. ABDOMEN: Unchanged. LABORATORY DATA: White count 12.6, hemoglobin 10.4, and platelets 431. Sodium 137, potassium 5.2, chloride 103, bicarb 29, BUN 20, and creatinine 0.54. IMPRESSION: 1. Locally advanced non-small cell cancer of the right chest, status post thoracotomy for what was initially felt to be a loculated parapneumonic effusion. 2. Atrial fibrillation history. 3. Deconditioning with weight loss. PLAN: Continue supportive care. I would think he would be a candidate to switch antimicrobial therapy to p.o. therapy. Dr. Cisse has seen him this admission, we will defer to his judgment. He could probably be transferred to the intermediate care unit at some point. Job ID: [id number]
[2019-06-26] MEDS: Nicotine 21 MG PATCH TD SCH (16:54)
[2019-06-26] MEDS: HYDROcodone/Acetaminophen 5/325 mg Tablet PO PRN (18:00)
[2019-06-26] MEDS: Promethazine HCl 25 MG/ML VIAL IM PRN (21:14)
[2019-06-26] MEDS: Atorvastatin Calcium 10 MG TAB PO SCH (21:21)
[2019-06-27] MEDS: Morphine 2 MG/ML SYRINGE SLOW IVP PRN ×3 (01:27→23:08)
[2019-06-27] MEDS: MEROPENEM 1 GM/50 ML 1 GM in Premix Bag 1 BAG IVPB SCH ×3 (05:22→21:29)
[2019-06-27] MEDS: Mometasone/Formoterol 120 PUFF INHALER INH SCH ×2 (07:36→19:04)
[2019-06-27] MEDS: predniSONE 20 MG TAB PO SCH (08:08)
[2019-06-27] MEDS: Isosorbide Mononitrate (ER) 30 MG TAB PO SCH (08:43)
[2019-06-27] MEDS: Amiodarone 200 MG TAB PO SCH ×2 (08:43→20:45)
[2019-06-27] MEDS: Aspirin 81 mg Enteric Coated Tablet PO SCH (08:44)
[2019-06-27] MEDS: Amlodipine 10 MG TAB PO SCH (08:44)
[2019-06-27] MEDS: Famotidine 20 MG TAB PO SCH ×2 (08:44→20:46)
[2019-06-27] MEDS: Metoprolol Tartrate 50 MG TAB PO SCH (08:44)
[2019-06-27] MEDS: Docusate 100 MG CAP PO SCH ×2 (08:44→20:46)
[2019-06-27] MEDS: Polyethylene Glycol 3350 17 GM Packet PO SCH (08:45)
[2019-06-27] MEDS: HYDROcodone/Acetaminophen 5/325 mg Tablet PO PRN ×3 (08:51→20:46)
--- NOTE | 2019-06-27 10:18 | RAD ---
Frontal radiograph chest: 06/27/2019 COMPARISON: 06/25/2019 HISTORY: Shortness of breath FINDINGS: Cutaneous adamaris are noted laterally on the right. There is a small right-sided pneumothor ax laterally within the mid right lung zone and right costophrenic angle region. There are 2 stable right-sided chest tubes are present. Persistent dense opacity in the left base suggests a combination of left lower lobe consolidation/col lapse and left pleural fluid as before. There is dense interstitial and alveolar opacity involving the mid right lung zone and the right lung base with associated stable right pleural effusion. [place] e sternotomy wires and mediastinal clips are present. Stent graft material overlies the thoracic aorta. Stable left upper extremity PICC. IMPRESSION: Stable appearance of the chest as described above.
--- NOTE | 2019-06-27 11:45 | PRG ---
DATE OF SERVICE: 06/27/2019 SUBJECTIVE: He still has chest tube and his air leak smaller. OBJECTIVE: VITAL SIGNS: Heart rate is 92, blood pressure 125/69, respiratory rate is in the 20s. LUNGS: Remarkable for distant breath sounds on the right. Left lung is clear. HEART: Regular rhythm. ABDOMEN: Soft. EXTREMITIES: Without edema. He is getting progressively weaker each week. LABORATORY DATA: He has no new lab today other than glucose. IMPRESSION: 1. Advanced non-small cell lung cancer involving his right chest and pleural space. 2. Extreme deconditioning. PLAN: If he did not get stronger, he will be a candidate for any type of therapy. I doubt seriously that he will be able to increase his strength. He can barely sit on the side of the bed at this point. He says he is willing to try. I have explained to family this is an incredibly sad and difficult situation. I do not feel he has any type of good therapeutic options given his severe weakness. He still has chest tube in as well. Hospice may be the best option. Job ID: [id number]
[2019-06-27] MEDS: Sodium Chloride 0.45% 1,000 ML IV SCH (12:41)
--- NOTE | 2019-06-27 12:58 | PDOC.HOSPP ---
- Subjective Encounter Date: 06/27/19 Encounter Time: 11:45 Subjective: is lethargic, awakens easily not oriented, tries to talk a lot is not eating much - Objective Vital Signs & Weight: Vital Signs (12 hours) Temp Pulse Resp BP Pulse Ox 06/27/19 12:00 97.8 F 06/27/19 08:44 92 125/69 06/27/19 07:36 92 L 06/27/19 07:34 92 24 H 92 L 06/27/19 07:27 94 L 06/27/19 07:00 97.7 F 06/27/19 04:00 97.9 F Weight Admit Weight 146 lb 7 oz Weight 142 lb 6.4 oz Most Recent Monitor Data Heart Rate from ECG 79 NIBP 142/77 NIBP BP-Mean 98 Respiration from ECG 28 SpO2 92 I&O: 06/26/19 06/27/19 06/28/19 06:59 06:59 06:59 Intake Total 885 2650 480 Output Total 2530 2550 570 Balance -1645 100 -90 Result Diagrams: 06/26/19 04:50 06/26/19 04:50 Additional Labs: Accuchecks 06/27/19 10:18 POC Glucose 184 H Hospitalist ROS - Medication Medications: Active Medications Generic Name Dose Route Start Last Admin Trade Name Freq PRN Reason Stop Dose Admin Acetaminophen 650 mg 06/19/19 13:37 06/20/19 03:40 Tylenol PO 650 mg Q4H PRN Administration Headache/Fever/Mild Pain (1-3) Hydrocodone Bitart/Acetaminophen 1 tab 06/20/19 13:02 06/27/19 08:51 [place] 5/325 PO 1 tab Q4H PRN Administration Mild Pain (1-3) Hydrocodone Bitart/Acetaminophen 2 tab 06/20/19 13:02 06/24/19 09:47 [place] 5/325 PO 2 tab Q4H PRN Administration Moderate Pain (4-6) Albuterol/Ipratropium 3 ml 06/19/19 19:00 06/27/19 07:34 Duoneb NEB 3 ml [id number] TRINI Administration Amiodarone HCl 100 mg 06/20/19 09:00 06/27/19 08:43 Cordarone PO 100 mg BID TRINI Administration Amlodipine Besylate 10 mg 06/20/19 09:00 12/24/19 08:44 Norvasc PO 10 mg DAILY TRINI Administration Aspirin 81 mg 06/20/19 09:00 06/27/19 08:44 Ecotrin PO 81 mg DAILY TRINI Administration Atorvastatin Calcium 10 mg 06/20/19 21:00 06/26/19 21:21 Lipitor PO 10 mg HS TRINI Administration Bisacodyl 10 mg 06/24/19 17:12 06/25/19 10:50 Dulcolax [place] 10 mg Q8H PRN Administration Constipation Docusate Sodium 100 mg 06/24/19 21:00 06/27/19 08:44 Colace PO 100 mg BID TRINI Administration Famotidine 20 mg 06/23/19 21:00 06/27/19 08:44 Pepcid PO 20 mg BID TRINI Administration Meropenem 1 gm/ Device 50 mls @ 100 mls/hr 06/19/19 22:00 06/27/19 05:22 IVPB 50 mls Q8HR TRINI Administration Sodium Chloride 1,000 mls @ 75 mls/hr 06/23/19 12:30 06/27/19 12:41 1/2 Normal Saline IV 1,000 mls .[id number] TRINI Administration Isosorbide Mononitrate 30 mg 06/20/19 09:00 06/27/19 08:43 Imdur Er PO 30 mg DAILY TRINI Administration Metoprolol Tartrate 50 mg 06/20/19 09:00 06/27/19 08:44 Lopressor PO 50 mg DAILY TRINI Administration Mometasone Furoate/Formoterol Fumar 2 puff 06/20/19 18:30 06/27/19 07:36 Dulera 200 Mcg/5 Mcg Inhaler INH 2 puff BID-RT TRINI Administration Morphine Sulfate 2 mg 06/25/19 18:31 06/27/19 05:22 Morphine SLOW IVP 2 mg Q4H PRN Administration Pain Nicotine 21 mg 06/23/19 17:00 06/26/19 16:54 Nicoderm Patch TD 21 mg 1700 TRINI Administration Ondansetron HCl 4 mg 06/20/19 13:02 06/25/19 00:17 Zofran IVP 4 mg Q6H PRN Administration Nausea/Vomiting Polyethylene Glycol 17 gm 06/25/19 09:00 12/24/19 08:45 Miralax PO 17 gm DAILY TRINI Administration Prednisone 20 mg 06/26/19 08:00 06/27/19 08:08 Prednisone PO 20 mg QAM-WM TRINI Administration Promethazine HCl 12.5 mg 06/20/19 13:02 06/26/19 21:14 Phenergan IM 12.5 mg Q4H PRN Administration Nausea/Vomiting Sertraline HCl 50 mg 06/25/19 22:00 06/26/19 21:21 Zoloft PO 50 mg 2200 TRINI Administration Tramadol HCl 50 mg 06/20/19 08:48 06/24/19 17:51 Ultram PO 50 mg Q6H PRN Administration Moderate to Severe Pain (6-10) - Exam General Appearance: ill appearing Eye: PERRL, anicteric sclera ENT: no oropharyngeal lesions, dry oral mucosa Neck: supple, no JVD Heart: RRR, no murmur Respiratory: no wheezes, rales, rhonchi Respiratory - other findings: chest tube right Gastrointestinal: soft, non-tender, non-distended, normal bowel sounds Extremities: no cyanosis, 1+ LE edema Neurological: cranial nerve grossly intact, no focal deficits Hosp A/P (1) Adenocarcinoma, lung Code(s): C34.90 - MALIGNANT NEOPLASM OF UNSP PART OF UNSP BRONCHUS OR LUNG Status: Acute Qualifiers: Laterality: right Qualified Code(s): C34.91 - Malignant neoplasm of unspecified part of right bronchus or lung (2) right malignant pleural effusion Status: Acute (3) COPD (chronic obstructive pulmonary disease) Status: Chronic Qualifiers: COPD type: chronic bronchitis (4) CAD (coronary artery disease) Code(s): I25.10 - ATHSCL HEART DISEASE OF [place] CORONARY ARTERY W/O ANG PCTRS Status: Chronic Qualifiers: Coronary Disease-Associated Artery/Lesion type: [place] artery [place] vs. transplanted heart: [place] heart (5) Malnutrition of moderate degree Code(s): E44.0 - MODERATE PROTEIN-[place]OR[place] MALNUTRITION Status: Chronic (6) Dyslipidemia Code(s): E78.5 - HYPERLIPIDEMIA, UNSPECIFIED Status: Chronic (7) H/O thoracic aortic aneurysm repair Code(s): Z98.890 - OTHER SPECIFIED POSTPROCEDURAL STATES; Z86.79 - PERSONAL HISTORY OF OTHER DISEASES OF THE CIRCULATORY SYSTEM Status: Chronic (8) Hypertension Code(s): I10 - ESSENTIAL (PRIMARY) HYPERTENSION Status: Chronic Qualifiers: (9) PAF (paroxysmal atrial fibrillation) Code(s): I48.0 - PAROXYSMAL ATRIAL FIBRILLATION Status: Chronic (10) Tobacco abuse Code(s): Z72.0 - TOBACCO USE Status: Chronic - Plan has chest tube on right side await full molecular assay on lung tissue, likely not a candidate for chemo/ immunotherapy due to severe deconditioning. nebs, dulera, i.spirometry, amiodarone, norvasc, asp, lipitor, imdur, lopressor has whitening of right lower chest on cxr today encourage po intake, ensure 1 can tid, oob to chair as tolerated has severe deconditioning prognosis guarded
[2019-06-27] MEDS: Nicotine 21 MG PATCH TD SCH (17:06)
[2019-06-27] MEDS: Atorvastatin Calcium 10 MG TAB PO SCH (20:46)
[2019-06-28] MEDS: HYDROcodone/Acetaminophen 5/325 mg Tablet PO PRN ×3 (03:57→21:38)
[2019-06-28] MEDS: Sodium Chloride 0.45% 1,000 ML IV SCH ×2 (04:03→15:56)
[2019-06-28 05:49] VITALS: BMI 17.7
[2019-06-28] MEDS: MEROPENEM 1 GM/50 ML 1 GM in Premix Bag 1 BAG IVPB SCH ×3 (05:54→21:37)
[2019-06-28] MEDS: Mometasone/Formoterol 120 PUFF INHALER INH SCH ×2 (07:50→18:49)
[2019-06-28 08:08] LABS: ALT (SGPT) 23 U/L (8-55); AST (SGOT) 26 U/L (5-34); Albumin 2.3 g/dL (3.4-4.8); Alkaline Phosphatase 82 U/L (40-110); Anion Gap 10 mmol/L (10-20); BUN (Urea Nitrogen) 16 mg/dL (8.4-25.7); Bilirubin, Total 0.5 mg/dL (0.2-1.2); Calc. Creatinine Clearance 120 mL/min (70-130); Calcium 10.3 mg/dL (7.8-10.44); Carbon Dioxide 32 mmol/L (23-31); Chloride 99 mmol/L (98-107); Estimated GFR-MDRD Greater than 90; Globulin 3.3 g/dL (2.4-3.5); Glucose 102 mg/dL (80-115); Potassium 4.6 mmol/L (3.5-5.1); Protein, Total 5.6 g/dL (5.8-8.1); Sodium 136 mmol/L (136-145)
[2019-06-28 08:09] LABS: Hemoglobin 11.7 g/dL (14.0-18.0); Hypersemented Neutrophil SLIGHT; Lymphocytes 6 % (21-51); MDiff Complete? YES; Mean Corpuscular HGB CONC 32.5 g/dL (32.0-36.0); Mean Corpuscular Hemoglobin 29.9 pg (27.0-31.0); Mean Corpuscular Volume 92.1 fL (78.0-98.0); Mean Platelet Volume 6.9 fL (7.4-10.4); Monocytes 2 % (0-10); Neutrophil 92 % (42-75); Platelet Count 500 thou/uL (130-400); RBC Distribution Width 12.8 % (11.5-14.5); Red Blood Cell (RBC) Count 3.92 mill/uL (4.70-6.10); White Blood Cell (WBC) Count 19.3 thou/uL (4.8-10.8)
[2019-06-28] MEDS: predniSONE 20 MG TAB PO SCH (08:27)
[2019-06-28] MEDS: Isosorbide Mononitrate (ER) 30 MG TAB PO SCH (08:50)
[2019-06-28] MEDS: Amlodipine 10 MG TAB PO SCH (08:51)
[2019-06-28] MEDS: Aspirin 81 mg Enteric Coated Tablet PO SCH (08:51)
[2019-06-28] MEDS: Amiodarone 200 MG TAB PO SCH ×2 (08:51→21:35)
[2019-06-28] MEDS: Metoprolol Tartrate 50 MG TAB PO SCH (08:52)
[2019-06-28] MEDS: Docusate 100 MG CAP PO SCH ×2 (08:52→21:36)
[2019-06-28] MEDS: Polyethylene Glycol 3350 17 GM Packet PO SCH (08:53)
[2019-06-28] MEDS: Famotidine 20 MG TAB PO SCH ×2 (08:53→21:36)
[2019-06-28 08:54] VITALS: BP 135/69
--- NOTE | 2019-06-28 11:12 | PRG ---
DATE OF SERVICE: 06/28/2019 SUBJECTIVE: The patient is doing about the same. Had no acute complaints. OBJECTIVE: VITAL SIGNS: Temperature 97.7, pulse 79, blood pressure 131/72, and O2 saturation 97%. HEENT: He has a rounded lesion over his right cheek region. He is on high-flow nasal cannula. NECK: No adenopathy or JVD. LUNGS: Almost absent breath sounds on the right, clear on the left. CARDIAC: S1 and S2. Regular. ABDOMEN: Soft. EXTREMITIES: Severe wasting of his muscles. LABORATORY DATA: White blood cell count 19.3, hematocrit 36.1, and platelet count 500. Sodium 136, potassium 4.6, chloride 99, CO2 of 32, BUN 16, creatinine 0.5, and glucose 102. ASSESSMENT: 1. Metastatic adenocarcinoma. 2. Hypoxic respiratory failure. PLAN: It does not look like that this patient is going to do very well in the short term. I would agree that hospice is probably the best option. I am not sure if this patient is able to make medical decisions for himself or not. Job ID: [id number]
--- NOTE | 2019-06-28 13:45 | PDOC.HOSPP ---
- Subjective Encounter Date: 06/28/19 Encounter Time: 09:40 Subjective: awake, not oriented follows verbal stimuli has sob - Objective Vital Signs & Weight: Vital Signs (12 hours) Temp Pulse Resp BP Pulse Ox 06/28/19 12:45 73 22 H 98 06/28/19 12:00 98.0 F 100 06/28/19 08:51 82 135/69 06/28/19 08:00 97.8 F 95 06/28/19 07:50 95 06/28/19 07:48 86 21 H 96 06/28/19 04:00 97.7 F 06/28/19 01:54 98 Weight Admit Weight 146 lb 7 oz Weight 147 lb 9.6 oz Most Recent Monitor Data Heart Rate from ECG 69 NIBP 130/67 NIBP BP-Mean 88 Respiration from ECG 15 SpO2 100 I&O: 06/27/19 06/28/19 06/29/19 06:59 06:59 06:59 Intake Total 2650 3041 320 Output Total 2550 1940 240 Balance 100 1101 80 Result Diagrams: 06/28/19 07:42 06/28/19 07:42 Hospitalist ROS - Medication Medications: Active Medications Generic Name Dose Route Start Last Admin Trade Name Freq PRN Reason Stop Dose Admin Acetaminophen 650 mg 06/19/19 13:37 06/20/19 03:40 Tylenol PO 650 mg Q4H PRN Administration Headache/Fever/Mild Pain (1-3) Hydrocodone Bitart/Acetaminophen 1 tab 06/20/19 13:02 06/27/19 16:54 [place] 5/325 PO 1 tab Q4H PRN Administration Mild Pain (1-3) Hydrocodone Bitart/Acetaminophen 2 tab 06/20/19 13:02 06/28/19 08:27 [place] 5/325 PO 2 tab Q4H PRN Administration Moderate Pain (4-6) Albuterol/Ipratropium 3 ml 06/19/19 19:00 06/28/19 12:45 Duoneb NEB 3 ml [id number] TRINI Administration Amiodarone HCl 100 mg 06/20/19 09:00 06/28/19 08:51 Cordarone PO 100 mg BID TRINI Administration Amlodipine Besylate 10 mg 06/20/19 09:00 06/28/19 08:51 Norvasc PO 10 mg DAILY TRINI Administration Aspirin 81 mg 06/20/19 09:00 06/28/19 08:51 Ecotrin PO 81 mg DAILY TRINI Administration Atorvastatin Calcium 10 mg 06/20/19 21:00 06/27/19 20:46 Lipitor PO 10 mg HS TRINI Administration Bisacodyl 10 mg 06/24/19 17:12 06/25/19 10:50 Dulcolax [place] 10 mg Q8H PRN Administration Constipation Docusate Sodium 100 mg 06/24/19 21:00 06/28/19 08:52 Colace PO 100 mg BID TRINI Administration Famotidine 20 mg 06/23/19 21:00 06/28/19 08:53 Pepcid PO 20 mg BID TRINI Administration Meropenem 1 gm/ Device 50 mls @ 100 mls/hr 06/19/19 22:00 06/28/19 05:54 IVPB 50 mls Q8HR TRINI Administration Sodium Chloride 1,000 mls @ 75 mls/hr 06/23/19 12:30 06/28/19 04:03 1/2 Normal Saline IV 1,000 mls .[id number] TRINI Administration Isosorbide Mononitrate 30 mg 06/20/19 09:00 06/28/19 08:50 Imdur Er PO 30 mg DAILY TRINI Administration Metoprolol Tartrate 50 mg 06/20/19 09:00 06/28/19 08:52 Lopressor PO 50 mg DAILY TRINI Administration Mometasone Furoate/Formoterol Fumar 2 puff 06/20/19 18:30 06/28/19 07:50 Dulera 200 Mcg/5 Mcg Inhaler INH 2 puff BID-RT TRINI Administration Morphine Sulfate 2 mg 06/25/19 18:31 06/27/19 23:08 Morphine SLOW IVP 2 mg Q4H PRN Administration Pain Nicotine 21 mg 06/23/19 17:00 06/27/19 17:06 Nicoderm Patch TD 21 mg 1700 TRINI Administration Ondansetron HCl 4 mg 06/20/19 13:02 06/25/19 00:17 Zofran IVP 4 mg Q6H PRN Administration Nausea/Vomiting Polyethylene Glycol 17 gm 06/25/19 09:00 06/28/19 08:53 Miralax PO 17 gm DAILY TRINI Administration Prednisone 20 mg 06/26/19 08:00 06/28/19 08:27 Prednisone PO 20 mg QAM-WM TRINI Administration Promethazine HCl 12.5 mg 06/20/19 13:02 06/26/19 21:14 Phenergan IM 12.5 mg Q4H PRN Administration Nausea/Vomiting Sertraline HCl 50 mg 06/25/19 22:00 06/27/19 20:46 Zoloft PO 50 mg 2200 TRINI Administration Tramadol HCl 50 mg 06/20/19 08:48 06/24/19 17:51 Ultram PO 50 mg Q6H PRN Administration Moderate to Severe Pain (6-10) - Exam General Appearance: awake alert, ill appearing Eye: PERRL, anicteric sclera ENT: no oropharyngeal lesions, dry oral mucosa Neck: supple, no JVD Heart: RRR, no murmur Respiratory: no wheezes, rhonchi Respiratory - other findings: right chest tube+ Gastrointestinal: soft, non-tender, normal bowel sounds Extremities: no cyanosis, 1+ LE edema Neurological: cranial nerve grossly intact, no focal deficits Hosp A/P (1) Adenocarcinoma, lung Code(s): C34.90 - MALIGNANT NEOPLASM OF UNSP PART OF UNSP BRONCHUS OR LUNG Status: Acute Qualifiers: Laterality: right Qualified Code(s): C34.91 - Malignant neoplasm of unspecified part of right bronchus or lung (2) right malignant pleural effusion Status: Acute (3) COPD (chronic obstructive pulmonary disease) Status: Chronic Qualifiers: COPD type: chronic bronchitis (4) CAD (coronary artery disease) Code(s): I25.10 - ATHSCL HEART DISEASE OF [place] CORONARY ARTERY W/O ANG PCTRS Status: Chronic Qualifiers: Coronary Disease-Associated Artery/Lesion type: [place] artery [place] vs. transplanted heart: [place] heart (5) Malnutrition of moderate degree Code(s): E44.0 - MODERATE PROTEIN-CALORIE MALNUTRITION Status: Chronic (6) Dyslipidemia Code(s): E78.5 - HYPERLIPIDEMIA, UNSPECIFIED Status: Chronic (7) H/O thoracic aortic aneurysm repair Code(s): Z98.890 - OTHER SPECIFIED POSTPROCEDURAL STATES; Z86.79 - PERSONAL HISTORY OF OTHER DISEASES OF THE CIRCULATORY SYSTEM Status: Chronic (8) Hypertension Code(s): I10 - ESSENTIAL (PRIMARY) HYPERTENSION Status: Chronic Qualifiers: (9) PAF (paroxysmal atrial fibrillation) Code(s): I48.0 - PAROXYSMAL ATRIAL FIBRILLATION Status: Chronic (10) Tobacco abuse Code(s): Z72.0 - TOBACCO USE Status: Chronic - Plan got 1 chest tube removed today, still has another one on right side await full molecular assay on lung tissue, likely not a candidate for chemo/ immunotherapy due to severe deconditioning. nebs, dulera, i.spirometry, amiodarone, norvasc, asp, lipitor, imdur, lopressor encourage po intake, ensure 1 can tid, oob to chair as tolerated has severe deconditioning prognosis guarded, likely hospice dc plan is on high flow oxygen and meropenem
[2019-06-28] MEDS: Nicotine 21 MG PATCH TD SCH (15:56)
[2019-06-28] MEDS: Atorvastatin Calcium 10 MG TAB PO SCH (21:36)
[2019-06-29] MEDS: traMADol HCl 50 MG TAB PO PRN (03:41)
[2019-06-29] MEDS: Sodium Chloride 0.45% 1,000 ML IV SCH (03:41)
[2019-06-29] MEDS: MEROPENEM 1 GM/50 ML 1 GM in Premix Bag 1 BAG IVPB SCH (06:49)
[2019-06-29] MEDS: Mometasone/Formoterol 120 PUFF INHALER INH SCH (07:41)
[2019-06-29] MEDS: Aspirin 81 mg Enteric Coated Tablet PO SCH (09:48)
[2019-06-29] MEDS: Docusate 100 MG CAP PO SCH (09:48)
[2019-06-29] MEDS: Famotidine 20 MG TAB PO SCH (09:48)
[2019-06-29] MEDS: Amiodarone 200 MG TAB PO SCH (09:48)
[2019-06-29] MEDS: predniSONE 20 MG TAB PO SCH (09:48)
[2019-06-29] MEDS: Amlodipine 10 MG TAB PO SCH (09:48)
[2019-06-29] MEDS: Metoprolol Tartrate 50 MG TAB PO SCH (09:48)
[2019-06-29] MEDS: Isosorbide Mononitrate (ER) 30 MG TAB PO SCH (09:48)
[2019-06-29] MEDS: Polyethylene Glycol 3350 17 GM Packet PO SCH (09:49)
[2019-06-29] MEDS: Morphine 2 MG/ML SYRINGE SLOW IVP PRN (09:56)
[2019-06-29 10:27] VITALS: TEMP 97
--- NOTE | 2019-06-29 13:15 | PDOC.HOSPP ---
- Subjective Encounter Date: 06/29/19 Encounter Time: 11:00 Subjective: awake, not oriented responds to few verbal questions is not eating much on high flow oxygen, has right chest tube - Objective Vital Signs & Weight: Vital Signs (12 hours) Temp Pulse Resp Pulse Ox 06/29/19 12:45 62 16 99 06/29/19 10:27 97.0 F L 06/29/19 09:48 78 06/29/19 08:00 100 06/29/19 07:45 78 20 99 06/29/19 07:41 78 20 97 06/29/19 07:19 97.2 F L 06/29/19 03:46 98.1 F Weight Admit Weight 146 lb 7 oz Weight 153 lb 6 oz Most Recent Monitor Data Heart Rate from ECG 75 NIBP 127/75 NIBP BP-Mean 92 Respiration from ECG 14 SpO2 100 I&O: 06/28/19 06/29/19 06/30/19 06:59 06:59 06:59 Intake Total 3041 2687 Output Total 1940 1290 Balance 1101 1397 Result Diagrams: 06/28/19 07:42 06/28/19 07:42 Hospitalist ROS - Medication Medications: Active Medications Generic Name Dose Route Start Last Admin Trade Name Freq PRN Reason Stop Dose Admin Acetaminophen 650 mg 06/19/19 13:37 06/20/19 03:40 Tylenol PO 650 mg Q4H PRN Administration Headache/Fever/Mild Pain (1-3) Hydrocodone Bitart/Acetaminophen 1 tab 06/20/19 13:02 06/27/19 16:54 [place] 5/325 PO 1 tab Q4H PRN Administration Mild Pain (1-3) Hydrocodone Bitart/Acetaminophen 2 tab 06/20/19 13:02 06/28/19 21:38 [place] 5/325 PO 2 tab Q4H PRN Administration Moderate Pain (4-6) Albuterol/Ipratropium 3 ml 06/19/19 19:00 06/29/19 12:45 Duoneb NEB 3 ml [id number] TRINI Administration Amiodarone HCl 100 mg 06/20/19 09:00 06/29/19 09:48 Cordarone PO 100 mg BID TRINI Administration Amlodipine Besylate 10 mg 06/20/19 09:00 06/29/19 09:48 Norvasc PO 10 mg DAILY TRINI Administration Aspirin 81 mg 06/20/19 09:00 06/29/19 09:48 Ecotrin PO 81 mg DAILY TRINI Administration Atorvastatin Calcium 10 mg 06/20/19 21:00 06/28/19 21:36 Lipitor PO 10 mg HS TRINI Administration Bisacodyl 10 mg 06/24/19 17:12 06/25/19 10:50 Dulcolax [place] 10 mg Q8H PRN Administration Constipation Docusate Sodium 100 mg 06/24/19 21:00 06/29/19 09:48 Colace PO 100 mg BID TRINI Administration Famotidine 20 mg 06/23/19 21:00 06/29/19 09:48 Pepcid PO 20 mg BID TRINI Administration Meropenem 1 gm/ Device 50 mls @ 100 mls/hr 06/19/19 22:00 06/29/19 06:49 IVPB 50 mls Q8HR TRINI Administration Sodium Chloride 1,000 mls @ 75 mls/hr 06/23/19 12:30 06/29/19 03:41 1/2 Normal Saline IV 1,000 mls .[id number] TRINI Administration Isosorbide Mononitrate 30 mg 06/20/19 09:00 06/29/19 09:48 Imdur Er PO 30 mg DAILY TRINI Administration Metoprolol Tartrate 50 mg 06/20/19 09:00 06/29/19 09:48 Lopressor PO 50 mg DAILY TRINI Administration Mometasone Furoate/Formoterol Fumar 2 puff 06/20/19 18:30 06/29/19 07:41 Dulera 200 Mcg/5 Mcg Inhaler INH 2 puff BID-RT TRINI Administration Morphine Sulfate 2 mg 06/25/19 18:31 06/29/19 09:56 Morphine SLOW IVP 2 mg Q4H PRN Administration Pain Nicotine 21 mg 06/23/19 17:00 06/28/19 15:56 Nicoderm Patch TD 21 mg 1700 TRINI Administration Ondansetron HCl 4 mg 06/20/19 13:02 06/25/19 00:17 Zofran IVP 4 mg Q6H PRN Administration Nausea/Vomiting Polyethylene Glycol 17 gm 06/25/19 09:00 06/29/19 09:49 Miralax PO 17 gm DAILY TRINI Administration Prednisone 20 mg 06/26/19 08:00 06/29/19 09:48 Prednisone PO 20 mg QAM-WM TRINI Administration Promethazine HCl 12.5 mg 06/20/19 13:02 06/26/19 21:14 Phenergan IM 12.5 mg Q4H PRN Administration Nausea/Vomiting Sertraline HCl 50 mg 06/25/19 22:00 06/28/19 21:38 Zoloft PO 50 mg 2200 TRINI Administration Tramadol HCl 50 mg 06/20/19 08:48 06/29/19 03:41 Ultram PO 50 mg Q6H PRN Administration Moderate to Severe Pain (6-10) - Exam General Appearance: ill appearing Eye: PERRL, anicteric sclera ENT: no oropharyngeal lesions, dry oral mucosa Neck: supple, symmetric Heart: no murmur, no gallops Respiratory: no wheezes, no rales Respiratory - other findings: right chest tube x 1 Gastrointestinal: soft, non-tender, normal bowel sounds Extremities: no cyanosis, no edema Neurological: cranial nerve grossly intact, no focal deficits Hosp A/P (1) Adenocarcinoma, lung Code(s): C34.90 - MALIGNANT NEOPLASM OF UNSP PART OF UNSP BRONCHUS OR LUNG Status: Acute Qualifiers: Laterality: right Qualified Code(s): C34.91 - Malignant neoplasm of unspecified part of right bronchus or lung (2) right malignant pleural effusion Status: Acute (3) COPD (chronic obstructive pulmonary disease) Status: Chronic Qualifiers: COPD type: chronic bronchitis (4) CAD (coronary artery disease) Code(s): I25.10 - ATHSCL HEART DISEASE OF [place] CORONARY ARTERY W/O ANG PCTRS Status: Chronic Qualifiers: Coronary Disease-Associated Artery/Lesion type: [place] artery [place] vs. transplanted heart: [place] heart (5) Malnutrition of moderate degree Code(s): E44.0 - MODERATE PROTEIN-CALORIE MALNUTRITION Status: Chronic (6) Dyslipidemia Code(s): E78.5 - HYPERLIPIDEMIA, UNSPECIFIED Status: Chronic (7) H/O thoracic aortic aneurysm repair Code(s): Z98.890 - OTHER SPECIFIED POSTPROCEDURAL STATES; Z86.79 - PERSONAL HISTORY OF OTHER DISEASES OF THE CIRCULATORY SYSTEM Status: Chronic (8) Hypertension Code(s): I10 - ESSENTIAL (PRIMARY) HYPERTENSION Status: Chronic Qualifiers: (9) PAF (paroxysmal atrial fibrillation) Code(s): I48.0 - PAROXYSMAL ATRIAL FIBRILLATION Status: Chronic (10) Tobacco abuse Code(s): Z72.0 - TOBACCO USE Status: Chronic - Plan got 1 chest tube removed 06/28/2019, still has another one on right side await full molecular assay on lung tissue, is not a candidate for chemo/ immunotherapy due to severe deconditioning. nebs, dulera, i.spirometry, amiodarone, norvasc, asp, lipitor, imdur, lopressor encourage po intake, ensure 1 can tid, oob to chair as tolerated has severe deconditioning prognosis guarded, likely hospice dc plan is on high flow oxygen and meropenem D/w sister over phone and gave update, is aware of poor prognosis, is currently talking to hospice
--- NOTE | 2019-06-29 19:49 | DIS ---
DATE OF ADMISSION: 06/19/2019 DATE OF DISCHARGE: 06/29/2019 PRIMARY DISCHARGE DIAGNOSIS: Poorly differentiated adenocarcinoma of right lung , stage IV with malignant pleural effusion. SECONDARY DISCHARGE DIAGNOSES: 1. Chronic obstructive pulmonary disease. 2. Coronary artery disease. 3. Moderate malnutrition. 4. Metabolic encephalopathy. 5. Dyslipidemia. 6. History of thoracic aortic aneurysm repair. 7. Hypertension. 8. Paroxysmal atrial fibrillation. 9. Tobacco abuse. PROCEDURES DONE DURING HOSPITALIZATION: The patient had CT of chest done on the day of admission, which showed interval enlargement of right pleural fluid collection with a large loculated pleural fluid extending from right lung apex to the right lung base with associated pleural thickening along the collection. There is complete collapse of the right lower lobe and masslike density in the right lung and right hilar region. There is a spiculated type mass present measuring 12.5 cm x 6.3 cm. There is right paratracheal lymph node enlargement as well. The patient had right thoracotomy with total pulmonary decortication and right lung/chest wall biopsy done by Dr. Altamirano with placement of two [place] chest tubes on 06/20/[address] Ramon Altamirano. Histopathology of this biopsy has revealed poorly- differentiated adenocarcinoma from lung, right pleura x2, all of which is positive for cancer. H and H are 11 and 36, platelet count 500, white count of 19, MCV is 92. BUN 16, creatinine 0.5, albumin is 2.3. INPATIENT CONSULTANTS: 1. Dr. Peng/Erin for Pulmonology. 2. Dr. Cisse for Infectious Disease. 3. Dr. Ramon Altamirano for Cardiothoracic Surgery. DISCHARGE DISPOSITION: The patient is being discharged to Inpatient Hospice. BRIEF COURSE DURING HOSPITALIZATION: The patient initially got admitted on the with complaints of shortness of breath. The patient has had prior hospitalization here for right-sided pleural effusion with thoracentesis done and had a suspected mass as well in the right lung. At this time, the mass had enlarged and the patient also had right lower lobe atelectasis with massive pleural effusion. He has had consultation with Dr. Ramon Altamirano. He had thoracotomy with decortication and biopsies done on the . The biopsies came back positive for poorly-differentiated adenocarcinoma. The patient was severely deconditioned and was encephalopathic all through his stay in the ICU. In view of the patient's progressive deconditioning and him being on high-flow oxygen and not being a candidate for chemo or immunotherapy, hospice evaluation was requested. The patient's sister and power of prosecuting attorney, . Shannan Landa, agreed for inpatient hospice. [facility] has accepted the patient for inpatient hospice. He will be shortly discharged to inpatient hospice. His overall prognosis is poor. Please see a [id number] documentation for the day of discharge on Marco Vasco. Job ID: [id number] MTDD
== END 2019-06-29 14:53 | disposition hospice, inpatient (51) | DRG 163 ==
LOC: ERS 09:46 → ONC 10:28 → IMCU/EMU 21:12 → CCU 06-20 12:28 → IMCU/EMU 06-28 15:16
PROVIDERS: ADMIT Internal Medicine; ATTEND Internal Medicine
PROC: 0BBK0ZX Excision of Right Lung, Open Approach, Diagnostic (ICD-10-PCS; principal; 2019-06-20)
PROC: 0BNF0ZZ Release Right Lower Lung Lobe, Open Approach (ICD-10-PCS; 2019-06-20)
PROC: 0BND0ZZ Release Right Middle Lung Lobe, Open Approach (ICD-10-PCS; 2019-06-20)
PROC: 0W990ZZ Drainage of Right Pleural Cavity, Open Approach (ICD-10-PCS; 2019-06-20)
PROC: 30233N1 Transfusion of Nonautologous Red Blood Cells into Peripheral Vein, Percutaneous Approach (ICD-10-PCS; 2019-06-22)
DX: C34.31 Malignant neoplasm of lower lobe, right bronchus or lung (principal); G93.41 Metabolic encephalopathy; J96.01 Acute respiratory failure with hypoxia; Z51.5 Encounter for palliative care; Z66 Do not resuscitate; J18.9 Pneumonia, unspecified organism; J91.0 Malignant pleural effusion; E44.0 Moderate protein-calorie malnutrition; Z68.1 Body mass index [BMI] 19.9 or less, adult; J98.11 Atelectasis; N17.9 Acute kidney failure, unspecified; J93.83 Other pneumothorax; J44.9 Chronic obstructive pulmonary disease, unspecified; I25.10 Atherosclerotic heart disease of native coronary artery without angina pectoris; E78.5 Hyperlipidemia, unspecified; I10 Essential (primary) hypertension; I48.0 Paroxysmal atrial fibrillation; F17.200 Nicotine dependence, unspecified, uncomplicated; F10.20 Alcohol dependence, uncomplicated; Z95.2 Presence of prosthetic heart valve; Z79.82 Long term (current) use of aspirin; Z74.01 Bed confinement status; Z95.1 Presence of aortocoronary bypass graft; Z88.0 Allergy status to penicillin; Z79.899 Other long term (current) drug therapy; Z88.8 Allergy status to other drugs, medicaments and biological substances
CPT/HCPCS: 36415; 36416; 36430; 71045; 71250; 80048; 80053; 83880; 85025; 86850; 86900; 86901; 87070; 87205; 88305; 88331; 88341; 88342; 94640; 94660; 96374; J0696; J1642; J1885; J2185; J2250; J2270; J2405; J2550; J2704; J3010; J3490; J7512; J7620; P9016; S0020; S0028

== ENCOUNTER 2019-06-29 14:54 | Inpatient (IN) | payer OTHER ==
[2019-06-29] MEDS ORDERED: Lorazepam 2 MG/ML VIAL SLOW IVP PRN (15:20)
[2019-06-29] MEDS ORDERED: ALPRAZolam 0.25 MG TAB PO PRN (15:20)
[2019-06-29] MEDS ORDERED: Zolpidem Tartrate 5 MG TAB PO PRN (15:20)
[2019-06-29] MEDS ORDERED: Morphine 10 MG/0.5 ML ORAL SYRINGE SL PRN (15:20)
[2019-06-29] MEDS ORDERED: Milk Of Magnesia 30 ML UDCUP PO PRN ×2 (15:20→16:18)
[2019-06-29] MEDS ORDERED: Morphine 4 MG/ML VIAL SLOW IVP PRN (15:20)
[2019-06-29] MEDS ORDERED: Loperamide HCl 2 MG CAP PO PRN (15:20)
[2019-06-29] MEDS ORDERED: Lorazepam 1 MG TAB PO PRN ×2 (15:20)
[2019-06-29] MEDS ORDERED: chlorproMAZINE HCl 50 MG/2 ML AMP IM PRN ×2 (15:20)
[2019-06-29] MEDS ORDERED: Haloperidol Lactate 5 MG/ML VIAL SLOW IVP PRN (15:20)
[2019-06-29] MEDS ORDERED: Ondansetron PF 4 MG/2 ML Vial IVP PRN (15:20)
[2019-06-29] MEDS ORDERED: Ondansetron ODT 4 MG TAB PO PRN (15:20)
[2019-06-29] MEDS ORDERED: Promethazine HCl 25 MG SUPP PR PRN (15:20)
[2019-06-29] MEDS ORDERED: Acetaminophen 325 MG TAB PO PRN (15:20)
[2019-06-29] MEDS ORDERED: Acetaminophen 650 MG Suppository PR PRN (15:20)
[2019-06-29] MEDS ORDERED: Scopolamine 1.5 mg/72 hour Patch TOP PRN ×2 (15:20)
[2019-06-29] MEDS ORDERED: Morphine IR Tab 15 MG TAB PO PRN (15:20)
[2019-06-29] MEDS ORDERED: diphenhydrAMINE 25 MG CAP PO PRN (15:20)
[2019-06-29] MEDS ORDERED: Hyoscyamine Sulfate SL 0.125 mg Tablet SL PRN (15:20)
[2019-06-29] MEDS ORDERED: chlorproMAZINE HCl 25 MG in Sodium Chloride 0.9% 50 ML IVPB PRN (15:20)
[2019-06-29] MEDS ORDERED: diphenhydrAMINE 50 MG/ML VIAL IVP PRN (15:20)
[2019-06-29] MEDS ORDERED: Haloperidol 1 MG TAB PO PRN (15:20)
[2019-06-29] MEDS ORDERED: Senokot 8.6 MG TAB PO PRN (15:20)
[2019-06-29] MEDS ORDERED: Ibuprofen 200 MG TAB PO PRN (15:26)
[2019-06-29] MEDS: Morphine 4 MG/ML VIAL SLOW IVP PRN ×2 (15:31→21:07)
--- NOTE | 2019-06-29 16:00 | PDOC.FPRHP ---
- History of Present Illness Chief Complaint: Hospice Care History of Present Illness: This is a 69 yo AA male who is being admitted to inpatient Hospice at this time after being found to have poorly differentiated Lung adenocarcinoma. This was recently diagnosed from a Thoracotamy and biopsies done on 06/20. Pt has had chest tube in place ever since on the R. lung. Pt was never a canidate for chemo due to weakness. They tried to encourage eating and consulted PT. Yet over the last week pt quickly declined and continued to get weaker. At this time pt can not even sit up on the side of the bed. Pt has not had capacity to fully make medical decisions. It was decided with patient sister who has been helping managing care to be placed on hospice. Pt is alert and oriented x2. Pt tires easily even with talking. Pt still on 40% Hiflo nasal cannula. Talking with nurse plan will be to slowly wean off onto palliative O2 care. Pt denies any pain at this time. Pt has no acute concerns at this time. Pt seems pleasantly altered at this time. No acute distress noted. - Allergies/Adverse Reactions Allergies Allergy/AdvReac Type Severity Reaction Status Date / Time diltiazem HCl [From [facility]] Allergy Severe Hives Verified 06/19/19 18:10 Penicillins Allergy Hives Verified 06/06/19 01:08 - Home Medications Medication Instructions Recorded Confirmed Type Amlodipine [Norvasc] 10 mg PO DAILY 08/23/18 06/19/19 History cloNIDine [Catapres] 0.1 mg PO BID 08/23/18 06/19/19 History Isosorbide Mononitrate [Isosorbide 30 mg PO DAILY 05/26/19 06/19/19 History Mononitrate ER] Acetaminophen [Tylenol] 650 mg PO Q4H PRN 06/05/19 06/19/19 History Amiodarone [Cordarone] 100 mg PO BID tab 06/05/19 06/19/19 Rx Bisacodyl [Dulcolax] 10 mg CA Q8H PRN 06/05/19 06/19/19 History Docusate [Colace] 100 mg PO BID cap 06/05/19 06/19/19 Rx Famotidine [Pepcid] 20 mg PO BID 06/05/19 06/19/19 History Ibuprofen [Motrin] 400 mg PO TID PRN 06/05/19 06/19/19 History Ipratropium/Albuterol Sulfate 3 ml NEB Q4H 06/05/19 06/19/19 History [DuoNeb] Ipratropium/Albuterol Sulfate 3 ml NEB Q4HR PRN 06/05/19 06/19/19 History [DuoNeb] Magnesium Hydroxide [Milk Of 30 ml PO DAILY PRN 06/05/19 06/19/19 History Magnesium] Mometasone/Formoterol 200/5 2 puff INH BID-RT aer 06/05/19 06/19/19 Rx [Dulera 200 Mcg/5 Mcg Inhaler] Morphine 1 mg IVP Q4HR PRN 06/05/19 06/19/19 History Ondansetron 2 MG/ML [Zofran 2 4 mg IVP Q6H PRN 06/05/19 06/19/19 History MG/ML] Polyethylene Glycol 3350 [Miralax] 17 gm PO DAILY 06/05/19 06/19/19 History Sennosides/Docusate Sodium 2 tab PO BID PRN 06/05/19 06/19/19 History [Senokot S] cloNIDine [Catapres] 0.1 mg PO Q12H PRN MDD 2.4MG DAY 06/05/19 06/19/19 History ALPRAZolam [Xanax] 0.25 mg PO Q8H PRN 06/19/19 06/19/19 History Albuterol Sulfate 1.25 mg NEB Q8H PRN neb 06/19/19 06/19/19 Rx Ondansetron [Zofran ODT] 4 mg PO Q6H PRN tab 06/19/19 06/19/19 Rx Sodium Chloride 0.9% [Normal 1 ml IVPB Q24HR@1300 bag 06/19/19 06/19/19 Rx Saline 0.9%] traMADol HCl [Ultram] 50 mg PO Q6H PRN tab 06/19/19 06/19/19 Rx Comments: At this time we have d/c'ed all pt - History PMHx: Parapneumonic Effusion, Poorly differentiated Adenocarcinoma, COPD, CAD, HTN PSHx: Bypass surgery in 2017, Aortic Dissection Repair 2017, L. Knee surgery FHx: Significant for HTN and CAD Social: Pt smoked heavily for last 40-45 years 1 ppd. Before admission still smoking cigars. Quit drinking back in 2017. Sister Gretel Landa is surrogate decision maker - Review of Systems ROS unobtainable: due to mental status (Pt denied any sx's at this time.) - Vital signs BP: [] HR: [] RR: [] Tmax: [] Pox: []% on [] Wt: [] - Physical Exam Constitutional: NAD -Constitutional: Pt tires easily with short conversation. Pt is cachetic appearing. HEENT: grossly normal vision, grossly normal hearing Neck: supple, no JVD -Neck: Has large mass on R. side of neck. No fluctuant. No pillow sign. Heart: RRR, no murmurs/rubs/gallops -Lungs: Decreased lungs sounds on Right. Diffuse crackles. No wheezing noted. Left lung CTA. Abdomen: soft -Abdomen: Mildy distened. NTTP. no masses noted. -Musculoskeletal: Pt cachetic. Pt very weak. Pt can hardly raise himself from bed. -Neurological: Unable to fully assess due to mental status. Skin: no rash/lesions Heme/Lymphatic: no unusual bruising or bleeding, no petechia -Psychiatric: Pt tires easily with conversation. Pt able to answer questions appropriatley. Difficult to understand. FMR H&P: Results - Radiology Interpretation Chest x-ray Status: image reviewed by me, report reviewed by me (06/27 Cxray stable from previous. Showed chest tubes in place.) FMR H&P: A/P - Problem List (1) Acute respiratory failure with hypoxia Current Visit: No Status: Acute Code(s): J96.01 - ACUTE RESPIRATORY FAILURE WITH HYPOXIA (2) Adenocarcinoma, lung Current Visit: No Status: Acute Code(s): C34.90 - MALIGNANT NEOPLASM OF UNSP PART OF UNSP BRONCHUS OR LUNG Qualifiers: Laterality: right Qualified Code(s): C34.91 - Malignant neoplasm of unspecified part of right bronchus or lung (3) Parapneumonic effusion Current Visit: No Status: Acute Code(s): J18.9 - PNEUMONIA, UNSPECIFIED ORGANISM; J91.8 - PLEURAL EFFUSION IN OTHER CONDITIONS CLASSIFIED ELSEWHERE (4) CAD (coronary artery disease) Current Visit: No Status: Chronic Code(s): I25.10 - ATHSCL HEART DISEASE OF [place] CORONARY ARTERY W/O ANG PCTRS Qualifiers: Coronary Disease-Associated Artery/Lesion type: [place] artery [place] vs. transplanted heart: [place] heart (5) COPD (chronic obstructive pulmonary disease) Current Visit: No Status: Chronic Qualifiers: COPD type: chronic bronchitis (6) Hypertension Current Visit: No Status: Chronic Code(s): I10 - ESSENTIAL (PRIMARY) HYPERTENSION Qualifiers: - Plan Hospice Care 2/2 poorly differentiated lung Adenocarcinom and severe deconditioning. -Pt strength has slowly been worsening since admission and surgery. Pt is altered at times and unable to make decisions. Descision was made to go on hospice care with pt and his surrogate decision maker his sister. -Pt is not canidate for chemo due to severe deconditioning. Pt is not candidate for tx per Dr. Miles with Oncology. -At this time we have ordered palliative care measures. We have medication for pain, agitation, restlesness. We will titrate pain medication as needed. -We will start to wean pt off hiflo nasal cannula and transition to palliative oxygen. FMR H&P: Upper Level - Plan \ Addendum - Attending - Attending Attestation Date/Time: 06/29/191955 I personally evaluated the patient and discussed the management with Dr. Starr I agree with the History, Examination, Assessment and Plan documented above with any addition or exceptions noted below - 69 yo male with recently diagnosed stage 4 lung cancer s/p decortication admitted to inpatient hospice. Family desiring comfort care. Care p-leon reviewed with nurse and residnet. Will try and wean high flow O2 as tolerated. Orders for signs and symptom management signed.
[2019-06-29] MEDS ORDERED: Bisacodyl 10 MG SUPP PR PRN (16:18)
[2019-06-29] MEDS: Famotidine 20 MG TAB PO SCH (21:06)
[2019-06-29] MEDS: Docusate 100 MG CAP PO SCH (21:06)
[2019-06-29] MEDS: Lorazepam 2 MG/ML VIAL SLOW IVP PRN (21:07)
[2019-06-30] MEDS: Morphine 4 MG/ML VIAL SLOW IVP PRN ×3 (02:14→13:59)
[2019-06-30] MEDS: Lorazepam 2 MG/ML VIAL SLOW IVP PRN (02:15)
[2019-06-30 03:44] VITALS: BP 112/63
[2019-06-30 03:53] VITALS: BMI 17.8
[2019-06-30] MEDS ORDERED: predniSONE 20 MG TAB PO SCH (08:00)
--- NOTE | 2019-06-30 08:01 | PDOC.FM ---
- Subjective Subjective: no acute events overnight per nursing. Pt resting comfortably. - Objective Vital Signs & Weight: Vital Signs (12 hours) Temp Pulse Resp BP Pulse Ox 06/30/19 07:18 96.5 F L 06/30/19 06:50 90 L 06/30/19 06:47 73 20 80 L 06/30/19 02:00 79 12 112/63 97 06/30/19 01:00 78 14 134/81 92 L 06/30/19 00:00 97.5 F L 71 14 131/73 92 L 06/29/19 23:23 68 16 94 L 06/29/19 23:00 66 15 125/67 95 06/29/19 22:00 66 18 100/59 L 94 L 06/29/19 21:00 72 16 122/70 91 L Weight Weight 66.423 kg Most Recent Monitor Data Heart Rate from ECG 61 NIBP 184/93 NIBP BP-Mean 123 Respiration from ECG 16 SpO2 86 I&O: 06/29/19 06/30/19 07/01/19 06:59 06:59 06:59 Intake Total 200 Balance 200 Phys Exam - Physical Examination Constitutional: NAD HEENT: moist MMs, sclera anicteric Neck: no JVD, supple Respiratory: no wheezing, no rales Cardiovascular: RRR, no significant murmur Gastrointestinal: soft, non-tender Musculoskeletal: no edema, pulses present Neurological: non-focal Psychiatric: normal affect Skin: no rash, normal turgor Dx/Plan (1) Adenocarcinoma, lung Code(s): C34.90 - MALIGNANT NEOPLASM OF UNSP PART OF UNSP BRONCHUS OR LUNG Status: Acute Qualifiers: Laterality: right Qualified Code(s): C34.91 - Malignant neoplasm of unspecified part of right bronchus or lung (2) COPD (chronic obstructive pulmonary disease) Status: Chronic Qualifiers: COPD type: chronic bronchitis (3) H/O thoracic aortic aneurysm repair Code(s): Z98.890 - OTHER SPECIFIED POSTPROCEDURAL STATES; Z86.79 - PERSONAL HISTORY OF OTHER DISEASES OF THE CIRCULATORY SYSTEM Status: Chronic (4) Malnutrition of moderate degree Code(s): E44.0 - MODERATE PROTEIN-CALORIE MALNUTRITION Status: Chronic (5) Tobacco abuse Code(s): Z72.0 - TOBACCO USE Status: Chronic - Plan Plan: Hospice Care 2/2 poorly differentiated lung Adenocarcinom and severe deconditioning. A- Pt strength has slowly been worsening since admission and surgery. Pt is altered at times and unable to make decisions. Descision was made to go on hospice care with pt and his surrogate decision maker his sister. Pt is not canidate for chemo due to severe deconditioning. Pt is not candidate for tx per Dr. Miles with Oncology. P- palliative care measures. We have medication for pain, agitation, restlesness. We will titrate pain medication as needed. -may wean to NC from high flow NC with goal of making pt more comfortable. Addendum - Attending - Attending Attestation Date/Time: 06/30/19 1111 I personally evaluated the patient and discussed the management with Dr. Santiago I agree with the History, Examination, Assessment and Plan documented above with any addition or exceptions noted below. Patient denies complaints this morning. Instructed nursing to wean off HFNC regardless of SPO2 and treat patient symptomatically. Patient was able to be successfully weaned off without any discomfort. Family requesting transfer to [facility] since they live there. Will attempt to coordinate transfer with [facility].
[2019-06-30] MEDS: Famotidine 20 MG TAB PO SCH (09:28)
[2019-06-30] MEDS: Docusate 100 MG CAP PO SCH (09:28)
[2019-06-30 16:09] VITALS: TEMP 97.4
== END 2019-06-30 17:46 | disposition hospice, inpatient (51) | DRG 951 ==
LOC: IMCU/EMU 14:54
PROVIDERS: ADMIT Family Medicine; ATTEND Family Medicine
DX: Z51.5 Encounter for palliative care (principal); J96.01 Acute respiratory failure with hypoxia; C34.91 Malignant neoplasm of unspecified part of right bronchus or lung; E44.0 Moderate protein-calorie malnutrition; Z68.1 Body mass index [BMI] 19.9 or less, adult; Z66 Do not resuscitate; J44.9 Chronic obstructive pulmonary disease, unspecified; I25.10 Atherosclerotic heart disease of native coronary artery without angina pectoris; I10 Essential (primary) hypertension; Z88.0 Allergy status to penicillin; Z88.8 Allergy status to other drugs, medicaments and biological substances; Z79.51 Long term (current) use of inhaled steroids; Z79.899 Other long term (current) drug therapy; F17.290 Nicotine dependence, other tobacco product, uncomplicated
CPT/HCPCS: J2060; J2270; J7512; J7620